=== PATIENT | female | born 1945 | race Caucasian/White ===

== ENCOUNTER 2018-04-15 08:24 | Inpatient (IN) ==
[2018-04-15 08:30] VITALS: BMI 18.0
[2018-04-15] MEDS ORDERED: DUONEB 0.5 MG/3 MG ONE (08:49)
--- NOTE | 2018-04-15 08:51 | DR.DIZZY ---
HPI Time seen Time Seen by Provider: 04/15/18 08:45 PCP Primary Care Physician: AVILA HPI Comment HPI Comment: [facility]. NOT RECOVERED FROM THAT ILLNESS YET. Complaint Chief Complaint Doctor Comments: INCREASING SOB, COUGH, NAUSEA AND GENERALIZE WEAKNESS TIMES 2 DAYS. GENERALIZE WEAKNESS FOR WEEKS AND GETTING WORSE. FEEL FOOD SIT IN HER STOMACK FOR A LONG TIME AND HAVE ABDOMINAL DISCOMFORT FROM IT. NO FEVER. Chief Complaint:: PT. C/O WEAKNESS, NAUSEA, LOW O2 SAT AND A PRODUCTIVE COUGH X 2 DAYS. PT. STATES SHE WAS ADMITTED TO [facility] ON 04/08/18 FOR RESPIRATORY ISSUES. Nurses Notes Reviewed Nurses Notes Review: Yes Source History Provided: Patient Mode of Arrival Mode of Arrival: Wheelchair Timing Onset of Chief Complaint: 04/13/18 Came on: Suddenly Duration Duration: Constant Location of Weakness Weakness Location: Generalized (WEAKNESS.) Context Onset: At rest and With light exertion Does pt take pot. toxic medication?: No History of: DM Stroke Symptoms: None Severity Severity: Abnormal activity level Modifying factors Worsens: Other (EXERTION) Associated signs and symptoms Associated Signs and Symptoms: Weak, Chest Pain and Nausea Other history Other history: COPD, CHF. PMH PMH Past Medical History: Yes Past Medical History: Anxiety, CHF, COPD, Coronary Artery Disease, Kidney Stones and Renal Disease Past Surgical History: Yes Surgical History: Other Past Surgical History Comment: RIGHT NEPHRECTOMY, LEFT EYE Family History History of Family Medical Conditions: Yes Family Medical History: Cancer Social History Does patient currently use any type of tobacco product: No Have you used tobacco products in the last 12 months: No Type of Tobacco Use: None Does any household member use tobacco: No Alcohol Use: None Do you use any recreational Drugs:: No Lives With: Family Lives Where: Home infectious screening In the last 2 months have you had wt loss of >10#?: NO Have you had fever, night sweats or hemotysis?: No Have you traveled outside the country in the last 6 months?: No Isolation: Standard ROS Review of Systems Constitutional: Fever, Weakness and Fatigue Eyes: No Symptoms Reported ENTM: Nose Congestion Respiratoy: Productive Cough, Short of Breath and Wheezing Cardiovascular: Chest Pain and Edema Gastrointestinal/Abdominal: Abdominal Pain and Nausea Genitourinary: No Symptoms Reported Neurological: Weakness Musculoskeletal: Muscle Pain Integumentary: Change in Color Hematologic/Lymphatic: Easy Bleeding and Easy Bruising Endocrine: No Symptoms Reported Psychiatric: No Symptoms Reported All Other Systems: Reviewed and Negative PE Vital Signs Vitals: Temperature 99.3 F Pulse Rate [Apical] 83 Pulse Rate 98 Respiratory Rate 25 Blood Pressure [Left Arm] 122/47 Blood Pressure [Right Arm] 130/62 Blood Pressure 133/59 O2 Sat by Pulse Oximetry 93 General Limitations: No Limitations General Appearance: Alert and In Distress Head Head Exam: Normal Inspection Eyes Eye exam: Normal Appearance Pupils: Regular, Round: Bilateral and Reactive: Bilateral Sclera/Conjunctival: Normal Inspection: Bilateral ENT ENT Exam: Normal External Ear Exam Neck Neck Exam: Trachea Midline; negative Tenderness, Meningismus and Lymphadenopathy Chest Chest Inspection: Symmetric Chest Wall Rise Respiratory Respiratory Exam: Normal Lung Sounds Bilat Respiratory Exam: Bilateral: Wheezing and Bilateral: Rhonchi, Upper: Wheezing and Upper: Rhonchi and Lower: Wheezing and Lower: Rhonchi Cardiovascular Cardiovascular Exam: Regular Rate and Normal Rhythm Abdominal Exam Abdominal Exam: Normal Bowel Sounds and Soft; negative Tenderness Rectal Rectal Exam: Deferred Extremeties Extremities Exam: Normal Inspection; negative Edema Back Back Exam: Normal Inspection Neurologic Neurological Exam: Alert and Oriented X3; negative Motor Sensory Deficit Patient Oriented To: Person, Place and Time Speech: Fluid Speech Cranial Nerve Exam: EOM Function (II, III, IV, ): Normal, Facial Sensation (V): Normal, Facial Palsy (VII): Normal, Gag reflex (XI): Normal and Tongue Deviation: Normal Motor Strength - LUE: 5/5 Motor Strength - RUE: 5/5 Motor Strength - LLE: 5/5 Motor Strength - RLE: 5/5 Upper Motor Neuron Exam: Babinski Sign: Normal Psychiatric Psychiatric Exam: Normal Affect and Normal Mood Skin Skin Exam: Intact MDM Differential Diagnosis Differential Diagnosis: Anemia, Dehydration, Dysrhythmia, Electrolyte disorder, Hypoglycemia, Myocardial infarction and Other (PNEUMONIA) COURSE Treatment Treatment: SEE ORDERS. Education/Counseling Education/Counseling: Patient Educated On: Diagnosis ROR Labs Reviewed Result Diagrams: 04/15/18 08:55 04/15/18 08:55 Laboratory: WBC 10.9 X10^3/uL (3.6-10.0) H 04/15/18 08:55 RBC 4.23 X10^6/uL (3.5-5.4) 04/15/18 08:55 Hgb 12.8 g/dL (12.0-16.0) 04/15/18 08:55 Hct 38.1 % (36.0-47.0) 04/15/18 08:55 MCV 90.0 fL (80.0-100.0) 04/15/18 08:55 MCH 30.3 pg (27.0-34.0) 04/15/18 08:55 MCHC 33.7 g/dL (33.0-35.0) 04/15/18 08:55 RDW 14.7 % (11.6-16.5) 04/15/18 08:55 Plt Count 233 X10^3/uL (150.0-450.0) 04/15/18 08:55 MPV 7.7 fL (7.4-11.0) 04/15/18 08:55 Neut % (Auto) 78.8 % (42.0-75.0) H 04/15/18 08:55 Lymph % (Auto) 7.3 % (21.0-51.0) L 04/15/18 08:55 [place] % (Auto) 11.0 % (0.0-13.0) 04/15/18 08:55 Eos % (Auto) 2.3 % (0.9-2.9) 04/15/18 08:55 Baso % (Auto) 0.6 % (0.2-1.0) 04/15/18 08:55 Neut # (Auto) 8.6 x10^3/uL (2.2-4.8) H 04/15/18 08:55 Lymph # (Auto) 0.8 X10^3/uL (1.3-2.9) L 04/15/18 08:55 [place] # (Auto) 1.2 x10^3/uL (0.3-0.8) H 04/15/18 08:55 Eos # (Auto) 0.3 x10^3/uL (0.0-0.2) H 04/15/18 08:55 Baso # (Auto) 0.1 X10^3/uL (0.0-0.1) 04/15/18 08:55 Absolute Nucleated RBC 0.1 /100WBC 04/15/18 08:55 Sample Site Left brachial 04/15/18 08:52 ABG pH 7.330 (7.35-7.45) L 04/15/18 08:52 ABG pCO2 83.0 mmHg (35.0-45.0) H* 04/15/18 08:52 ABG pO2 46.0 mmHg (80.0-100.0) L* 04/15/18 08:52 ABG HCO3 43.8 mmol/L (22-26) H* 04/15/18 08:52 ABG O2 Saturation 78.0 % (90-100) L* 04/15/18 08:52 ABG Base Excess 14.2 mmol/L (-2.0-2.0) H 04/15/18 08:52 Ramin Test Na 04/15/18 08:52 A-a Gradient 50.0 mmHg 04/15/18 08:52 FiO2 28.0 04/15/18 08:52 Blood Gas Comments Lizandro well aw 04/15/18 08:52 Sodium 137 mmol/L (136-145) 04/15/18 08:55 Corrected Sodium TNP 04/15/18 08:55 Potassium 4.8 mmol/L (3.5-5.1) 04/15/18 08:55 Chloride 97 mmol/L (98-107) L 04/15/18 08:55 Carbon Dioxide 36.8 mmol/L (21-32) H 04/15/18 08:55 BUN 13 mg/dL (7-18) 04/15/18 08:55 Creatinine 0.55 mg/dL (0.55-1.02) 04/15/18 08:55 Est GFR (MDRD) Af Amer > 60 (>60) 04/15/18 08:55 Est GFR (MDRD) Non-Af > 60 (>60) 04/15/18 08:55 Glucose 101 mg/dL (65-99) H 04/15/18 08:55 Lactic Acid 0.5 mmol/L (0.4-2.0) 04/15/18 08:55 Calcium 8.5 mg/dL (8.5-10.1) 04/15/18 08:55 Corrected Calcium 9.5 mg/dL (8.5-10.1) 04/15/18 08:55 Total Bilirubin 0.70 mg/dL (0.2-1.0) 04/15/18 08:55 AST 25 Units/L (15-37) 04/15/18 08:55 ALT 20 Units/L (12-78) 04/15/18 08:55 Alkaline Phosphatase 69 Units/L (46-116) 04/15/18 08:55 Creatine Kinase 18 Units/L (26-192) L 04/15/18 08:55 CK-MB (CK-2) < 1.0 ng/mL (0-4.0) 04/15/18 08:55 CK/CKMB % Calc 5.6 % (<4) 04/15/18 08:55 Troponin I 0.02 ng/mL (0-1.5) 04/15/18 08:55 C-Reactive Protein 56.40 mg/L (0-3.0) H 04/15/18 08:55 Total Protein 6.7 g/dL (6.4-8.2) 04/15/18 08:55 Albumin 2.8 g/dL (3.4-5.0) L 04/15/18 08:55 Globulin 3.9 g/dL (2.5-4.5) 04/15/18 08:55 Albumin/Globulin Ratio 0.7 Ratio (1.1-2.1) L 04/15/18 08:55 EKG Rate: 95 [place]: Normal Rhythm: NSR Block: LBBB Hypertrophy: None ST: Ant, Lat and Nonsp
[2018-04-15 09:07] LABS: ABG BASE EXCESS 14.2 mmol/L (-2.0-2.0)
[2018-04-15] MEDS ORDERED: DUONEB 0.5 MG/3 MG NEB ONE (09:07)
[2018-04-15 09:09] LABS: ABG HCO3 43.8 mmol/L (22-26)
[2018-04-15 09:19] LABS: BASOPHILS # (AUTO) 0.1 X10^3/uL (0.0-0.1); BASOPHILS % (AUTO) 0.6 % (0.2-1.0); EOSINOPHILS # (AUTO) 0.3 x10^3/uL (0.0-0.2); EOSINOPHILS % (AUTO) 2.3 % (0.9-2.9); HEMATOCRIT 38.1 % (36.0-47.0); HEMOGLOBIN 12.8 g/dL (12.0-16.0); LYMPHOCYTES # (AUTO) 0.8 X10^3/uL (1.3-2.9); LYMPHOCYTES % (AUTO) 7.3 % (21.0-51.0); MEAN CORPUSCULAR HEMOGLOBIN 30.3 pg (27.0-34.0); MEAN CORPUSCULAR HGB CONC 33.7 g/dL (33.0-35.0); MEAN PLATELET VOLUME 7.7 fL (7.4-11.0); MONOCYTES # (AUTO) 1.2 x10^3/uL (0.3-0.8); NEUTROPHILS # (AUTO) 8.6 x10^3/uL (2.2-4.8); NEUTROPHILS % (AUTO) 78.8 % (42.0-75.0); PLATELET COUNT 233 X10^3/uL (150.0-450.0); RED BLOOD COUNT 4.23 X10^6/uL (3.5-5.4); RED CELL DISTRIBUTION WIDTH 14.7 % (11.6-16.5); WHITE BLOOD COUNT 10.9 X10^3/uL (3.6-10.0)
[2018-04-15 09:32] LABS: BLOOD UREA NITROGEN 13 mg/dL (7-18); CALCIUM 8.5 mg/dL (8.5-10.1); CARBON DIOXIDE 36.8 mmol/L (21-32); CHLORIDE 97 mmol/L (98-107); CREATININE 0.55 mg/dL (0.55-1.02); SODIUM 137 mmol/L (136-145); TROPONIN I 0.02 ng/mL (0-1.5); eGFR NON BLACK RACES > 60 (>60)
[2018-04-15 09:34] LABS: LACTIC ACID 0.5 mmol/L (0.4-2.0)
[2018-04-15 09:37] LABS: ALANINE AMINOTRANSFERASE 20 Units/L (12-78); ALBUMIN 2.8 g/dL (3.4-5.0); ALKALINE PHOSPHATASE 69 Units/L (46-116); ASPARTATE AMINO TRANSFERASE 25 Units/L (15-37); CKMB % 5.6 % (<4); COR CA(FOR HYPOALB) 9.5 mg/dL (8.5-10.1); CREATINE KINASE 18 Units/L (26-192); CREATINE KINASE MB < 1.0 ng/mL (0-4.0); TOTAL PROTEIN 6.7 g/dL (6.4-8.2)
--- NOTE | 2018-04-15 09:52 | RAD ---
HISTORY: Shortness of breath, weakness, hypoxia Study: Chest AP portable Comparison: 02/13/2016 Findings: The heart is within normal limits in size. The xavier are normal. The aorta is calcified. The lungs are hyperinflated consistent with COPD. Diffuse interstitial lung changes are present progressive when compared with the prior examination. A superimposed acute pneumonitis could not be excluded. Pleuro parenchymal scarring is present in the right lung apex stable when compared with the prior examination. The bony thorax is unremarkable. IMPRESSION: Hyperinflation consistent with COPD diffuse interstitial lung changes progressive when compared with the prior examination. This could represent progressive fibrotic change or superimposed acute pneumonitis Stable pleuro parenchymal scarring right upper lobe Reported By:
[2018-04-15] MEDS ORDERED: SOLU-Medrol 125 MG VIAL IVP ONE (09:58)
[2018-04-15] MEDS ORDERED: ROCEPHIN VIAL 1 GRAM IVP ONE (09:58)
[2018-04-15] MEDS ORDERED: ROCEPHIN VIAL 1 GRAM ONE (10:10)
[2018-04-15] MEDS ORDERED: SOLU-Medrol 125 MG VIAL ONE (10:10)
[2018-04-15] MEDS: DUONEB 0.5 MG/3 MG NEB SCH ×3 (12:00→20:49)
[2018-04-15] MEDS ORDERED: SOLU-Medrol 125 MG VIAL IVP SCH (14:00)
[2018-04-15] MEDS ORDERED: XANAX PO PRN (14:49)
[2018-04-15] MEDS ORDERED: PREVNAR 13 IM ONE (18:25)
[2018-04-15] MEDS: SOLU-Medrol 40 MG VIAL IVP SCH (20:25)
[2018-04-15] MEDS: PULMICORT NEB TX 0.5 MG NEB SCH (20:49)
[2018-04-15] MEDS ORDERED: PATIENT'S HOME MEDICATION (Fluticasone-Salmeterol 1 PUFF) IN SCH (21:00)
[2018-04-15 23:02] LABS: BILIRUBIN,URINE NEGATIVE (NEGATIVE); BLOOD/HEMOGLOBIN,URINE 5+ (NEGATIVE); GLUCOSE, URINE 2+ (NEGATIVE); KETONES,URINE 1+ (NEGATIVE); LEUKOCYTE ESTERASE ,URINE 1+ (NEGATIVE); NITRITES,URINE NEGATIVE (NEGATIVE); PROTEIN,URINE 4+ (NEGATIVE); UROBILINOGEN,URINE NORMAL (NORMAL)
[2018-04-15 23:48] LABS: AMORPHOUS SEDIMENT,UR TRACE /HPF (NEGATIVE); APPEARANCE,URINE SLIGHTLY HAZY (CLEAR); BACTERIA,URINE TRACE /HPF (NEGATIVE); COLOR,URINE DARK YELLOW (YELLOW); RBC,URINE 30-50 /HPF (NONE SEEN); SQUAMOUS EPITHELIAL CELL,UR FEW /HPF (NEGATIVE)
[2018-04-16] MEDS: DUONEB 0.5 MG/3 MG NEB SCH ×6 (01:01→20:34)
[2018-04-16 06:22] LABS: BASOPHILS % (AUTO) 0.1 % (0.2-1.0); HEMATOCRIT 40.3 % (36.0-47.0); HEMOGLOBIN 13.3 g/dL (12.0-16.0); LYMPHOCYTES # (AUTO) 0.2 X10^3/uL (1.3-2.9); LYMPHOCYTES % (AUTO) 3.1 % (21.0-51.0); MEAN CORPUSCULAR HEMOGLOBIN 30.1 pg (27.0-34.0); MEAN CORPUSCULAR HGB CONC 32.9 g/dL (33.0-35.0); MEAN CORPUSCULAR VOLUME 91.5 fL (80.0-100.0); MEAN PLATELET VOLUME 8.1 fL (7.4-11.0); MONOCYTES # (AUTO) 0.2 x10^3/uL (0.3-0.8); MONOCYTES % (AUTO) 2.2 % (0.0-13.0); NEUTROPHILS # (AUTO) 7.5 x10^3/uL (2.2-4.8); NEUTROPHILS % (AUTO) 94.6 % (42.0-75.0); PLATELET COUNT 203 X10^3/uL (150.0-450.0); RED BLOOD COUNT 4.41 X10^6/uL (3.5-5.4); RED CELL DISTRIBUTION WIDTH 14.9 % (11.6-16.5)
[2018-04-16 06:37] LABS: ALANINE AMINOTRANSFERASE 20 Units/L (12-78); ALBUMIN 2.7 g/dL (3.4-5.0); ALKALINE PHOSPHATASE 66 Units/L (46-116); ASPARTATE AMINO TRANSFERASE 20 Units/L (15-37); BLOOD UREA NITROGEN 25 mg/dL (7-18); CALCIUM 8.9 mg/dL (8.5-10.1); CARBON DIOXIDE 35.3 mmol/L (21-32); CHLORIDE 99 mmol/L (98-107); COR CA(FOR HYPOALB) 9.9 mg/dL (8.5-10.1); COR NA(FOR HYPERGLY) 140 mmol/L (136-145); CREATININE 0.67 mg/dL (0.55-1.02); SODIUM 139 mmol/L (136-145); TOTAL PROTEIN 6.9 g/dL (6.4-8.2); eGFR NON BLACK RACES > 60 (>60)
[2018-04-16 07:03] LABS: BAND NEUTROPHILS % 2 % (0-10); PLATELET MORPHOLOGY COMMENT NORMAL (NORMAL)
[2018-04-16] MEDS ORDERED: NORVASC TAB 2.5 MG ONE (07:58)
[2018-04-16] MEDS: SOLU-Medrol 40 MG VIAL IVP SCH ×3 (08:24→20:59)
[2018-04-16] MEDS: NORVASC TAB 2.5 MG PO SCH (08:24)
[2018-04-16] MEDS: ROCEPHIN VIAL 1 GRAM IVP SCH (08:24)
[2018-04-16] MEDS: PULMICORT NEB TX 0.5 MG NEB SCH ×2 (08:54→20:34)
[2018-04-16] MEDS ORDERED: NS 250 ML IV 250 ML IV ONE (11:03)
[2018-04-16] MEDS: PROTONIX INJ 40 MG VIAL IVP SCH (11:12)
[2018-04-16] MEDS: LEVAQUIN PREMIX IV 500 MG 500 MG/100 ML BAG IV SCH (11:12)
[2018-04-16] MEDS ORDERED: NS 1/2 1000 ML IV 1,000 ML IV ONE (17:36)
[2018-04-16] MEDS: NS 1/2 1000 ML IV 1,000 ML IV SCH (18:01)
--- NOTE | 2018-04-16 19:03 | DR.H&P ---
H&P - History & Physical for Day of: H&P Date: 04/15/18 - Chief Complaint Chief Complaint: SOB, CCC, WHEEZING - History of Present Illness History of Present Illness: 72 WF ER ADMISSION WITH COPD EXACERBATION. PT HAS HX OF COPD WITH RESP FAILURE ON HOME O2. PT STATES SHE WAS SEEN PREVIOUSLY IN [place] ER THEN RELEASED AND HAS BECAME WEAKER. PT WAS HYPOXIC IN ER. ADMITTED FOR TREATMENT OF ACUTE RESP DISTRESS, COPD EXACERBATION. - Past Medical History Past Medical History: Coronary Artery Disease, Renal Disease, Anxiety, COPD, Kidney Stones, CHF Additional Medical History: Blind (L) Eye, Cataracts, Emphysema, Hepatits C, Osteoporosis - Past Surgical History Surgical History: Other Additional Surgical History: Nephrectomy, Eye Surgery - Family History Family Medical History: Diabetes Mellitus - Social History Does patient currently use any type of tobacco product: No Have you used tobacco products in the last 12 months: No Type of Tobacco Use: None Does any household member use tobacco: No Alcohol Use: None Drug Use: None - Medications Home Medications: No Known Drug Allergies Allergy (Verified 04/15/18 08:30) CONTINUE taking the following medications amlodipine 2.5 mg PO DAILY 04/15/18 [History] aspirin [Aspir-81] 81 mg PO DAILY 04/15/18 [History] fluticasone-salmeterol [Advair Diskus] 1 puff INHALATION BID 04/15/18 [History] ipratropium-albuterol 1 ea NEB Q4HR PRN 04/15/18 [History] - Review of Systems Constitutional: Chills, Weakness, Malaise Eyes: No Symptoms Reported ENT: No Symptoms Reported Respiratory: Cough, Shortness of Breath, SOB with Excertion, Sputum, Wheezing Cardiovascular: Palpitations, Light Headedness Gastrointestinal: No Symptoms Reported Genitourinary: No Symptoms Reported Musculoskeletal: No Symptoms Reported Skin: No Symptoms Reported Neurological: Weakness - Physical Exam Vital Signs: Temperature 98.4 F Pulse Rate [Left Brachial] 87 Pulse Rate [Apical] 83 Pulse Rate 86 Respiratory Rate 22 Blood Pressure [Left Arm] 134/60 Blood Pressure [Right Arm] 130/62 Blood Pressure 133/59 O2 Sat by Pulse Oximetry 96 Oriented: Normal Eyes: Normal Ear: Normal Nose: Normal Throat: Normal Respiratory: Diminished Throughout, Wheezes Throughout Cardiovascular: Tachycardia : Normal Auscultation: Bowel Sounds: Normal Palpation: Normal Tenderness: Normal Skin: Decreased [place]urgur Musculoskeletal: Normal Psychiatric: Anxiety Affect: Anxious Speech Pattern: Clear, Appropriate - Assessment/Plan (1) COPD (chronic obstructive pulmonary disease) with acute bronchitis Status: Acute Plan: ADMIT, PNEUMONIA PROTCOL. SPUTUM CULTURE, SUPPLEMENTAL O2, PRN BIPAP. IV SOLU MEDROL, ADMISSION LABS. GENTLE HYDRATION WITH I & OS. EKG ON ADMISSION AND CXR IN ER ON ADMISSION (2) Acute respiratory distress Status: Acute (3) CHF (congestive heart failure) Status: Chronic (4) Hepatitis C Status: Chronic (5) Anxiety Status: Chronic (6) Hypoxia Status: Acute - Allergies Allergies/Adverse Reactions: Allergies Allergy/AdvReac Type Severity Reaction Status Date / Time No Known Drug Allergies Allergy Verified 04/15/18 08:30
[2018-04-17] MEDS: DUONEB 0.5 MG/3 MG NEB SCH ×6 (01:06→20:11)
[2018-04-17 05:16] LABS: BASOPHILS % (AUTO) 0.3 % (0.2-1.0); HEMATOCRIT 37.9 % (36.0-47.0); HEMOGLOBIN 12.2 g/dL (12.0-16.0); LYMPHOCYTES # (AUTO) 0.2 X10^3/uL (1.3-2.9); LYMPHOCYTES % (AUTO) 1.2 % (21.0-51.0); MEAN CORPUSCULAR HEMOGLOBIN 29.5 pg (27.0-34.0); MEAN CORPUSCULAR HGB CONC 32.2 g/dL (33.0-35.0); MEAN CORPUSCULAR VOLUME 91.5 fL (80.0-100.0); MEAN PLATELET VOLUME 7.9 fL (7.4-11.0); MONOCYTES # (AUTO) 0.4 x10^3/uL (0.3-0.8); MONOCYTES % (AUTO) 2.3 % (0.0-13.0); NEUTROPHILS # (AUTO) 15.8 x10^3/uL (2.2-4.8); NEUTROPHILS % (AUTO) 96.2 % (42.0-75.0); PLATELET COUNT 251 X10^3/uL (150.0-450.0); RED BLOOD COUNT 4.14 X10^6/uL (3.5-5.4); RED CELL DISTRIBUTION WIDTH 14.5 % (11.6-16.5)
[2018-04-17 05:17] LABS: ALANINE AMINOTRANSFERASE 18 Units/L (12-78); ALBUMIN 2.6 g/dL (3.4-5.0); ALKALINE PHOSPHATASE 64 Units/L (46-116); ASPARTATE AMINO TRANSFERASE 16 Units/L (15-37); BLOOD UREA NITROGEN 22 mg/dL (7-18); CALCIUM 8.7 mg/dL (8.5-10.1); CARBON DIOXIDE 35.1 mmol/L (21-32); CHLORIDE 101 mmol/L (98-107); COR CA(FOR HYPOALB) 9.8 mg/dL (8.5-10.1); COR NA(FOR HYPERGLY) 139 mmol/L (136-145); SODIUM 138 mmol/L (136-145); TOTAL PROTEIN 6.3 g/dL (6.4-8.2); eGFR NON BLACK RACES > 60 (>60)
[2018-04-17] MEDS: SOLU-Medrol 40 MG VIAL IVP SCH ×3 (05:19→21:01)
[2018-04-17 05:57] LABS: WHITE BLOOD COUNT 16.4 X10^3/uL (3.6-10.0)
[2018-04-17 05:58] LABS: PLATELET MORPHOLOGY COMMENT NORMAL (NORMAL)
--- NOTE | 2018-04-17 07:43 | RAD ---
HISTORY: Shortness of breath Study: Chest AP portable Comparison: 04/15/2018 Findings: The heart is within normal limits in size. The xavier are normal. The aorta is calcified. The lungs remain hyperinflated consistent with COPD. Diffuse mild interstitial lung changes are again identified, stable. Pleuro parenchymal scarring is present in the right lung apex, stable. No pleural effusions are identified. The bony thorax is unremarkable. IMPRESSION: No significant change from the prior examination Reported By:
[2018-04-17] MEDS ORDERED: NORVASC TAB 2.5 MG ONE (09:27)
[2018-04-17] MEDS: PULMICORT NEB TX 0.5 MG NEB SCH ×2 (09:38→20:11)
[2018-04-17 09:47] LABS: ABG BASE EXCESS 12.8 mmol/L (-2.0-2.0)
[2018-04-17 09:50] LABS: ABG ALLEN TEST POS; ABG HCO3 40.6 mmol/L (22-26)
[2018-04-17] MEDS ORDERED: PREVNAR 13 IM ONE (09:56)
[2018-04-17] MEDS: ROCEPHIN VIAL 1 GRAM IVP SCH (09:58)
[2018-04-17] MEDS: PROTONIX INJ 40 MG VIAL IVP SCH (09:58)
[2018-04-17] MEDS: NS 1/2 1000 ML IV 1,000 ML IV SCH (09:59)
[2018-04-17] MEDS: NORVASC TAB 2.5 MG PO SCH (09:59)
[2018-04-17] MEDS: LEVAQUIN PREMIX IV 500 MG 500 MG/100 ML BAG IV SCH (10:01)
[2018-04-17 10:10] LABS: CHOL/HDL RATIO 1.6 (0.0-5.0)
--- NOTE | 2018-04-17 16:28 | VAS ---
HISTORY: Weakness CHF COPD coronary artery disease Study: Carotid Doppler ultrasound Comparison: None Technique: Multiple grayscale and color flow Doppler images of the carotid and vertebral arteries are performed with peak systolic velocity measurements and waveform analysis. Findings: On real-time scanning plaquing is seen in the right common carotid artery moderate calcific plaquing is seen in the carotid bulb. Waveforms are normal peak systolic velocities are in the normal range maximal 93 centimeters/second in the distal right ICA. On the left plaquing is seen in the distal left common carotid artery and carotid bulb. Waveforms are normal peak systolic velocities are in the normal range maximal 103 centimeters/second in the mid left ICA. No flow is seen in the left vertebral artery i.e. the left vertebral is not visualized. Antegrade flow is seen in the right vertebral artery. Turbulent flow is seen in the distal left CCA ICA and ECA but no high-grade stenoses are seen at real-time scanning or suggested by elevated velocities or systolic velocity ratios. IMPRESSION: 1. No hemodynamically significant stenoses at real-time scanning or by peak systolic velocities or systolic velocity ratios. Moderate plaquing is seen in both carotid bulbs and distal CCA ease. 2. Normal antegrade flow seen in the right vertebral arteries but the left vertebral artery is not identified. Reported By:
[2018-04-17] MEDS: COLACE CAP 100 MG PO PRN (16:31)
[2018-04-17] MEDS: MILK OF MAGNESIA PO PRN (16:31)
--- NOTE | 2018-04-17 17:27 | PCM.PROG ---
Progress Note - Progress Note for Day of Date of Exam: 04/16/18 - Subjective Subjective: 72 WF ER ADMISSION ON 04/16 WITH COPD EXACERBATION. PT IS CURRENTLY ON CONTINUOUS O2 AND IV ATBX. 1/2 NS AT KVO. PT STATES SHE FEEL MUCH BETTER THIS AM, CONTINUES WITH MILD WEAKNESS. PT DENIES NEEDING BIPAP AT THIS TIME, SHE HAS LONG HX OF CO2 RETENTION AND USES TRILOGY PRN AT HOME - Past Medical Family Social History Past Med/Fam/Surg Hx: No changes since H&P Allergies: Allergies No Known Drug Allergies Allergy (Verified 04/15/18 08:30) - Review of Systems ROS: No change since H&P - Vital Signs and I&O's Vital Signs: Temperature 98.0 F Pulse Rate [Right Brachial] 90 Pulse Rate [Left Brachial] 88 Pulse Rate [Apical] 83 Pulse Rate 88 Respiratory Rate 20 Blood Pressure [Left Arm] 118/62 Blood Pressure [Right Arm] 124/59 Blood Pressure 133/59 O2 Sat by Pulse Oximetry 96 Intake and Output: Intake & Output 04/15/18 04/16/18 04/17/18 04/18/18 11:59 11:59 11:59 11:59 Intake Total 710 / 710 750 / 750 1009 / 1009 Output Total 400 / 400 420 / 420 400 / 400 Balance 310 / 310 330 / 330 609 / 609 - Physical Exam Oriented: Normal Eyes: Normal Ear: Normal Nose: Normal Throat: Normal Cardiovascular: Tachycardia : Normal Auscultation: Bowel Sounds: Normal Tenderness: Normal Skin: Decreased [place]urgur Musculoskeletal: Normal Psychiatric: Anxiety Affect: Anxious Speech Pattern: Clear, Appropriate - Laboratory and Diagnostics Result Diagrams: 04/17/18 04:37 04/17/18 04:37 Labs: 04/15/18 08:50 Blood Blood Culture - Preliminary 04/15/18 08:55 Blood Blood Culture - Preliminary 04/15/18 12:50 Sputum - Expectorated Sputum Sputum Culture - Preliminary Enterobacter Cloacae 04/15/18 12:50 Sputum - Expectorated Sputum - Final Laboratory WBC 16.4 X10^3/uL (3.6-10.0) H D 04/17/18 04:37 RBC 4.14 X10^6/uL (3.5-5.4) 04/17/18 04:37 Hgb 12.2 g/dL (12.0-16.0) 04/17/18 04:37 Hct 37.9 % (36.0-47.0) 04/17/18 04:37 MCV 91.5 fL (80.0-100.0) 04/17/18 04:37 MCH 29.5 pg (27.0-34.0) 04/17/18 04:37 MCHC 32.2 g/dL (33.0-35.0) L 04/17/18 04:37 RDW 14.5 % (11.6-16.5) 04/17/18 04:37 Plt Count 251 X10^3/uL (150.0-450.0) 04/17/18 04:37 Plt Count Comment Adequate (ADEQUATE) 04/17/18 04:37 MPV 7.9 fL (7.4-11.0) 04/17/18 04:37 Neut % (Auto) 96.2 % (42.0-75.0) H 04/17/18 04:37 Lymph % (Auto) 1.2 % (21.0-51.0) L 04/17/18 04:37 [place] % (Auto) 2.3 % (0.0-13.0) 04/17/18 04:37 Eos % (Auto) 0.0 % (0.9-2.9) L 04/17/18 04:37 Baso % (Auto) 0.3 % (0.2-1.0) 04/17/18 04:37 Neut # (Auto) 15.8 x10^3/uL (2.2-4.8) H 04/17/18 04:37 Lymph # (Auto) 0.2 X10^3/uL (1.3-2.9) L 04/17/18 04:37 [place] # (Auto) 0.4 x10^3/uL (0.3-0.8) 04/17/18 04:37 Eos # (Auto) 0.0 x10^3/uL (0.0-0.2) 04/17/18 04:37 Baso # (Auto) 0.0 X10^3/uL (0.0-0.1) 04/17/18 04:37 Absolute Nucleated RBC 0.1 /100WBC 04/17/18 04:37 Total Counted 100 04/17/18 04:37 Neutrophils % (Manual) 97 % (39-76) H 04/17/18 04:37 Band Neutrophils % 2 % (0-10) 04/16/18 04:30 Lymphocytes % (Manual) 1 % (13-43) L 04/17/18 04:37 Monocytes % (Manual) 2 % (4-9) L 04/17/18 04:37 Plt Morphology Comment Normal (NORMAL) 04/17/18 04:37 RBC Morphology Normal (NORMAL) 04/17/18 04:37 Sample Site Rr 04/17/18 09:40 ABG pH 7.390 (7.35-7.45) 04/17/18 09:40 ABG pCO2 67.0 mmHg (35.0-45.0) H* 04/17/18 09:40 ABG pO2 71.0 mmHg (80.0-100.0) L 04/17/18 09:40 ABG HCO3 40.6 mmol/L (22-26) H* 04/17/18 09:40 ABG O2 Saturation 94.0 % (90-100) 04/17/18 09:40 ABG Base Excess 12.8 mmol/L (-2.0-2.0) H 04/17/18 09:40 Ramin Test Pos 04/17/18 09:40 A-a Gradient 73.0 mmHg 04/17/18 09:40 FiO2 32.0 04/17/18 09:40 Blood Gas Comments Pt kika rx well llj 04/17/18 09:40 Sodium 138 mmol/L (136-145) 04/17/18 04:37 Corrected Sodium 139 mmol/L (136-145) 04/17/18 04:37 Potassium 5.0 mmol/L (3.5-5.1) 04/17/18 04:37 Chloride 101 mmol/L (98-107) 04/17/18 04:37 Carbon Dioxide 35.1 mmol/L (21-32) H 04/17/18 04:37 BUN 22 mg/dL (7-18) H 04/17/18 04:37 Creatinine 0.70 mg/dL (0.55-1.02) 04/17/18 04:37 Est GFR (MDRD) Af Amer > 60 (>60) 04/17/18 04:37 Est GFR (MDRD) Non-Af > 60 (>60) 04/17/18 04:37 Glucose 141 mg/dL (65-99) H 04/17/18 04:37 POC Glucose (mg/dL) 126 mg/dL (65-99) H 04/17/18 05:18 Lactic Acid 0.5 mmol/L (0.4-2.0) 04/15/18 08:55 Calcium 8.7 mg/dL (8.5-10.1) 04/17/18 04:37 Corrected Calcium 9.8 mg/dL (8.5-10.1) 04/17/18 04:37 Magnesium 2.0 mg/dL (1.7-2.9) 04/16/18 04:30 Total Bilirubin 0.20 mg/dL (0.2-1.0) 04/17/18 04:37 AST 16 Units/L (15-37) 04/17/18 04:37 ALT 18 Units/L (12-78) 04/17/18 04:37 Alkaline Phosphatase 64 Units/L (46-116) 04/17/18 04:37 Creatine Kinase 18 Units/L (26-192) L 04/15/18 08:55 CK-MB (CK-2) < 1.0 ng/mL (0-4.0) 04/15/18 08:55 CK/CKMB % Calc 5.6 % (<4) 04/15/18 08:55 Troponin I 0.02 ng/mL (0-1.5) 04/15/18 08:55 C-Reactive Protein 56.40 mg/L (0-3.0) H 04/15/18 08:55 Total Protein 6.3 g/dL (6.4-8.2) L 04/17/18 04:37 Albumin 2.6 g/dL (3.4-5.0) L 04/17/18 04:37 Globulin 3.7 g/dL (2.5-4.5) 04/17/18 04:37 Albumin/Globulin Ratio 0.7 Ratio (1.1-2.1) L 04/17/18 04:37 Triglycerides 35 mg/dL (0-150) 04/17/18 04:37 Cholesterol 146 mg/dL (0-200) 04/17/18 04:37 LDL Cholesterol, Calc 46 mg/dL (0-100) 04/17/18 04:37 HDL Cholesterol 93 mg/dL (40-60) H 04/17/18 04:37 Cholesterol/HDL Ratio 1.6 (0.0-5.0) 04/17/18 04:37 Amylase 60 Units/L (25-115) 04/17/18 04:37 Lipase 83 Units/L (73-393) 04/17/18 04:37 Specimen Type Clean catch urine 04/15/18 22:51 Urine Color Dark yellow (YELLOW) 04/15/18 22:51 Urine Appearance Slightly hazy (CLEAR) 04/15/18 22:51 Urine pH 5.0 (5.0 - 8.0) 04/15/18 22:51 Ur Specific [place] 1.025 (1.000-1.030) 04/15/18 22:51 Urine Protein 4+ (NEGATIVE) 04/15/18 22:51 Urine Glucose (UA) 2+ (NEGATIVE) 04/15/18 22:51 Urine Ketones 1+ (NEGATIVE) 04/15/18 22:51 Urine Occult Blood 5+ (NEGATIVE) 04/15/18 22:51 Urine Nitrite Negative (NEGATIVE) 04/15/18 22:51 Urine Bilirubin Negative (NEGATIVE) 04/15/18 22:51 Urine Urobilinogen Normal (NORMAL) 04/15/18 22:51 Ur Leukocyte Esterase 1+ (NEGATIVE) 04/15/18 22:51 Urine RBC 30-50 /HPF (NONE SEEN) 04/15/18 22:51 Urine WBC 0-2 /HPF (NONE SEEN) 04/15/18 22:51 Ur Squamous Epith Cells Few /HPF (NEGATIVE) 04/15/18 22:51 Amorphous Sediment Trace /HPF (NEGATIVE) 04/15/18 22:51 Urine Bacteria Trace /HPF (NEGATIVE) 04/15/18 22:51 Ur Culture Indicated? No/not indicated 04/15/18 22:51 - Plan (1) COPD (chronic obstructive pulmonary disease) with acute bronchitis Status: Acute Plan: CONTINUE PNEUMONIA PROTCOL. SPUTUM CULTURE, SUPPLEMENTAL O2, PRN BIPAP. IV SOLU MEDROL, ADMISSION LABS. GENTLE HYDRATION WITH I & OS. EKG ON ADMISSION AND CXR IN ER ON ADMISSION (2) Acute respiratory distress Status: Acute (3) CHF (congestive heart failure) Status: Chronic (4) Hepatitis C Status: Chronic (5) Anxiety Status: Chronic (6) Hypoxia Status: Acute
[2018-04-18] MEDS: DUONEB 0.5 MG/3 MG NEB SCH ×3 (01:09→08:04)
[2018-04-18 05:20] LABS: BASOPHILS # (AUTO) 0.1 X10^3/uL (0.0-0.1); BASOPHILS % (AUTO) 0.4 % (0.2-1.0); HEMATOCRIT 36.2 % (36.0-47.0); HEMOGLOBIN 11.7 g/dL (12.0-16.0); LYMPHOCYTES # (AUTO) 0.2 X10^3/uL (1.3-2.9); LYMPHOCYTES % (AUTO) 1.3 % (21.0-51.0); MEAN CORPUSCULAR HEMOGLOBIN 29.5 pg (27.0-34.0); MEAN CORPUSCULAR HGB CONC 32.3 g/dL (33.0-35.0); MEAN CORPUSCULAR VOLUME 91.3 fL (80.0-100.0); MEAN PLATELET VOLUME 7.9 fL (7.4-11.0); MONOCYTES # (AUTO) 0.3 x10^3/uL (0.3-0.8); MONOCYTES % (AUTO) 2.3 % (0.0-13.0); NEUTROPHILS # (AUTO) 14.5 x10^3/uL (2.2-4.8); PLATELET COUNT 269 X10^3/uL (150.0-450.0); RED BLOOD COUNT 3.97 X10^6/uL (3.5-5.4); RED CELL DISTRIBUTION WIDTH 14.6 % (11.6-16.5); WHITE BLOOD COUNT 15.1 X10^3/uL (3.6-10.0)
[2018-04-18] MEDS: COLACE CAP 100 MG PO PRN (05:24)
[2018-04-18] MEDS: SOLU-Medrol 40 MG VIAL IVP SCH (05:24)
[2018-04-18] MEDS: MILK OF MAGNESIA PO PRN (05:25)
[2018-04-18 05:47] LABS: ALANINE AMINOTRANSFERASE 19 Units/L (12-78); ALBUMIN 2.4 g/dL (3.4-5.0); ALKALINE PHOSPHATASE 58 Units/L (46-116); ASPARTATE AMINO TRANSFERASE 17 Units/L (15-37); BLOOD UREA NITROGEN 21 mg/dL (7-18); CALCIUM 8.6 mg/dL (8.5-10.1); CARBON DIOXIDE 37.3 mmol/L (21-32); CHLORIDE 101 mmol/L (98-107); COR CA(FOR HYPOALB) 9.9 mg/dL (8.5-10.1); COR NA(FOR HYPERGLY) 140 mmol/L (136-145); CREATININE 0.62 mg/dL (0.55-1.02); SODIUM 139 mmol/L (136-145); TOTAL PROTEIN 5.8 g/dL (6.4-8.2); eGFR NON BLACK RACES > 60 (>60)
[2018-04-18 06:35] LABS: PLATELET MORPHOLOGY COMMENT NORMAL (NORMAL)
[2018-04-18] MEDS: PULMICORT NEB TX 0.5 MG NEB SCH (08:04)
[2018-04-18] MEDS ORDERED: NORVASC TAB 2.5 MG ONE (08:08)
[2018-04-18] MEDS: PROTONIX INJ 40 MG VIAL IVP SCH (08:38)
[2018-04-18] MEDS: NORVASC TAB 2.5 MG PO SCH (08:38)
[2018-04-18] MEDS: ROCEPHIN VIAL 1 GRAM IVP SCH (08:39)
[2018-04-18] MEDS: LEVAQUIN PREMIX IV 500 MG 500 MG/100 ML BAG IV SCH (08:39)
[2018-04-18 09:06] VITALS: BP 169/74
== END 2018-04-18 11:30 | disposition home or self-care (01) | DRG 192 ==
LOC: ER 08:24 → MED/SURG 11:02
PROVIDERS: ADMIT Internal Medicine; ATTEND Internal Medicine
DX: R94.31 Abnormal electrocardiogram [ECG] [EKG]; R53.1 Weakness; B96.89 Other specified bacterial agents as the cause of diseases classified elsewhere; I25.10 Atherosclerotic heart disease of native coronary artery without angina pectoris; R06.02 Shortness of breath; F41.8 Other specified anxiety disorders; J20.8 Acute bronchitis due to other specified organisms; R09.02 Hypoxemia; Z99.81 Dependence on supplemental oxygen; E11.65 Type 2 diabetes mellitus with hyperglycemia; R26.89 Other abnormalities of gait and mobility; R79.82 Elevated C-reactive protein (CRP); K73.9 Chronic hepatitis, unspecified; I50.9 Heart failure, unspecified; R06.03 Acute respiratory distress; J44.1 Chronic obstructive pulmonary disease with (acute) exacerbation
CPT/HCPCS: 36415; 36600; 71010; 71045; 80053; 80061; 81001; 82150; 82533; 82550; 82553; 82803; 83605; 83690; 83735; 84484; 85025; 86140; 87040; 87070; 87077; 87186; 87205; 93005; 93880; 94640; 94760; 96365; 96374; 96375; 97161; 99282; 99284; A4222; C9113; J0696; J1956; J2920; J2930; J7050; J7620; J7626

== ENCOUNTER 2018-05-17 12:30 | Inpatient (IN) ==
--- NOTE | 2018-05-17 14:08 | DR.GENAD ---
HPI - PCP Primary Care Physician: AVILA - Complaint/Symptoms Chief Complaint Doctors Comments: Patient is complaining of hurting all over with problems breating with cold, cough with white sputum production for the past 3-4 days getting progressively worst. She is having SOB and chest pain with leg and "kidney pain. States she has been having constipation and has to take something for her bowels to move. She took a breathing treatment last night but none today. She smokes but denies alcohol usage. states she is a patient of Dr. Romero. She is complaining of chest pain and problems digesting her food. Chief Complaint:: HURTING ALL OVER, MAINLY IN BACK WHERE KIDNEY. CAN'T BREATHE. HOME OXYGEN 2 LPM. - Nurses notes reviewed Nurses Notes Review: Yes - Source History Provided: Patient - Mode of Arrival Mode of Arrival: Wheelchair - Timing Onset of Chief Complaint: 05/16/18 Came on: Gradually - Duration Duration: Constant How lon Duration: Days - Location Location: xiphoid and epigastric pain - Severity Severity: Moderate - Modifying Factors Worsens:: nothing Improves:: nothing PMH - PMH Past Medical History: Yes Past Medical History: Coronary Artery Disease, Renal Disease, Anxiety, COPD, Kidney Stones, CHF Past Surgical History: Yes Surgical History: Other - Family History History of Family Medical Conditions: Yes Family Medical History: Cancer - Social History Does any household member use tobacco: No Alcohol Use: None Do you use any recreational Drugs:: No Lives With: Family Lives Where: Home - infectious screening In the last 2 months have you had wt loss of >10#?: NO Have you had fever, night sweats or hemotysis?: No Have you traveled outside the country in the last 6 months?: No Isolation: Standard ROS - Review of Systems Constitutional: No Symptoms Reported, Weakness, Loss of Appetite Eyes: No Symptoms Reported ENTM: No Symptoms Reported Respiratoy: No Symptoms Reported, Productive Cough, Short of Breath, Wheezing Cardiovascular: Chest Pain. negative: No Symptoms Reported, See HPI, Edema, Palpitations, Syncope, Cyanosis, Skin Mottling, Other Gastrointestinal/Abdominal: No Symptoms Reported, Abdominal Pain, Constipation. negative: See HPI, Diarrhea, Nausea, Vomiting, Food Intolerance, Other Genitourinary: No Symptoms Reported Neurological: No Symptoms Reported. negative: See HPI, Anxiety, Depressed, Emotional Problems, Headache, Numbness, Paresthesia, Pre-existing Deficit, Seizure, Tingling, Tremors, Weakness, Dizziness, Problems Walking, Speech Problem, Other Musculoskeletal: No Symptoms Reported, Back Pain Integumentary: No Symptoms Reported. negative: See HPI, Change in Color, Change in Hair/Nails, Dryness, Lesions, Lumps, Rash, Itching, Wound, Bruises, Juandice, Other Hematologic/Lymphatic: No Symptoms Reported. negative: See HPI, Anemia, Blood Clots, Easy Bleeding, Easy Bruising, Swollen Glands, Lymphadenopathy, Other Endocrine: No Symptoms Reported Psychiatric: No Symptoms Reported PE - General Limitations: No Limitations General Appearance: Alert, In Distress (mild) - Head Head Exam: Normal Inspection, Atraumatic, Normocephalic - Eyes Eye exam: Normal Appearance, PERRL, EOMI. negative: Scleral Icterus, Conjunctival Injection, Nystagmus, Miosis, Mydrasis, Periorbital Swelling, Periorbital Tenderness, Other - ENT ENT Exam: Normal Exam, Normal Oropharynx, Normal External Ear Exam, Mucous Membranes Moist, TM's Normal Bilaterally External Ear Exam: Normal External Inspection TM/Canal Exam: Bilateral Normal Nose Exam: Normal Nose Exam Mouth Exam: Normal Inspection Throat Exam: Normal Inspection. negative: Tonsillar Erythema, Tonsillomegaly, Tonsillar Exudate, R Peritonsillar Mass, L Peritonsillar Mass, Muffled Voice, Other - Neck Neck Exam: Normal Inspection, Full ROM, Trachea Midline - Chest Chest Inspection: Normal Inspection, Symmetric Chest Wall Rise - Respiratory Respiratory Exam: Prolonged Expiratory Phase Respiratory Exam: Bilateral Wheezing, Bilateral Decreased Breath Sounds - Cardiovascular Cardiovascular Exam: Regular Rate, Normal Rhythm, Normal Heart Sounds - Abdominal Exam Abdominal Exam: Normal Inspection, Normal Bowel Sounds, Soft, Tenderness (slight epigastric tenderness) Abdominal Tenderness: Epigastrium, Mild - Extremities Extremities Exam: Normal Inspection, Full ROM, Normal Capillary Refill. negative: Tenderness, Edema, Joint Swelling, Calf Tenderness, Other - Back Back Exam: Normal Inspection, Full ROM. negative: Tenderness, (R) CVA [place]ness, (L) CVA Tenderness, Muscle Spasm, Paraspinal Tenderness, Vertebral Tenderness, Rashes, (R) Sciatic Notch Tenderness, (L) Sciatic Notch Tendern, (R) Straight Leg Raise, (L) Straight Leg Raise, Other - Neurologic Neurological Exam: Alert, Oriented X3, CN II-XII Intact, Reflexes Normal. negative: Normal Gait (gait not tested) - Psychiatric Psychiatric Exam: Normal Affect, Normal Mood - Skin Skin Exam: Warm, Dry, Intact, Normal Color. negative: Rash, Cyanosis, Diaphoresis, Erythema, Pallor, Mottled, Other - Vital Signs Vitals: Temperature 98.4 F Pulse Rate [Apical] 81 Pulse Rate 95 Respiratory Rate 24 Blood Pressure [Left Arm] 118/58 Blood Pressure [Right Arm] 169/74 Blood Pressure 121/94 O2 Sat by Pulse Oximetry 90 Course - Reevaluation 1st: Improved - Consultation Called: 18:14 Call Returned: 18:14 (Dr. Casanova to admit) - Education/Counseling Education/Counseling: Patient, Family Educated On: Treatment, Diagnosis, Prognosis, Needs for Follow Up ROR - Labs Reviewed Laboratory Results Reviewed?: Yes (All labs and x-ray results reviewed and discussed with patient) Result Diagrams: 05/17/18 14:35 05/17/18 14:35 - XRAY XRAY Interpreted by: Radiologist (CXR:COPD, interstitial fibrosis, fibrotic scarring at the right apex more extensive.) - EKG Rate: 77 Bode: Normal Rhythm: NSR, ST Block: None Hypertrophy: None ST: Normal, Nonsp - Labs Reviewed Laboratory: WBC 7.1 X10^3/uL (3.6-10.0) 05/17/18 14:35 RBC 4.83 X10^6/uL (3.5-5.4) 05/17/18 14:35 Hgb 14.2 g/dL (12.0-16.0) 05/17/18 14:35 Hct 43.0 % (36.0-47.0) 05/17/18 14:35 MCV 89.0 fL (80.0-100.0) 05/17/18 14:35 MCH 29.4 pg (27.0-34.0) 05/17/18 14:35 MCHC 33.0 g/dL (33.0-35.0) 05/17/18 14:35 RDW 15.1 % (11.6-16.5) 05/17/18 14:35 Plt Count 172 X10^3/uL (150.0-450.0) 05/17/18 14:35 MPV 7.8 fL (7.4-11.0) 05/17/18 14:35 Neut % (Auto) 82.7 % (42.0-75.0) H 05/17/18 14:35 Lymph % (Auto) 3.6 % (21.0-51.0) L 05/17/18 14:35 [place] % (Auto) 12.7 % (0.0-13.0) 05/17/18 14:35 Eos % (Auto) 0.8 % (0.9-2.9) L 05/17/18 14:35 Baso % (Auto) 0.2 % (0.2-1.0) 05/17/18 14:35 Neut # (Auto) 5.9 x10^3/uL (2.2-4.8) H 05/17/18 14:35 Lymph # (Auto) 0.3 X10^3/uL (1.3-2.9) L 05/17/18 14:35 [place] # (Auto) 0.9 x10^3/uL (0.3-0.8) H 05/17/18 14:35 Eos # (Auto) 0.1 x10^3/uL (0.0-0.2) 05/17/18 14:35 Baso # (Auto) 0.0 X10^3/uL (0.0-0.1) 05/17/18 14:35 Absolute Nucleated RBC 0.0 /100WBC 05/17/18 14:35 INR Target Range - 05/17/18 14:35 INR 0.91 (0.8-1.3) 05/17/18 14:35 APTT 31.6 SECONDS (22.9-36.5) 05/17/18 14:35 PTT Comment - 05/17/18 14:35 D-Dimer < 100 ng/mL (0-400) 05/17/18 14:35 Sodium 137 mmol/L (136-145) 05/17/18 14:35 Corrected Sodium TNP 05/17/18 14:35 Potassium 4.6 mmol/L (3.5-5.1) 05/17/18 14:35 Chloride 94 mmol/L (98-107) L 05/17/18 14:35 Carbon Dioxide 36.9 mmol/L (21-32) H 05/17/18 14:35 BUN 13 mg/dL (7-18) 05/17/18 14:35 Creatinine 0.81 mg/dL (0.55-1.02) 05/17/18 14:35 Est GFR (MDRD) Af Amer > 60 (>60) 05/17/18 14:35 Est GFR (MDRD) Non-Af > 60 (>60) 05/17/18 14:35 Glucose 92 mg/dL (65-99) 05/17/18 14:35 Calcium 8.5 mg/dL (8.5-10.1) 05/17/18 14:35 Corrected Calcium TNP 05/17/18 14:35 Magnesium 1.7 mg/dL (1.7-2.9) 05/17/18 14:35 Total Bilirubin 0.60 mg/dL (0.2-1.0) 05/17/18 14:35 AST 44 Units/L (15-37) H 05/17/18 14:35 ALT 34 Units/L (12-78) 05/17/18 14:35 Alkaline Phosphatase 86 Units/L (46-116) 05/17/18 14:35 Creatine Kinase 40 Units/L (26-192) 05/17/18 14:35 CK-MB (CK-2) < 1.0 ng/mL (0-4.0) 05/17/18 14:35 CK/CKMB % Calc 2.5 % (<4) 05/17/18 14:35 Troponin I < 0.02 ng/mL (0-1.5) 05/17/18 14:35 Total Protein 7.1 g/dL (6.4-8.2) 05/17/18 14:35 Albumin 3.7 g/dL (3.4-5.0) 05/17/18 14:35 Globulin 3.4 g/dL (2.5-4.5) 05/17/18 14:35 Albumin/Globulin Ratio 1.1 Ratio (1.1-2.1) 05/17/18 14:35 Influenza Type A (PCR) Positive (NEGATIVE) A 05/17/18 14:20 Influenza Type B (PCR) Negative (NEGATIVE) 05/17/18 14:20 - Diagnosis Discharge Problem: COPD exacerbation, Idiopathic interstitial fibrosis, Influenza A, COPD (chronic obstructive pulmonary disease) with acute bronchitis - Discharge Plan Disposition: ADMITTED INPATIENT Condition: Stable - Follow ups/Referrals Follow ups/Referrals: ERICK ROMERO [Primary Care Provider] - 3 days - Instructions
[2018-05-17] MEDS ORDERED: ASPIRIN PO ONE (14:15)
[2018-05-17] MEDS ORDERED: SOLU-Medrol 125 MG VIAL IVP ONE (14:15)
[2018-05-17] MEDS ORDERED: DUONEB 0.5 MG/3 MG NEB ONE (14:15)
[2018-05-17] MEDS ORDERED: SOLU-Medrol 125 MG VIAL ONE (14:21)
[2018-05-17] MEDS ORDERED: ASPIRIN ONE (14:21)
[2018-05-17] MEDS ORDERED: DUONEB 0.5 MG/3 MG ONE (14:22)
[2018-05-17] MEDS: NS 1000 ML 1,000 ML IV SCH (14:38)
[2018-05-17 14:46] LABS: BASOPHILS % (AUTO) 0.2 % (0.2-1.0); EOSINOPHILS # (AUTO) 0.1 x10^3/uL (0.0-0.2); EOSINOPHILS % (AUTO) 0.8 % (0.9-2.9); HEMOGLOBIN 14.2 g/dL (12.0-16.0); LYMPHOCYTES # (AUTO) 0.3 X10^3/uL (1.3-2.9); LYMPHOCYTES % (AUTO) 3.6 % (21.0-51.0); MEAN CORPUSCULAR HEMOGLOBIN 29.4 pg (27.0-34.0); MEAN PLATELET VOLUME 7.8 fL (7.4-11.0); MONOCYTES # (AUTO) 0.9 x10^3/uL (0.3-0.8); MONOCYTES % (AUTO) 12.7 % (0.0-13.0); NEUTROPHILS # (AUTO) 5.9 x10^3/uL (2.2-4.8); NEUTROPHILS % (AUTO) 82.7 % (42.0-75.0); PLATELET COUNT 172 X10^3/uL (150.0-450.0); RED BLOOD COUNT 4.83 X10^6/uL (3.5-5.4); RED CELL DISTRIBUTION WIDTH 15.1 % (11.6-16.5); WHITE BLOOD COUNT 7.1 X10^3/uL (3.6-10.0)
[2018-05-17 14:59] LABS: BLOOD UREA NITROGEN 13 mg/dL (7-18); CALCIUM 8.5 mg/dL (8.5-10.1); CARBON DIOXIDE 36.9 mmol/L (21-32); CHLORIDE 94 mmol/L (98-107); CREATININE 0.81 mg/dL (0.55-1.02); SODIUM 137 mmol/L (136-145); eGFR NON BLACK RACES > 60 (>60)
[2018-05-17 15:32] LABS: ALANINE AMINOTRANSFERASE 34 Units/L (12-78); ALBUMIN 3.7 g/dL (3.4-5.0); ALKALINE PHOSPHATASE 86 Units/L (46-116); ASPARTATE AMINO TRANSFERASE 44 Units/L (15-37); CREATINE KINASE 40 Units/L (26-192); CREATINE KINASE MB < 1.0 ng/mL (0-4.0); MAGNESIUM 1.7 mg/dL (1.7-2.9); TOTAL PROTEIN 7.1 g/dL (6.4-8.2); TROPONIN I < 0.02 ng/mL (0-1.5)
--- NOTE | 2018-05-17 15:32 | RAD ---
Examination: Chest, two views History: Chest pain Comparison 04/17/2018 Findings: Continued normal heart size, pulmonary hyper expansion, chronic interstitial disease. Heart size normal. No pneumothorax or pleural fluid. Impression: Continued findings of COPD, interstitial fibrosis. Apparent fibrotic scarring at the right apex is somewhat more extensive than on previous examination of February,. Because of this, the possibility of an active process in the right apex should be considered. Follow-up imaging recommended. Reported By:
[2018-05-17 15:36] LABS: CKMB % 2.5 % (<4)
[2018-05-17] MEDS: TAMIFLU PO SCH ×2 (18:24→23:18)
[2018-05-17] MEDS: LEVAQUIN PREMIX IV 500 MG 500 MG/100 ML BAG IV SCH (18:27)
[2018-05-17 19:49] VITALS: BMI 17.6
[2018-05-17] MEDS: BROVANA IN SCH (21:43)
[2018-05-17] MEDS: PULMICORT NEB TX 0.5 MG NEB SCH (21:43)
[2018-05-17] MEDS: DUONEB 0.5 MG/3 MG NEB SCH (21:43)
[2018-05-17] MEDS ORDERED: ZOFRAN INJ 4 MG VIAL IVP PRN (22:25)
[2018-05-17] MEDS ORDERED: ZOFRAN INJ 4 MG VIAL ONE (22:39)
[2018-05-17 22:43] LABS: BILIRUBIN,URINE NEGATIVE (NEGATIVE); BLOOD/HEMOGLOBIN,URINE NEGATIVE (NEGATIVE); GLUCOSE, URINE NEGATIVE (NEGATIVE); KETONES,URINE 2+ (NEGATIVE); LEUKOCYTE ESTERASE ,URINE NEGATIVE (NEGATIVE); NITRITES,URINE NEGATIVE (NEGATIVE); PROTEIN,URINE 3+ (NEGATIVE); UROBILINOGEN,URINE NORMAL (NORMAL)
[2018-05-17 22:56] LABS: APPEARANCE,URINE CLEAR (CLEAR); COLOR,URINE DARK YELLOW (YELLOW); RBC,URINE 0-2 /HPF (NONE SEEN)
[2018-05-17 22:57] LABS: BACTERIA,URINE NEGATIVE /HPF (NEGATIVE); HYALINE CASTS, URINE RARE /LPF (NEGATIVE); SQUAMOUS EPITHELIAL CELL,UR RARE /HPF (NEGATIVE)
[2018-05-18] MEDS: DUONEB 0.5 MG/3 MG NEB SCH ×6 (01:35→21:07)
[2018-05-18] MEDS ORDERED: PHENERGAN INJ 25 MG ONE (02:19)
[2018-05-18] MEDS: PHENERGAN INJ 25 MG IV PRN ×2 (02:20→10:00)
[2018-05-18 06:38] LABS: CHLORIDE 98 mmol/L (98-107); SODIUM 137 mmol/L (136-145)
[2018-05-18 06:46] LABS: BASOPHILS % (AUTO) 0.1 % (0.2-1.0); HEMATOCRIT 41.1 % (36.0-47.0); HEMOGLOBIN 13.2 g/dL (12.0-16.0); LYMPHOCYTES # (AUTO) 0.1 X10^3/uL (1.3-2.9); LYMPHOCYTES % (AUTO) 2.5 % (21.0-51.0); MEAN CORPUSCULAR HEMOGLOBIN 29.3 pg (27.0-34.0); MEAN CORPUSCULAR HGB CONC 32.2 g/dL (33.0-35.0); MEAN CORPUSCULAR VOLUME 90.9 fL (80.0-100.0); MEAN PLATELET VOLUME 8.1 fL (7.4-11.0); MONOCYTES # (AUTO) 0.3 x10^3/uL (0.3-0.8); NEUTROPHILS # (AUTO) 4.8 x10^3/uL (2.2-4.8); NEUTROPHILS % (AUTO) 92.4 % (42.0-75.0); PLATELET COUNT 130 X10^3/uL (150.0-450.0); RED BLOOD COUNT 4.52 X10^6/uL (3.5-5.4); RED CELL DISTRIBUTION WIDTH 15.2 % (11.6-16.5); WHITE BLOOD COUNT 5.2 X10^3/uL (3.6-10.0)
[2018-05-18 06:47] LABS: BLOOD UREA NITROGEN 20 mg/dL (7-18); CALCIUM 8.3 mg/dL (8.5-10.1); CARBON DIOXIDE 37.9 mmol/L (21-32); COR NA(FOR HYPERGLY) 138 mmol/L (136-145); CREATININE 1.04 mg/dL (0.55-1.02); eGFR NON BLACK RACES 55 (>60)
[2018-05-18] MEDS: NS 1000 ML 1,000 ML IV SCH ×2 (06:51→21:44)
[2018-05-18 07:11] LABS: BAND NEUTROPHILS % 26 % (0-10); PLATELET MORPHOLOGY COMMENT NORMAL (NORMAL)
[2018-05-18] MEDS: PULMICORT NEB TX 0.5 MG NEB SCH ×2 (09:16→21:07)
[2018-05-18] MEDS: BROVANA IN SCH ×2 (09:16→21:07)
[2018-05-18] MEDS ORDERED: NS 1000 ML 1,000 ML IV ONE (09:47)
[2018-05-18] MEDS: LEVAQUIN PREMIX IV 500 MG 500 MG/100 ML BAG IV SCH (10:08)
[2018-05-18] MEDS: SOLU-Medrol 40 MG VIAL IVP SCH ×2 (10:09→16:35)
[2018-05-18] MEDS: TAMIFLU PO SCH ×2 (10:09→21:44)
[2018-05-18] MEDS: ZITHROMAX INJ 500 MG VIAL 250 MG in NS 250 ML IV 250 ML IV SCH (10:09)
[2018-05-18] MEDS: XANAX PO PRN (11:35)
[2018-05-18 11:42] LABS: AMORPHOUS SEDIMENT,UR 2+ /HPF (NEGATIVE); APPEARANCE,URINE HAZY (CLEAR); BACTERIA,URINE NEGATIVE /HPF (NEGATIVE); BILIRUBIN,URINE NEGATIVE (NEGATIVE); BLOOD/HEMOGLOBIN,URINE NEGATIVE (NEGATIVE); COLOR,URINE YELLOW (YELLOW); GLUCOSE, URINE NEGATIVE (NEGATIVE); KETONES,URINE NEGATIVE (NEGATIVE); LEUKOCYTE ESTERASE ,URINE NEGATIVE (NEGATIVE); NITRITES,URINE NEGATIVE (NEGATIVE); PROTEIN,URINE 3+ (NEGATIVE); RBC,URINE 0-2 /HPF (NONE SEEN); SQUAMOUS EPITHELIAL CELL,UR FEW /HPF (NEGATIVE); UROBILINOGEN,URINE NORMAL (NORMAL)
--- NOTE | 2018-05-18 20:54 | DR.H&P ---
H&P - History & Physical for Day of: H&P Date: 05/17/18 - Chief Complaint Chief Complaint: COUGH, SOB, GENERALIZED ACHING - History of Present Illness History of Present Illness: IS A 72 YEAR OLD PATIENT OF WHO PRESENTED TO THE EMERGENCY ROOM WITH COMPLAINTS OF ACHING ALL OVER, A PRODUCTI E COUGH, AND SHORTNESS OF BREATH. SYMPTOMS REPORTEDLY STARTED THREE DAYS AGO AND HAS PROGRESSIVELY GOTTEN WORSE. SHE ALSO REPORTS CONSTIPATION. SHE REPORTS TAKING SEVERAL BREATHING TREATMENTS WITHOUT IMPROVEMENT WELL UTILIZING HER HOME 02 AT 2L/MIN. ON ARRIVAL TO THE ER, VITALS WERE 98.4-101-20-80%NC-121/94. LABS WERE OBTAINED. ABNORMAL LAB VALUES INCLUDE THE FOLLOWING: CHLORIDE 94, CARBON DIOXIDE 36.9, AST 44. URINALYSIS UNREMARKABLE. INFLUENZA A POSITIVE. BLOOD CULTURES OBTAINED AND ARE PENDING. A CHEST XRAY WAS OBTAINED AND REVEALED: Continued findings of COPD, interstitial fibrosis. Apparent fibrotic scarring at the right apex is somewhat more extensive than on previous examination of February,. Because of this, the possibility of an active process in the right apex should be considered. Follow-up imaging recommended. EKG REVEALED SINUS RHYTHM WITH HR 95. SHE WAS GIVEN SOLU-MEDROL 125MG IV X 1, DUONEB X 1, AND ASPIRIN 325MG PO X 1. SHE WAS ADMITTED TO THE HOSPTIAL FOR FURTHER EVALUATION AND TREATMENT OF INFLUENZA A, COPD, HYPOXEMIA, AND ACUTE BRONCHITIS. SHE WAS STARTED ON LEVAQUIN AND AZITHROMYCIN IV WELL RESPIRATORY TREATMENTS AND SUPPLEMENTAL OXYGEN. NORMAL SALINE AT 125ML/HR STARTED. WE PLAN TO FOLLOW UP WITH AM LABS AND CHEST XRAY AND CONTINUE TO MONITOR. - Past Medical History Past Medical History: Coronary Artery Disease, Renal Disease, Anxiety, COPD, Kidney Stones, CHF Additional Medical History: Blind (L) Eye, Cataracts, Emphysema, Hepatits C, Osteoporosis - Past Surgical History Surgical History: Other Additional Surgical History: Nephrectomy, Eye Surgery - Family History Family Medical History: Diabetes Mellitus - Social History Does patient currently use any type of tobacco product: No Have you used tobacco products in the last 12 months: No Type of Tobacco Use: None Does any household member use tobacco: No Alcohol Use: None Drug Use: None - Medications Home Medications: No Known Drug Allergies Allergy (Verified 04/15/18 08:30) - Review of Systems Constitutional: See HPI, Chills, Weakness, Malaise Eyes: No Symptoms Reported ENT: No Symptoms Reported Respiratory: See HPI, Cough, Shortness of Breath, Sputum Cardiovascular: No Symptoms Reported Gastrointestinal: No Symptoms Reported Genitourinary: No Symptoms Reported Musculoskeletal: See HPI (GENERALIZED ACHING ) Skin: No Symptoms Reported Neurological: Weakness - Physical Exam Vital Signs: Temperature 98.1 F Pulse Rate [Apical] 89 Pulse Rate 83 Respiratory Rate 20 Blood Pressure [Left Arm] 107/53 Blood Pressure [Right Arm] 169/74 Blood Pressure 121/94 O2 Sat by Pulse Oximetry 100 Oriented: Normal Eyes: Normal Ear: Normal Nose: Normal Throat: Normal Respiratory: Diminished Throughout Cardiovascular: Tachycardia : Normal Auscultation: Bowel Sounds: Normal Palpation: Normal Tenderness: Normal Skin: Normal Musculoskeletal: Back:Lumbar, Tender Psychiatric: Normal Mood Description: Calm Affect: Normal Speech Pattern: Clear - Assessment/Plan (1) COPD exacerbation Status: Acute Plan: ADMIT, SUPPLEMENTAL OXYGEN, IV ANTIBIOTICS, RESPIRATORY TREATMENTS, CONTINUE TO MONITOR (2) Influenza A Status: Acute Plan: TAMIFLU 75MG PO BID (3) Acute bronchitis Qualifiers: Bronchitis organism: unspecified organism Qualified Code(s): J20.9 - Acute bronchitis, unspecified Status: Acute Plan: IV ANTIBIOTICS, RESPIRATORY TREATMENTS, SUPPLEMENTAL OXYGEN, CONTINUE TO MONITOR (4) Hypoxia Status: Acute Plan: RESPIRATORY TREATMENTS, SUPPLEMENTAL OXYGEN, CONTINUE TO MONITOR - Allergies Allergies/Adverse Reactions: Allergies Allergy/AdvReac Type Severity Reaction Status Date / Time No Known Drug Allergies Allergy Verified 04/15/18 08:30
[2018-05-18 22:00] LABS: ABG PCO2 > 115.0 mmHg (35.0-45.0)
[2018-05-18 22:01] LABS: ABG ALLEN TEST POS
[2018-05-19 00:39] LABS: ABG BASE EXCESS 8.2 mmol/L (-2.0-2.0)
[2018-05-19 00:41] LABS: ABG HCO3 40.1 mmol/L (22-26)
[2018-05-19] MEDS: SOLU-Medrol 40 MG VIAL IVP SCH ×3 (01:00→16:23)
[2018-05-19] MEDS: DUONEB 0.5 MG/3 MG NEB SCH ×6 (01:09→21:17)
[2018-05-19 03:08] LABS: ABG BASE EXCESS 6.9 mmol/L (-2.0-2.0)
[2018-05-19 05:56] LABS: ABG BASE EXCESS 7.9 mmol/L (-2.0-2.0)
[2018-05-19 05:57] LABS: ABG HCO3 38.9 mmol/L (22-26)
[2018-05-19 06:45] LABS: ALANINE AMINOTRANSFERASE 29 Units/L (12-78); ALBUMIN 2.7 g/dL (3.4-5.0); ALKALINE PHOSPHATASE 62 Units/L (46-116); ASPARTATE AMINO TRANSFERASE 54 Units/L (15-37); BLOOD UREA NITROGEN 29 mg/dL (7-18); CALCIUM 8.1 mg/dL (8.5-10.1); CARBON DIOXIDE 33.6 mmol/L (21-32); CHLORIDE 102 mmol/L (98-107); COR CA(FOR HYPOALB) 9.1 mg/dL (8.5-10.1); SODIUM 137 mmol/L (136-145); TOTAL PROTEIN 6.1 g/dL (6.4-8.2); eGFR NON BLACK RACES > 60 (>60)
[2018-05-19 06:49] LABS: BASOPHILS % (AUTO) 0.4 % (0.2-1.0); EOSINOPHILS % (AUTO) 0.3 % (0.9-2.9); HEMATOCRIT 39.4 % (36.0-47.0); HEMOGLOBIN 12.7 g/dL (12.0-16.0); LYMPHOCYTES # (AUTO) 0.2 X10^3/uL (1.3-2.9); LYMPHOCYTES % (AUTO) 2.5 % (21.0-51.0); MEAN CORPUSCULAR HEMOGLOBIN 29.2 pg (27.0-34.0); MEAN CORPUSCULAR HGB CONC 32.2 g/dL (33.0-35.0); MEAN CORPUSCULAR VOLUME 90.6 fL (80.0-100.0); MEAN PLATELET VOLUME 9.1 fL (7.4-11.0); MONOCYTES # (AUTO) 0.4 x10^3/uL (0.3-0.8); MONOCYTES % (AUTO) 4.9 % (0.0-13.0); NEUTROPHILS # (AUTO) 7.1 x10^3/uL (2.2-4.8); NEUTROPHILS % (AUTO) 91.9 % (42.0-75.0); PLATELET COUNT 152 X10^3/uL (150.0-450.0); RED BLOOD COUNT 4.35 X10^6/uL (3.5-5.4); RED CELL DISTRIBUTION WIDTH 15.1 % (11.6-16.5); WHITE BLOOD COUNT 7.7 X10^3/uL (3.6-10.0)
[2018-05-19 07:24] LABS: BAND NEUTROPHILS % 2 % (0-10); PLATELET MORPHOLOGY COMMENT NORMAL (NORMAL)
[2018-05-19] MEDS: NS 1000 ML 1,000 ML IV SCH (08:50)
[2018-05-19] MEDS: LEVAQUIN PREMIX IV 500 MG 500 MG/100 ML BAG IV SCH (08:51)
[2018-05-19] MEDS: TAMIFLU PO SCH ×2 (08:51→20:15)
[2018-05-19] MEDS: BROVANA IN SCH ×2 (09:36→21:17)
[2018-05-19] MEDS: PULMICORT NEB TX 0.5 MG NEB SCH ×2 (09:36→21:18)
[2018-05-19] MEDS: ZITHROMAX INJ 500 MG VIAL 250 MG in NS 250 ML IV 250 ML IV SCH (10:03)
[2018-05-19 11:23] LABS: BLOOD UREA NITROGEN 29 mg/dL (7-18); CALCIUM 8.2 mg/dL (8.5-10.1); CARBON DIOXIDE 33.1 mmol/L (21-32); CHLORIDE 101 mmol/L (98-107); SODIUM 136 mmol/L (136-145); eGFR NON BLACK RACES > 60 (>60)
[2018-05-19] MEDS ORDERED: KAYEXALATE SUSP PO ONE (11:27)
[2018-05-19] MEDS ORDERED: COLACE CAP 100 MG PO ONE (15:35)
[2018-05-19] MEDS: COLACE CAP 100 MG PO PRN (15:37)
--- NOTE | 2018-05-19 18:31 | PCM.PROG ---
Progress Note - Progress Note for Day of Date of Exam: 05/19/18 - Subjective Subjective: 72 WF ER ADMISSION WITH RESPIRATORY DISTRESS, PT HAS CO2 92 THIS AM. PT ASKED TO BE OFF BIPAP FOR A WHILE TO REST. PT HAS PMH OF CHRONIC RESP FAILURE. PT IS CURRENTLY ON IV ATBX, RESP THERAPY, IV SOLU MEDROL. PT K 5.8 THIS AM, ENCOURAGED ORAL HYDRATION AND KAYEXALATE PO X 1 DOSE WITH REPEAT AM K AND CONTINUOUS CARIDAC MONITORING - Past Medical Family Social History Past Med/Fam/Surg Hx: No changes since H&P Allergies: Allergies No Known Drug Allergies Allergy (Verified 04/15/18 08:30) - Review of Systems ROS: No change since H&P - Vital Signs and I&O's Vital Signs: Temperature 98.2 F Pulse Rate [Apical] 99 Pulse Rate 74 Respiratory Rate 20 Blood Pressure [Left Arm] 128/60 Blood Pressure [Right Arm] 169/74 Blood Pressure 102/51 O2 Sat by Pulse Oximetry 94 Intake and Output: Intake & Output 05/17/18 05/18/18 05/19/18 05/20/18 11:59 11:59 11:59 11:59 Intake Total 869 / 869 2875 / 2875 1100 / 1100 Output Total 400 / 400 900 / 900 275 / 275 Balance 469 / 469 1974 825 / 825 - Physical Exam Oriented: Normal Eyes: Normal Ear: Normal Nose: Normal Throat: Normal Respiratory: Diminished, Wheezes Cardiovascular: Tachycardia : Normal Auscultation: Bowel Sounds: Normal Tenderness: Normal Skin: Normal Musculoskeletal: Back:Lumbar, Tender Psychiatric: Normal Mood Description: Calm Affect: Normal Speech Pattern: Clear, Appropriate - Laboratory and Diagnostics Result Diagrams: 05/19/18 06:09 05/19/18 10:55 Labs: 05/17/18 17:37 Blood Blood Culture - Preliminary 05/17/18 17:32 Blood Blood Culture - Preliminary Laboratory WBC 7.7 X10^3/uL (3.6-10.0) 05/19/18 06:09 RBC 4.35 X10^6/uL (3.5-5.4) 05/19/18 06:09 Hgb 12.7 g/dL (12.0-16.0) 05/19/18 06:09 Hct 39.4 % (36.0-47.0) 05/19/18 06:09 MCV 90.6 fL (80.0-100.0) 05/19/18 06:09 MCH 29.2 pg (27.0-34.0) 05/19/18 06:09 MCHC 32.2 g/dL (33.0-35.0) L 05/19/18 06:09 RDW 15.1 % (11.6-16.5) 05/19/18 06:09 Plt Count 152 X10^3/uL (150.0-450.0) 05/19/18 06:09 Plt Count Comment Adequate (ADEQUATE) 05/19/18 06:09 MPV 9.1 fL (7.4-11.0) 05/19/18 06:09 Neut % (Auto) 91.9 % (42.0-75.0) H 05/19/18 06:09 Lymph % (Auto) 2.5 % (21.0-51.0) L 05/19/18 06:09 [place] % (Auto) 4.9 % (0.0-13.0) 05/19/18 06:09 Eos % (Auto) 0.3 % (0.9-2.9) L 05/19/18 06:09 Baso % (Auto) 0.4 % (0.2-1.0) 05/19/18 06:09 Neut # (Auto) 7.1 x10^3/uL (2.2-4.8) H 05/19/18 06:09 Lymph # (Auto) 0.2 X10^3/uL (1.3-2.9) L 05/19/18 06:09 [place] # (Auto) 0.4 x10^3/uL (0.3-0.8) 05/19/18 06:09 Eos # (Auto) 0.0 x10^3/uL (0.0-0.2) 05/19/18 06:09 Baso # (Auto) 0.0 X10^3/uL (0.0-0.1) 05/19/18 06:09 Absolute Nucleated RBC 0.1 /100WBC 05/19/18 06:09 Total Counted 100 05/19/18 06:09 Neutrophils % (Manual) 82 % (39-76) H 05/19/18 06:09 Band Neutrophils % 2 % (0-10) 05/19/18 06:09 Lymphocytes % (Manual) 8 % (13-43) L 05/19/18 06:09 Monocytes % (Manual) 8 % (4-9) 05/19/18 06:09 Plt Morphology Comment Normal (NORMAL) 05/19/18 06:09 RBC Morphology Normal (NORMAL) 05/19/18 06:09 INR Target Range - 05/17/18 14:35 INR 0.91 (0.8-1.3) 05/17/18 14:35 APTT 31.6 SECONDS (22.9-36.5) 05/17/18 14:35 PTT Comment - 05/17/18 14:35 D-Dimer < 100 ng/mL (0-400) 05/17/18 14:35 Sample Site Lbra 05/19/18 05:52 ABG pH 7.220 (7.35-7.45) L 05/19/18 05:52 ABG pCO2 95.0 mmHg (35.0-45.0) H* 05/19/18 05:52 ABG pO2 74.0 mmHg (80.0-100.0) L 05/19/18 05:52 ABG HCO3 38.9 mmol/L (22-26) H* 05/19/18 05:52 ABG O2 Saturation 91.0 % (90-100) 05/19/18 05:52 ABG Base Excess 7.9 mmol/L (-2.0-2.0) H 05/19/18 05:52 Ramin Test Na 05/19/18 05:52 A-a Gradient 92.0 mmHg 05/19/18 05:52 FiO2 40.0 05/19/18 05:52 Blood Gas Comments Lizandro abg well-mtf 05/19/18 05:52 Sodium 136 mmol/L (136-145) 05/19/18 10:55 Corrected Sodium TNP 05/19/18 10:55 Potassium 5.4 mmol/L (3.5-5.1) H 05/19/18 10:55 Chloride 101 mmol/L (98-107) 05/19/18 10:55 Carbon Dioxide 33.1 mmol/L (21-32) H 05/19/18 10:55 BUN 29 mg/dL (7-18) H 05/19/18 10:55 Creatinine 0.80 mg/dL (0.55-1.02) 05/19/18 10:55 Est GFR (MDRD) Af Amer > 60 (>60) 05/19/18 10:55 Est GFR (MDRD) Non-Af > 60 (>60) 05/19/18 10:55 Glucose 106 mg/dL (65-99) H 05/19/18 10:55 Lactic Acid 0.9 mmol/L (0.4-2.0) 05/17/18 17:32 Calcium 8.2 mg/dL (8.5-10.1) L 05/19/18 10:55 Corrected Calcium 9.1 mg/dL (8.5-10.1) 05/19/18 06:09 Magnesium 1.7 mg/dL (1.7-2.9) 05/17/18 14:35 Total Bilirubin 0.30 mg/dL (0.2-1.0) 05/19/18 06:09 AST 54 Units/L (15-37) H 05/19/18 06:09 ALT 29 Units/L (12-78) 05/19/18 06:09 Alkaline Phosphatase 62 Units/L (46-116) 05/19/18 06:09 Creatine Kinase 40 Units/L (26-192) 05/17/18 14:35 CK-MB (CK-2) < 1.0 ng/mL (0-4.0) 05/17/18 14:35 CK/CKMB % Calc 2.5 % (<4) 05/17/18 14:35 Troponin I < 0.02 ng/mL (0-1.5) 05/17/18 14:35 Total Protein 6.1 g/dL (6.4-8.2) L 05/19/18 06:09 Albumin 2.7 g/dL (3.4-5.0) L 05/19/18 06:09 Globulin 3.4 g/dL (2.5-4.5) 05/19/18 06:09 Albumin/Globulin Ratio 0.8 Ratio (1.1-2.1) L 05/19/18 06:09 Specimen Type Catherized urine 05/18/18 11:02 Urine Color Yellow (YELLOW) 05/18/18 11:02 Urine Appearance Hazy (CLEAR) 05/18/18 11:02 Urine pH 5.0 (5.0 - 8.0) 05/18/18 11:02 Ur Specific [place] 1.025 (1.000-1.030) 05/18/18 11:02 Urine Protein 3+ (NEGATIVE) 05/18/18 11:02 Urine Glucose (UA) Negative (NEGATIVE) 05/18/18 11:02 Urine Ketones Negative (NEGATIVE) 05/18/18 11:02 Urine Occult Blood Negative (NEGATIVE) 05/18/18 11:02 Urine Nitrite Negative (NEGATIVE) 05/18/18 11:02 Urine Bilirubin Negative (NEGATIVE) 05/18/18 11:02 Urine Urobilinogen Normal (NORMAL) 05/18/18 11:02 Ur Leukocyte Esterase Negative (NEGATIVE) 05/18/18 11:02 Urine RBC 0-2 /HPF (NONE SEEN) 05/18/18 11:02 Urine WBC 0-2 /HPF (NONE SEEN) 05/18/18 11:02 Ur Squamous Epith Cells Few /HPF (NEGATIVE) 05/18/18 11:02 Amorphous Sediment 2+ /HPF (NEGATIVE) 05/18/18 11:02 Urine Bacteria Negative /HPF (NEGATIVE) 05/18/18 11:02 Hyaline Casts Rare /LPF (NEGATIVE) 05/17/18 22:30 Ur Culture Indicated? No/not indicated 05/18/18 11:02 Influenza Type A (PCR) Positive (NEGATIVE) A 05/17/18 14:20 Influenza Type B (PCR) Negative (NEGATIVE) 05/17/18 14:20 - Plan (1) Acute respiratory distress Status: Acute Plan: CONTINUE RESP THERAPY, IV ATBX. AM ABG, AM CXR, SUPPLEMENTAL O2. STRICT I & OS. BP CONTROL, BIPAP PRN (2) Hyperkalemia Status: Acute (3) CAD (coronary artery disease) Status: Chronic (4) CHF (congestive heart failure) Status: Chronic (5) Anxiety Status: Chronic (6) COPD (chronic obstructive pulmonary disease) with acute bronchitis Status: Acute (7) Hypoxia Status: Acute Plan: RESPIRATORY TREATMENTS, SUPPLEMENTAL OXYGEN, CONTINUE TO MONITOR
[2018-05-19] MEDS ORDERED: SALINE 3% 15 ML NEB TX NEB ONE (19:31)
[2018-05-19] MEDS: XANAX PO PRN (20:15)
[2018-05-20] MEDS: DUONEB 0.5 MG/3 MG NEB SCH ×6 (01:01→21:07)
[2018-05-20] MEDS: SOLU-Medrol 40 MG VIAL IVP SCH ×3 (02:00→16:13)
[2018-05-20] MEDS: NS 1000 ML 1,000 ML IV SCH ×3 (02:42→16:26)
[2018-05-20 06:19] LABS: BASOPHILS % (AUTO) 0.1 % (0.2-1.0); HEMATOCRIT 39.1 % (36.0-47.0); HEMOGLOBIN 12.8 g/dL (12.0-16.0); LYMPHOCYTES # (AUTO) 0.2 X10^3/uL (1.3-2.9); LYMPHOCYTES % (AUTO) 3.3 % (21.0-51.0); MEAN CORPUSCULAR HEMOGLOBIN 29.3 pg (27.0-34.0); MEAN CORPUSCULAR HGB CONC 32.6 g/dL (33.0-35.0); MEAN CORPUSCULAR VOLUME 89.8 fL (80.0-100.0); MEAN PLATELET VOLUME 8.3 fL (7.4-11.0); MONOCYTES # (AUTO) 0.2 x10^3/uL (0.3-0.8); MONOCYTES % (AUTO) 3.9 % (0.0-13.0); NEUTROPHILS # (AUTO) 5.8 x10^3/uL (2.2-4.8); NEUTROPHILS % (AUTO) 92.7 % (42.0-75.0); PLATELET COUNT 128 X10^3/uL (150.0-450.0); RED BLOOD COUNT 4.35 X10^6/uL (3.5-5.4); RED CELL DISTRIBUTION WIDTH 15.5 % (11.6-16.5); WHITE BLOOD COUNT 6.3 X10^3/uL (3.6-10.0)
[2018-05-20 06:44] LABS: ALBUMIN 2.7 g/dL (3.4-5.0); BLOOD UREA NITROGEN 29 mg/dL (7-18); CALCIUM 8.2 mg/dL (8.5-10.1); COR CA(FOR HYPOALB) 9.2 mg/dL (8.5-10.1); COR NA(FOR HYPERGLY) 141 mmol/L (136-145); CREATININE 0.66 mg/dL (0.55-1.02); SODIUM 140 mmol/L (136-145); eGFR NON BLACK RACES > 60 (>60)
[2018-05-20 06:51] LABS: PLATELET MORPHOLOGY COMMENT NORMAL (NORMAL)
[2018-05-20 07:13] LABS: ALANINE AMINOTRANSFERASE 26 Units/L (12-78); ALKALINE PHOSPHATASE 54 Units/L (46-116); ASPARTATE AMINO TRANSFERASE 37 Units/L (15-37); CARBON DIOXIDE 30.6 mmol/L (21-32); CHLORIDE 102 mmol/L (98-107); TOTAL PROTEIN 5.8 g/dL (6.4-8.2)
[2018-05-20] MEDS: BROVANA IN SCH ×2 (08:12→21:07)
[2018-05-20] MEDS: PULMICORT NEB TX 0.5 MG NEB SCH ×2 (08:13→21:07)
[2018-05-20 08:30] LABS: ABG BASE EXCESS 8.1 mmol/L (-2.0-2.0)
[2018-05-20 08:32] LABS: ABG ALLEN TEST POS; ABG HCO3 37.6 mmol/L (22-26)
[2018-05-20] MEDS: TAMIFLU PO SCH ×2 (08:33→20:07)
[2018-05-20] MEDS: COLACE CAP 100 MG PO PRN ×2 (08:33→19:45)
[2018-05-20] MEDS: LEVAQUIN PREMIX IV 500 MG 500 MG/100 ML BAG IV SCH (08:33)
[2018-05-20] MEDS: MILK OF MAGNESIA PO SCH ×2 (08:33→19:45)
[2018-05-20] MEDS: ZITHROMAX INJ 500 MG VIAL 250 MG in NS 250 ML IV 250 ML IV SCH (09:39)
[2018-05-20] MEDS: XANAX PO PRN ×2 (10:41→19:45)
[2018-05-21] MEDS: SOLU-Medrol 40 MG VIAL IVP SCH ×4 (00:17→22:48)
[2018-05-21] MEDS: DUONEB 0.5 MG/3 MG NEB SCH ×6 (01:29→20:20)
[2018-05-21] MEDS ORDERED: ROBITUSSIN DM ONE (02:56)
[2018-05-21] MEDS ORDERED: TUSSIONEX PENNKINETIC SUSP ONE (02:57)
[2018-05-21] MEDS: TUSSIONEX PENNKINETIC SUSP PO PRN ×2 (03:05→08:15)
[2018-05-21] MEDS: ROBITUSSIN DM PO PRN ×3 (03:05→19:57)
[2018-05-21] MEDS: NS 1000 ML 1,000 ML IV SCH ×3 (05:01→20:06)
[2018-05-21 06:15] LABS: BASOPHILS % (AUTO) 0.3 % (0.2-1.0); HEMATOCRIT 36.8 % (36.0-47.0); HEMOGLOBIN 11.9 g/dL (12.0-16.0); LYMPHOCYTES # (AUTO) 0.2 X10^3/uL (1.3-2.9); LYMPHOCYTES % (AUTO) 2.8 % (21.0-51.0); MEAN CORPUSCULAR HEMOGLOBIN 29.2 pg (27.0-34.0); MEAN CORPUSCULAR HGB CONC 32.4 g/dL (33.0-35.0); MEAN CORPUSCULAR VOLUME 90.1 fL (80.0-100.0); MEAN PLATELET VOLUME 8.2 fL (7.4-11.0); MONOCYTES # (AUTO) 0.4 x10^3/uL (0.3-0.8); MONOCYTES % (AUTO) 5.3 % (0.0-13.0); NEUTROPHILS # (AUTO) 6.4 x10^3/uL (2.2-4.8); NEUTROPHILS % (AUTO) 91.6 % (42.0-75.0); PLATELET COUNT 141 X10^3/uL (150.0-450.0); RED BLOOD COUNT 4.08 X10^6/uL (3.5-5.4); RED CELL DISTRIBUTION WIDTH 15.1 % (11.6-16.5)
[2018-05-21 06:26] LABS: ABG BASE EXCESS 11.5 mmol/L (-2.0-2.0)
[2018-05-21 06:30] LABS: ABG HCO3 41.3 mmol/L (22-26)
[2018-05-21 06:37] LABS: ALANINE AMINOTRANSFERASE 23 Units/L (12-78); ALBUMIN 2.5 g/dL (3.4-5.0); ALKALINE PHOSPHATASE 50 Units/L (46-116); ASPARTATE AMINO TRANSFERASE 25 Units/L (15-37); BLOOD UREA NITROGEN 26 mg/dL (7-18); CALCIUM 7.9 mg/dL (8.5-10.1); CARBON DIOXIDE 37.2 mmol/L (21-32); CHLORIDE 106 mmol/L (98-107); COR CA(FOR HYPOALB) 9.1 mg/dL (8.5-10.1); COR NA(FOR HYPERGLY) 144 mmol/L (136-145); CREATININE 0.63 mg/dL (0.55-1.02); SODIUM 143 mmol/L (136-145); TOTAL PROTEIN 5.3 g/dL (6.4-8.2); eGFR NON BLACK RACES > 60 (>60)
[2018-05-21 06:49] LABS: PLATELET MORPHOLOGY COMMENT NORMAL (NORMAL)
--- NOTE | 2018-05-21 06:58 | RAD ---
HISTORY: Shortness of breath, flu Study: Chest AP portable Comparison: May 18, 2018 Findings: The heart is within normal limits in size. The xavier are normal. The aorta is calcified. The lungs are markedly hyperinflated and demonstrate diffuse interstitial lung changes bilaterally. There is some pleuro parenchymal scarring in the right lung apex unchanged from the prior examination. No acute alveolar infiltrates or pleural effusions are identified. The bony thorax is unremarkable. IMPRESSION: COPD with chronic interstitial lung disease, radiographically stable Reported By:
[2018-05-21] MEDS: ZITHROMAX INJ 500 MG VIAL 250 MG in NS 250 ML IV 250 ML IV SCH (08:13)
[2018-05-21] MEDS: TAMIFLU PO SCH ×2 (08:14→20:00)
[2018-05-21] MEDS: MILK OF MAGNESIA PO SCH (08:14)
[2018-05-21] MEDS: XANAX PO PRN ×2 (08:14→19:56)
[2018-05-21] MEDS: LEVAQUIN PREMIX IV 500 MG 500 MG/100 ML BAG IV SCH (08:14)
[2018-05-21] MEDS: COLACE CAP 100 MG PO PRN ×2 (08:14→19:56)
[2018-05-21] MEDS: PULMICORT NEB TX 0.5 MG NEB SCH ×2 (09:09→20:20)
[2018-05-21] MEDS: BROVANA IN SCH ×2 (09:09→20:20)
[2018-05-21] MEDS ORDERED: LASIX IVP ONE (10:39)
[2018-05-21 10:53] LABS: ABG BASE EXCESS 12.6 mmol/L (-2.0-2.0)
[2018-05-21 10:54] LABS: ABG HCO3 42.3 mmol/L (22-26)
[2018-05-21] MEDS ORDERED: SOLU-Medrol 40 MG VIAL IVP SCH (11:00)
[2018-05-22] MEDS: DUONEB 0.5 MG/3 MG NEB SCH ×6 (01:58→20:27)
[2018-05-22] MEDS: XANAX PO PRN ×2 (02:37→16:30)
[2018-05-22] MEDS: NS 1000 ML 1,000 ML IV SCH ×2 (03:15→15:30)
[2018-05-22 05:32] LABS: ABG BASE EXCESS 17.4 mmol/L (-2.0-2.0)
[2018-05-22 05:33] LABS: ABG HCO3 45.6 mmol/L (22-26)
[2018-05-22] MEDS: SOLU-Medrol 40 MG VIAL IVP SCH ×2 (05:43→15:29)
[2018-05-22 06:38] LABS: BASOPHILS % (AUTO) 0.4 % (0.2-1.0); HEMATOCRIT 36.9 % (36.0-47.0); HEMOGLOBIN 12.1 g/dL (12.0-16.0); LYMPHOCYTES # (AUTO) 0.6 X10^3/uL (1.3-2.9); LYMPHOCYTES % (AUTO) 6.1 % (21.0-51.0); MEAN CORPUSCULAR HEMOGLOBIN 29.1 pg (27.0-34.0); MEAN CORPUSCULAR HGB CONC 32.7 g/dL (33.0-35.0); MEAN CORPUSCULAR VOLUME 88.9 fL (80.0-100.0); MEAN PLATELET VOLUME 8.2 fL (7.4-11.0); MONOCYTES # (AUTO) 0.9 x10^3/uL (0.3-0.8); MONOCYTES % (AUTO) 9.5 % (0.0-13.0); PLATELET COUNT 152 X10^3/uL (150.0-450.0); RED BLOOD COUNT 4.15 X10^6/uL (3.5-5.4); RED CELL DISTRIBUTION WIDTH 14.9 % (11.6-16.5); WHITE BLOOD COUNT 9.6 X10^3/uL (3.6-10.0)
[2018-05-22 06:48] LABS: ALBUMIN 2.5 g/dL (3.4-5.0); BLOOD UREA NITROGEN 23 mg/dL (7-18); CALCIUM 7.9 mg/dL (8.5-10.1); CARBON DIOXIDE 38.6 mmol/L (21-32); CHLORIDE 102 mmol/L (98-107); COR CA(FOR HYPOALB) 9.1 mg/dL (8.5-10.1); SODIUM 139 mmol/L (136-145); eGFR NON BLACK RACES > 60 (>60)
[2018-05-22 07:32] LABS: ALANINE AMINOTRANSFERASE 23 Units/L (12-78); ALKALINE PHOSPHATASE 51 Units/L (46-116); ASPARTATE AMINO TRANSFERASE 27 Units/L (15-37); TOTAL PROTEIN 5.2 g/dL (6.4-8.2)
[2018-05-22] MEDS: LEVAQUIN PREMIX IV 500 MG 500 MG/100 ML BAG IV SCH (09:14)
[2018-05-22] MEDS: ZITHROMAX INJ 500 MG VIAL 250 MG in NS 250 ML IV 250 ML IV SCH (09:14)
[2018-05-22] MEDS: TAMIFLU PO SCH ×2 (09:14→20:20)
[2018-05-22] MEDS: TUSSIONEX PENNKINETIC SUSP PO PRN (09:15)
[2018-05-22] MEDS: COLACE CAP 100 MG PO PRN (09:15)
[2018-05-22] MEDS: MILK OF MAGNESIA PO SCH (09:15)
[2018-05-22] MEDS: ROBITUSSIN DM PO PRN (09:20)
[2018-05-22] MEDS: PULMICORT NEB TX 0.5 MG NEB SCH ×2 (09:30→20:27)
[2018-05-22] MEDS: BROVANA IN SCH ×2 (09:30→20:26)
--- NOTE | 2018-05-22 18:28 | PCM.PROG ---
Progress Note - Progress Note for Day of Date of Exam: 05/20/18 - Subjective Subjective: 72 WF ER ADMISSION WITH RESPIRATORY DISTRESS, PT HAS CO2 80 THIS AM. PT ON VENTI MASK. PT HAS PMH OF CHRONIC RESP FAILURE. PT IS CURRENTLY ON IV ATBX, RESP THERAPY, IV SOLU MEDROL. PT K 5.4 THIS AM, ENCOURAGED ORAL HYDRATION AND KAYEXALATE PO X 1 DOSE WITH REPEAT AM K AND CONTINUOUS CARIDAC MONITORING. - Past Medical Family Social History Past Med/Fam/Surg Hx: No changes since H&P Allergies: Allergies No Known Drug Allergies Allergy (Verified 04/15/18 08:30) - Review of Systems ROS: No change since H&P - Vital Signs and I&O's Vital Signs: Temperature 97.7 F Pulse Rate [Apical] 99 Pulse Rate 88 Respiratory Rate 19 Blood Pressure [Left Arm] 158/87 Blood Pressure [Right Arm] 161/75 Blood Pressure 133/61 O2 Sat by Pulse Oximetry 92 Intake and Output: Intake & Output 05/20/18 05/21/18 05/22/18 05/23/18 11:59 11:59 11:59 11:59 Intake Total 2462 / 2462 2838 / 2838 3172 / 3172 250 / 250 Output Total 825 / 825 800 / 800 1750 / 1750 1700 / 1700 Balance 1637 / 1637 2038 / 2038 1422 / 1422 -1450 / -1450 - Physical Exam Oriented: Normal Eyes: Normal Ear: Normal Nose: Normal Throat: Normal Respiratory: Diminished, Wheezes Cardiovascular: Tachycardia : Normal Auscultation: Bowel Sounds: Normal Tenderness: Normal Skin: Normal Musculoskeletal: Back:Lumbar, Tender Psychiatric: Normal Mood Description: Calm Affect: Normal Speech Pattern: Clear, Appropriate - Laboratory and Diagnostics Result Diagrams: 05/22/18 05:55 05/22/18 05:55 Labs: 05/17/18 17:37 Blood Blood Culture - Preliminary 05/17/18 17:32 Blood Blood Culture - Preliminary Laboratory WBC 9.6 X10^3/uL (3.6-10.0) 05/22/18 05:55 RBC 4.15 X10^6/uL (3.5-5.4) 05/22/18 05:55 Hgb 12.1 g/dL (12.0-16.0) 05/22/18 05:55 Hct 36.9 % (36.0-47.0) 05/22/18 05:55 MCV 88.9 fL (80.0-100.0) 05/22/18 05:55 MCH 29.1 pg (27.0-34.0) 05/22/18 05:55 MCHC 32.7 g/dL (33.0-35.0) L 05/22/18 05:55 RDW 14.9 % (11.6-16.5) 05/22/18 05:55 Plt Count 152 X10^3/uL (150.0-450.0) 05/22/18 05:55 Plt Count Comment Adequate (ADEQUATE) 05/21/18 05:40 MPV 8.2 fL (7.4-11.0) 05/22/18 05:55 Neut % (Auto) 84.0 % (42.0-75.0) H 05/22/18 05:55 Lymph % (Auto) 6.1 % (21.0-51.0) L 05/22/18 05:55 [place] % (Auto) 9.5 % (0.0-13.0) 05/22/18 05:55 Eos % (Auto) 0.0 % (0.9-2.9) L 05/22/18 05:55 Baso % (Auto) 0.4 % (0.2-1.0) 05/22/18 05:55 Neut # (Auto) 8.0 x10^3/uL (2.2-4.8) H 05/22/18 05:55 Lymph # (Auto) 0.6 X10^3/uL (1.3-2.9) L 05/22/18 05:55 [place] # (Auto) 0.9 x10^3/uL (0.3-0.8) H 05/22/18 05:55 Eos # (Auto) 0.0 x10^3/uL (0.0-0.2) 05/22/18 05:55 Baso # (Auto) 0.0 X10^3/uL (0.0-0.1) 05/22/18 05:55 Absolute Nucleated RBC 0.1 /100WBC 05/22/18 05:55 Total Counted 100 05/21/18 05:40 Neutrophils % (Manual) 80 % (39-76) H 05/21/18 05:40 Band Neutrophils % 2 % (0-10) 05/19/18 06:09 Lymphocytes % (Manual) 18 % (13-43) 05/21/18 05:40 Monocytes % (Manual) 2 % (4-9) L 05/21/18 05:40 Plt Morphology Comment Normal (NORMAL) 05/21/18 05:40 RBC Morphology Normal (NORMAL) 05/21/18 05:40 INR Target Range - 05/17/18 14:35 INR 0.91 (0.8-1.3) 05/17/18 14:35 APTT 31.6 SECONDS (22.9-36.5) 05/17/18 14:35 PTT Comment - 05/17/18 14:35 D-Dimer < 100 ng/mL (0-400) 05/17/18 14:35 Sample Site Rbra 05/22/18 05:30 ABG pH 7.410 (7.35-7.45) 05/22/18 05:30 ABG pCO2 72.0 mmHg (35.0-45.0) H* 05/22/18 05:30 ABG pO2 87.0 mmHg (80.0-100.0) 05/22/18 05:30 ABG HCO3 45.6 mmol/L (22-26) H* 05/22/18 05:30 ABG O2 Saturation 97.0 % (90-100) 05/22/18 05:30 ABG Base Excess 17.4 mmol/L (-2.0-2.0) H 05/22/18 05:30 Ramin Test Na 05/22/18 05:30 A-a Gradient 108.0 mmHg 05/22/18 05:30 FiO2 40.0 05/22/18 05:30 Blood Gas Comments Lizandro abg well-mtf 05/22/18 05:30 Sodium 139 mmol/L (136-145) 05/22/18 05:55 Corrected Sodium TNP 05/22/18 05:55 Potassium 4.6 mmol/L (3.5-5.1) 05/22/18 05:55 Chloride 102 mmol/L (98-107) 05/22/18 05:55 Carbon Dioxide 38.6 mmol/L (21-32) H 05/22/18 05:55 BUN 23 mg/dL (7-18) H 05/22/18 05:55 Creatinine 0.60 mg/dL (0.55-1.02) 05/22/18 05:55 Est GFR (MDRD) Af Amer > 60 (>60) 05/22/18 05:55 Est GFR (MDRD) Non-Af > 60 (>60) 05/22/18 05:55 Glucose 98 mg/dL (65-99) 05/22/18 05:55 Lactic Acid 0.9 mmol/L (0.4-2.0) 05/17/18 17:32 Calcium 7.9 mg/dL (8.5-10.1) L 05/22/18 05:55 Corrected Calcium 9.1 mg/dL (8.5-10.1) 05/22/18 05:55 Magnesium 1.7 mg/dL (1.7-2.9) 05/17/18 14:35 Total Bilirubin 0.30 mg/dL (0.2-1.0) 05/22/18 05:55 AST 27 Units/L (15-37) 05/22/18 05:55 ALT 23 Units/L (12-78) 05/22/18 05:55 Alkaline Phosphatase 51 Units/L (46-116) 05/22/18 05:55 Creatine Kinase 40 Units/L (26-192) 05/17/18 14:35 CK-MB (CK-2) < 1.0 ng/mL (0-4.0) 05/17/18 14:35 CK/CKMB % Calc 2.5 % (<4) 05/17/18 14:35 Troponin I < 0.02 ng/mL (0-1.5) 05/17/18 14:35 Total Protein 5.2 g/dL (6.4-8.2) L 05/22/18 05:55 Albumin 2.5 g/dL (3.4-5.0) L 05/22/18 05:55 Globulin 2.7 g/dL (2.5-4.5) 05/22/18 05:55 Albumin/Globulin Ratio 0.9 Ratio (1.1-2.1) L 05/22/18 05:55 Specimen Type Catherized urine 05/18/18 11:02 Urine Color Yellow (YELLOW) 05/18/18 11:02 Urine Appearance Hazy (CLEAR) 05/18/18 11:02 Urine pH 5.0 (5.0 - 8.0) 05/18/18 11:02 Ur Specific [place] 1.025 (1.000-1.030) 05/18/18 11:02 Urine Protein 3+ (NEGATIVE) 05/18/18 11:02 Urine Glucose (UA) Negative (NEGATIVE) 05/18/18 11:02 Urine Ketones Negative (NEGATIVE) 05/18/18 11:02 Urine Occult Blood Negative (NEGATIVE) 05/18/18 11:02 Urine Nitrite Negative (NEGATIVE) 05/18/18 11:02 Urine Bilirubin Negative (NEGATIVE) 05/18/18 11:02 Urine Urobilinogen Normal (NORMAL) 05/18/18 11:02 Ur Leukocyte Esterase Negative (NEGATIVE) 05/18/18 11:02 Urine RBC 0-2 /HPF (NONE SEEN) 05/18/18 11:02 Urine WBC 0-2 /HPF (NONE SEEN) 05/18/18 11:02 Ur Squamous Epith Cells Few /HPF (NEGATIVE) 05/18/18 11:02 Amorphous Sediment 2+ /HPF (NEGATIVE) 05/18/18 11:02 Urine Bacteria Negative /HPF (NEGATIVE) 05/18/18 11:02 Hyaline Casts Rare /LPF (NEGATIVE) 05/17/18 22:30 Ur Culture Indicated? No/not indicated 05/18/18 11:02 Influenza Type A (PCR) Positive (NEGATIVE) A 05/17/18 14:20 Influenza Type B (PCR) Negative (NEGATIVE) 05/17/18 14:20 - Plan (1) Acute respiratory distress Status: Acute Plan: CONTINUE RESP THERAPY, IV ATBX. AM ABG, AM CXR, SUPPLEMENTAL O2. STRICT I & OS. BP CONTROL, BIPAP PRN (2) Hyperkalemia Status: Acute (3) CAD (coronary artery disease) Status: Chronic (4) CHF (congestive heart failure) Status: Chronic (5) Anxiety Status: Chronic (6) COPD (chronic obstructive pulmonary disease) with acute bronchitis Status: Acute (7) Hypoxia Status: Acute Plan: RESPIRATORY TREATMENTS, SUPPLEMENTAL OXYGEN, CONTINUE TO MONITOR (8) Influenza A Status: Acute Plan: TAMIFLU, N/V
--- NOTE | 2018-05-22 18:36 | PCM.PROG ---
Progress Note - Subjective Subjective: 72 WF ER ADMISSION WITH RESPIRATORY DISTRESS, PT HAS CO2 84 THIS AM. PT PLACED ON BIPAP, VERY WEAK THIS AM. PT HAS PMH OF CHRONIC RESP FAILURE. PT IS CURRENTLY ON IV ATBX, RESP THERAPY, IV SOLU MEDROL. PT K 4.6 THIS AM, ENCOURAGED ORAL HYDRATION AND CONTINUOUS CARIDAC MONITORING. - Past Medical Family Social History Past Med/Fam/Surg Hx: No changes since H&P Allergies: Allergies No Known Drug Allergies Allergy (Verified 04/15/18 08:30) - Review of Systems ROS: No change since H&P - Vital Signs and I&O's Vital Signs: Temperature 97.7 F Pulse Rate [Apical] 99 Pulse Rate 88 Respiratory Rate 19 Blood Pressure [Left Arm] 158/87 Blood Pressure [Right Arm] 161/75 Blood Pressure 133/61 O2 Sat by Pulse Oximetry 92 Intake and Output: Intake & Output 05/20/18 05/21/18 05/22/18 05/23/18 11:59 11:59 11:59 11:59 Intake Total 2462 / 2462 2838 / 2838 3172 / 3172 250 / 250 Output Total 825 / 825 800 / 800 1750 / 1750 1700 / 1700 Balance 1637 / 1637 2038 / 2038 1422 / 1422 -1450 / -1450 - Physical Exam Oriented: Normal Eyes: Normal Ear: Normal Nose: Normal Throat: Normal Respiratory: Diminished, Wheezes Cardiovascular: Tachycardia : Normal Auscultation: Bowel Sounds: Normal Tenderness: Normal Skin: Normal Musculoskeletal: Back:Lumbar, Tender Psychiatric: Normal Mood Description: Calm Affect: Normal Speech Pattern: Clear, Appropriate - Laboratory and Diagnostics Result Diagrams: 05/22/18 05:55 05/22/18 05:55 Labs: 05/17/18 17:37 Blood Blood Culture - Preliminary 05/17/18 17:32 Blood Blood Culture - Preliminary Laboratory WBC 9.6 X10^3/uL (3.6-10.0) 05/22/18 05:55 RBC 4.15 X10^6/uL (3.5-5.4) 05/22/18 05:55 Hgb 12.1 g/dL (12.0-16.0) 05/22/18 05:55 Hct 36.9 % (36.0-47.0) 05/22/18 05:55 MCV 88.9 fL (80.0-100.0) 05/22/18 05:55 MCH 29.1 pg (27.0-34.0) 05/22/18 05:55 MCHC 32.7 g/dL (33.0-35.0) L 05/22/18 05:55 RDW 14.9 % (11.6-16.5) 05/22/18 05:55 Plt Count 152 X10^3/uL (150.0-450.0) 05/22/18 05:55 Plt Count Comment Adequate (ADEQUATE) 05/21/18 05:40 MPV 8.2 fL (7.4-11.0) 05/22/18 05:55 Neut % (Auto) 84.0 % (42.0-75.0) H 05/22/18 05:55 Lymph % (Auto) 6.1 % (21.0-51.0) L 05/22/18 05:55 [place] % (Auto) 9.5 % (0.0-13.0) 05/22/18 05:55 Eos % (Auto) 0.0 % (0.9-2.9) L 05/22/18 05:55 Baso % (Auto) 0.4 % (0.2-1.0) 05/22/18 05:55 Neut # (Auto) 8.0 x10^3/uL (2.2-4.8) H 05/22/18 05:55 Lymph # (Auto) 0.6 X10^3/uL (1.3-2.9) L 05/22/18 05:55 Bertie # (Auto) 0.9 x10^3/uL (0.3-0.8) H 05/22/18 05:55 Eos # (Auto) 0.0 x10^3/uL (0.0-0.2) 05/22/18 05:55 Baso # (Auto) 0.0 X10^3/uL (0.0-0.1) 05/22/18 05:55 Absolute Nucleated RBC 0.1 /100WBC 05/22/18 05:55 Total Counted 100 05/21/18 05:40 Neutrophils % (Manual) 80 % (39-76) H 05/21/18 05:40 Band Neutrophils % 2 % (0-10) 05/19/18 06:09 Lymphocytes % (Manual) 18 % (13-43) 05/21/18 05:40 Monocytes % (Manual) 2 % (4-9) L 05/21/18 05:40 Plt Morphology Comment Normal (NORMAL) 05/21/18 05:40 RBC Morphology Normal (NORMAL) 05/21/18 05:40 INR Target Range - 05/17/18 14:35 INR 0.91 (0.8-1.3) 05/17/18 14:35 APTT 31.6 SECONDS (22.9-36.5) 05/17/18 14:35 PTT Comment - 05/17/18 14:35 D-Dimer < 100 ng/mL (0-400) 05/17/18 14:35 Sample Site Rbra 05/22/18 05:30 ABG pH 7.410 (7.35-7.45) 05/22/18 05:30 ABG pCO2 72.0 mmHg (35.0-45.0) H* 05/22/18 05:30 ABG pO2 87.0 mmHg (80.0-100.0) 05/22/18 05:30 ABG HCO3 45.6 mmol/L (22-26) H* 05/22/18 05:30 ABG O2 Saturation 97.0 % (90-100) 05/22/18 05:30 ABG Base Excess 17.4 mmol/L (-2.0-2.0) H 05/22/18 05:30 Ramin Test Na 05/22/18 05:30 A-a Gradient 108.0 mmHg 05/22/18 05:30 FiO2 40.0 05/22/18 05:30 Blood Gas Comments Lizandro abg well-mtf 05/22/18 05:30 Sodium 139 mmol/L (136-145) 05/22/18 05:55 Corrected Sodium TNP 05/22/18 05:55 Potassium 4.6 mmol/L (3.5-5.1) 05/22/18 05:55 Chloride 102 mmol/L (98-107) 05/22/18 05:55 Carbon Dioxide 38.6 mmol/L (21-32) H 05/22/18 05:55 BUN 23 mg/dL (7-18) H 05/22/18 05:55 Creatinine 0.60 mg/dL (0.55-1.02) 05/22/18 05:55 Est GFR (MDRD) Af Amer > 60 (>60) 05/22/18 05:55 Est GFR (MDRD) Non-Af > 60 (>60) 05/22/18 05:55 Glucose 98 mg/dL (65-99) 05/22/18 05:55 Lactic Acid 0.9 mmol/L (0.4-2.0) 05/17/18 17:32 Calcium 7.9 mg/dL (8.5-10.1) L 05/22/18 05:55 Corrected Calcium 9.1 mg/dL (8.5-10.1) 05/22/18 05:55 Magnesium 1.7 mg/dL (1.7-2.9) 05/17/18 14:35 Total Bilirubin 0.30 mg/dL (0.2-1.0) 05/22/18 05:55 AST 27 Units/L (15-37) 05/22/18 05:55 ALT 23 Units/L (12-78) 05/22/18 05:55 Alkaline Phosphatase 51 Units/L (46-116) 05/22/18 05:55 Creatine Kinase 40 Units/L (26-192) 05/17/18 14:35 CK-MB (CK-2) < 1.0 ng/mL (0-4.0) 05/17/18 14:35 CK/CKMB % Calc 2.5 % (<4) 05/17/18 14:35 Troponin I < 0.02 ng/mL (0-1.5) 05/17/18 14:35 Total Protein 5.2 g/dL (6.4-8.2) L 05/22/18 05:55 Albumin 2.5 g/dL (3.4-5.0) L 05/22/18 05:55 Globulin 2.7 g/dL (2.5-4.5) 05/22/18 05:55 Albumin/Globulin Ratio 0.9 Ratio (1.1-2.1) L 05/22/18 05:55 Specimen Type Catherized urine 05/18/18 11:02 Urine Color Yellow (YELLOW) 05/18/18 11:02 Urine Appearance Hazy (CLEAR) 05/18/18 11:02 Urine pH 5.0 (5.0 - 8.0) 05/18/18 11:02 Ur Specific [place] 1.025 (1.000-1.030) 05/18/18 11:02 Urine Protein 3+ (NEGATIVE) 05/18/18 11:02 Urine Glucose (UA) Negative (NEGATIVE) 05/18/18 11:02 Urine Ketones Negative (NEGATIVE) 05/18/18 11:02 Urine Occult Blood Negative (NEGATIVE) 05/18/18 11:02 Urine Nitrite Negative (NEGATIVE) 05/18/18 11:02 Urine Bilirubin Negative (NEGATIVE) 05/18/18 11:02 Urine Urobilinogen Normal (NORMAL) 05/18/18 11:02 Ur Leukocyte Esterase Negative (NEGATIVE) 05/18/18 11:02 Urine RBC 0-2 /HPF (NONE SEEN) 05/18/18 11:02 Urine WBC 0-2 /HPF (NONE SEEN) 05/18/18 11:02 Ur Squamous Epith Cells Few /HPF (NEGATIVE) 05/18/18 11:02 Amorphous Sediment 2+ /HPF (NEGATIVE) 05/18/18 11:02 Urine Bacteria Negative /HPF (NEGATIVE) 05/18/18 11:02 Hyaline Casts Rare /LPF (NEGATIVE) 05/17/18 22:30 Ur Culture Indicated? No/not indicated 05/18/18 11:02 Influenza Type A (PCR) Positive (NEGATIVE) A 05/17/18 14:20 Influenza Type B (PCR) Negative (NEGATIVE) 05/17/18 14:20 - Plan (1) Acute respiratory distress Status: Acute Plan: CONTINUE RESP THERAPY, IV ATBX. AM ABG, AM CXR, SUPPLEMENTAL O2. STRICT I & OS. BP CONTROL, BIPAP PRN (2) Hyperkalemia Status: Acute (3) CAD (coronary artery disease) Status: Chronic (4) CHF (congestive heart failure) Status: Chronic (5) Anxiety Status: Chronic (6) COPD (chronic obstructive pulmonary disease) with acute bronchitis Status: Acute (7) Hypoxia Status: Acute Plan: RESPIRATORY TREATMENTS, SUPPLEMENTAL OXYGEN, CONTINUE TO MONITOR (8) Influenza A Status: Acute Plan: TAMIFLU, N/V
[2018-05-22] MEDS ORDERED: NORVASC TAB 2.5 MG ONE (19:42)
[2018-05-22] MEDS: NORVASC TAB 2.5 MG PO SCH (20:20)
[2018-05-23] MEDS: DUONEB 0.5 MG/3 MG NEB SCH ×4 (01:30→12:20)
[2018-05-23] MEDS: XANAX PO PRN ×3 (05:20→21:06)
[2018-05-23] MEDS: NS 1000 ML 1,000 ML IV SCH (05:20)
[2018-05-23 06:20] LABS: BASOPHILS % (AUTO) 0.4 % (0.2-1.0); HEMATOCRIT 41.8 % (36.0-47.0); HEMOGLOBIN 13.9 g/dL (12.0-16.0); LYMPHOCYTES % (AUTO) 10.1 % (21.0-51.0); MEAN CORPUSCULAR HEMOGLOBIN 29.3 pg (27.0-34.0); MEAN CORPUSCULAR HGB CONC 33.2 g/dL (33.0-35.0); MEAN CORPUSCULAR VOLUME 88.1 fL (80.0-100.0); MEAN PLATELET VOLUME 8.6 fL (7.4-11.0); MONOCYTES # (AUTO) 1.2 x10^3/uL (0.3-0.8); MONOCYTES % (AUTO) 12.1 % (0.0-13.0); NEUTROPHILS # (AUTO) 7.9 x10^3/uL (2.2-4.8); NEUTROPHILS % (AUTO) 77.4 % (42.0-75.0); PLATELET COUNT 166 X10^3/uL (150.0-450.0); RED BLOOD COUNT 4.74 X10^6/uL (3.5-5.4); RED CELL DISTRIBUTION WIDTH 14.7 % (11.6-16.5); WHITE BLOOD COUNT 10.2 X10^3/uL (3.6-10.0)
[2018-05-23 06:23] LABS: ALANINE AMINOTRANSFERASE 28 Units/L (12-78); ALBUMIN 3.1 g/dL (3.4-5.0); ALKALINE PHOSPHATASE 67 Units/L (46-116); ASPARTATE AMINO TRANSFERASE 39 Units/L (15-37); BLOOD UREA NITROGEN 11 mg/dL (7-18); CALCIUM 8.6 mg/dL (8.5-10.1); CARBON DIOXIDE 39.2 mmol/L (21-32); CHLORIDE 99 mmol/L (98-107); COR CA(FOR HYPOALB) 9.3 mg/dL (8.5-10.1); CREATININE 0.56 mg/dL (0.55-1.02); SODIUM 140 mmol/L (136-145); TOTAL PROTEIN 6.2 g/dL (6.4-8.2); eGFR NON BLACK RACES > 60 (>60)
[2018-05-23] MEDS ORDERED: NORVASC TAB 2.5 MG ONE (07:39)
[2018-05-23] MEDS: MILK OF MAGNESIA PO SCH (08:09)
[2018-05-23] MEDS: COLACE CAP 100 MG PO PRN (08:09)
[2018-05-23] MEDS: TAMIFLU PO SCH ×2 (08:09→21:07)
[2018-05-23] MEDS: NORVASC TAB 2.5 MG PO SCH (08:10)
[2018-05-23] MEDS: BROVANA IN SCH ×2 (09:11→20:32)
[2018-05-23] MEDS: PULMICORT NEB TX 0.5 MG NEB SCH ×2 (09:11→20:32)
[2018-05-23] MEDS: ZITHROMAX INJ 500 MG VIAL 250 MG in NS 250 ML IV 250 ML IV SCH (09:51)
[2018-05-23] MEDS: LEVAQUIN PREMIX IV 500 MG 500 MG/100 ML BAG IV SCH (09:51)
[2018-05-23] MEDS ORDERED: LEVAQUIN TAB 500 MG PO SCH (10:00)
[2018-05-23 13:36] LABS: CKMB % 1.5 % (<4); CREATINE KINASE 65 Units/L (26-192); CREATINE KINASE MB < 1.0 ng/mL (0-4.0); TROPONIN I 0.06 ng/mL (0-1.5)
[2018-05-23] MEDS ORDERED: XOPENEX 1.25 MG/3 ML NEBULE NEB PRN ×2 (13:40→18:21)
[2018-05-23] MEDS: CARDIZEM SR 60 MG PO SCH ×2 (14:18→21:07)
[2018-05-23] MEDS ORDERED: CARDIZEM INJ 50 MG VIAL IVP ONE (14:37)
[2018-05-23] MEDS ORDERED: LANOXIN INJ IVP ONE (15:00)
[2018-05-23] MEDS: XOPENEX 1.25 MG/3 ML NEBULE NEB SCH (17:41)
[2018-05-24] MEDS: XOPENEX 1.25 MG/3 ML NEBULE NEB SCH ×3 (00:10→12:32)
[2018-05-24] MEDS: NS 1000 ML 1,000 ML IV SCH ×4 (04:32→15:18)
[2018-05-24] MEDS: CARDIZEM SR 60 MG PO SCH ×2 (05:38→13:50)
[2018-05-24 06:00] LABS: BASOPHILS % (AUTO) 0.3 % (0.2-1.0); EOSINOPHILS # (AUTO) 0.1 x10^3/uL (0.0-0.2); EOSINOPHILS % (AUTO) 1.6 % (0.9-2.9); HEMATOCRIT 37.1 % (36.0-47.0); HEMOGLOBIN 12.2 g/dL (12.0-16.0); LYMPHOCYTES # (AUTO) 1.1 X10^3/uL (1.3-2.9); LYMPHOCYTES % (AUTO) 16.3 % (21.0-51.0); MEAN CORPUSCULAR HEMOGLOBIN 29.2 pg (27.0-34.0); MEAN CORPUSCULAR HGB CONC 32.8 g/dL (33.0-35.0); MEAN CORPUSCULAR VOLUME 89.1 fL (80.0-100.0); MEAN PLATELET VOLUME 8.1 fL (7.4-11.0); MONOCYTES # (AUTO) 0.7 x10^3/uL (0.3-0.8); MONOCYTES % (AUTO) 10.1 % (0.0-13.0); NEUTROPHILS % (AUTO) 71.7 % (42.0-75.0); PLATELET COUNT 133 X10^3/uL (150.0-450.0); RED BLOOD COUNT 4.16 X10^6/uL (3.5-5.4); RED CELL DISTRIBUTION WIDTH 14.9 % (11.6-16.5)
[2018-05-24 06:12] LABS: ALANINE AMINOTRANSFERASE 26 Units/L (12-78); ALBUMIN 2.5 g/dL (3.4-5.0); ALKALINE PHOSPHATASE 56 Units/L (46-116); ASPARTATE AMINO TRANSFERASE 31 Units/L (15-37); BLOOD UREA NITROGEN 9 mg/dL (7-18); CALCIUM 7.9 mg/dL (8.5-10.1); CHLORIDE 100 mmol/L (98-107); COR CA(FOR HYPOALB) 9.1 mg/dL (8.5-10.1); CREATININE 0.57 mg/dL (0.55-1.02); SODIUM 140 mmol/L (136-145); eGFR NON BLACK RACES > 60 (>60)
[2018-05-24 06:17] LABS: CARBON DIOXIDE 43.4 mmol/L (21-32)
[2018-05-24] MEDS: BROVANA IN SCH (08:14)
[2018-05-24] MEDS: PULMICORT NEB TX 0.5 MG NEB SCH (08:14)
[2018-05-24] MEDS ORDERED: LEVAQUIN PREMIX IV 250 MG 250 MG/50 ML BAG IV SCH (09:00)
[2018-05-24] MEDS: TAMIFLU PO SCH (09:30)
[2018-05-24] MEDS: MILK OF MAGNESIA PO SCH (09:30)
[2018-05-24] MEDS: COLACE CAP 100 MG PO PRN (09:30)
[2018-05-24] MEDS: ROBITUSSIN DM PO PRN (09:30)
[2018-05-24] MEDS: XANAX PO PRN (13:50)
[2018-05-24 15:18] VITALS: BP 136/64
== END 2018-05-24 15:10 | disposition home or self-care (01) | DRG 191 ==
LOC: ER 12:34 → ICU 18:15
PROVIDERS: ADMIT Internal Medicine; ATTEND Internal Medicine
DX: R26.89 Other abnormalities of gait and mobility; R07.89 Other chest pain; R94.31 Abnormal electrocardiogram [ECG] [EKG]; R09.02 Hypoxemia; I25.10 Atherosclerotic heart disease of native coronary artery without angina pectoris; F41.8 Other specified anxiety disorders; R06.02 Shortness of breath; J84.112 Idiopathic pulmonary fibrosis; F02.81 Dementia in other diseases classified elsewhere, unspecified severity, with behavioral disturbance; J44.1 Chronic obstructive pulmonary disease with (acute) exacerbation; K59.09 Other constipation; J20.8 Acute bronchitis due to other specified organisms; J10.1 Influenza due to other identified influenza virus with other respiratory manifestations
CPT/HCPCS: 36415; 36600; 71010; 71045; 80048; 80053; 81001; 82550; 82553; 82803; 83605; 83735; 84484; 85025; 85378; 85610; 85730; 87040; 87502; 93005; 94640; 94660; 96365; 96367; 96374; 96375; 97110; 97163; 97166; 97530; 99284; A4216; A4222; A4618; A7030; G9035; J0456; J1160; J1940; J1956; J2405; J2550; J2920; J2930; J3490; J7030; J7050; J7620; J7626

== ENCOUNTER 2019-03-08 12:27 | Inpatient (IN) ==
[2019-03-08] MEDS ORDERED: SOLU-Medrol 125 MG VIAL IVP ONE (13:48)
--- NOTE | 2019-03-08 13:48 | DR.SOBA ---
HPI Time Seen Time Seen by Provider: 03/08/19 13:23 Primary Care Physician Primary Care Physician: AVILA PIKE HPI Comment HPI Comment: PATIENT IS 73 YR OLD WHITE FEMALE WITH SEVER COPD ON HOME OXYGEN AND BIPAP AT HOME IN EMERGENCY ROOM WITH INCREASING SOB AND WORSENING OF HER SYMPTOMS. EVAL Complaints Chief Complaint Doctors Comments: COUGH, CONGESTION, CHEST PAIN AND SOB TIMES 3 DAYS. Chief Complaint:: PT C/O HAVING COLD FOR A FEW DAYS AND IT GOT WORSE ,BR PT C/O SOB ABDALLA, PT STARTED DOXYCYCLINE YESTERDAY , PT C/O CONGESTION ,PT WENT TO [place] 2 DAYS AGO AND PT WAS TO BE SENT TO [place], AND SHE DID NOT WANT TO GO , PT STATES " THEY SAID I DID NOT HAVE PNEUMONIA ",R Reviewed Nurses Notes Reviewed: Yes Source History Provided: Patient Mode of Arrival Mode of Arrival: Ambulatory Timing Onset of Chief Complaint: 03/06/19 PMH PMH Past Medical History: Yes Past Medical History: Anxiety, CHF, COPD, Coronary Artery Disease, Kidney Stones and Renal Disease Past Surgical History: Yes Surgical History: Other Past Surgical History Comment: RIGHT NEPHECTOMY Family History History of Family Medical Conditions: Yes Family Medical History: Diabetes Mellitus Social History Does patient currently use any type of tobacco product: No Have you used tobacco products in the last 12 months: No Type of Tobacco Use: None Does any household member use tobacco: No Alcohol Use: None Do you use any recreational Drugs:: No Lives With: Family Lives Where: Home infectious screening In the last 2 months have you had wt loss of >10#?: NO Have you had fever, night sweats or hemotysis?: No Have you traveled outside the country in the last 6 months?: No Isolation: Standard ROS Review of Systems Constitutional: No Symptoms Reported and See HPI Eyes: No Symptoms Reported and See HPI ENTM: No Symptoms Reported and See HPI Respiratoy: See HPI, Moist Cough and Short of Breath Cardiovascular: No Symptoms Reported and See HPI Gastrointestinal/Abdominal: No Symptoms Reported and See HPI Genitourinary: No Symptoms Reported and See HPI Neurological: No Symptoms Reported and See HPI Musculoskeletal: No Symptoms Reported and See HPI Integumentary: No Symptoms Reported and See HPI Hematologic/Lymphatic: No Symptoms Reported and See HPI Endocrine: No Symptoms Reported and See HPI Psychiatric: No Symptoms Reported and See HPI All Other Systems: Reviewed and Negative PE Vital Signs Vitals: Temperature 96.9 F Pulse Rate 97 Respiratory Rate 20 Blood Pressure [Left Arm] 136/64 Blood Pressure [Right Arm] 198/84 Blood Pressure 114/51 O2 Sat by Pulse Oximetry 91 General Limitations: No Limitations General Appearance: Alert and In No Apparent Distress Head Head Exam: Normal Inspection Eyes Eye exam: Normal Appearance ENT ENT Exam: Normal Exam Neck Neck Exam: Normal Inspection Chest Chest Inspection: Normal Inspection Respiratory Respiratory Exam: Normal Lung Sounds Bilat Respiratory Exam: Bilateral: Rhonchi (bilateral lower lobes) Cardiovascular Cardiovascular Exam: Regular Rate and Normal Rhythm Abdominal Exam Abdominal Exam: Normal Inspection, Normal Bowel Sounds and Soft Extremities Extremities Exam: Normal Inspection Back Back Exam: Normal Inspection Neurologic Neurological Exam: Alert and Oriented X3 Psychiatric Psychiatric Exam: Normal Affect, Normal Mood and Anxious Skin Skin Exam: Warm, Dry, Intact and Normal Color MDM Differential Diagnosis Differential Diagnosis: Anxiety, Bronchitis, CHF, COPD, Pneumonia and Respiratory Failure COURSE Treatment Treatment: See Orders Consultation Consultation Comments: Dr. Dewitt notified agrees to admit patient ROR Labs Reviewed Laboratory Results Reviewed?: Yes Result Diagrams: 03/23/19 04:44 03/23/19 04:44 Laboratory: 03/08/19 14:30 Blood Blood Culture - Final 03/08/19 14:20 Blood Blood Culture - Final 03/08/19 14:24 Sputum - Expectorated Sputum Sputum Culture - Final 03/08/19 14:24 Sputum - Expectorated Sputum - Final WBC 12.8 X10^3/uL (3.6-10.0) H 03/08/19 14:20 RBC 4.61 X10^6/uL (3.5-5.4) 03/08/19 14:20 Hgb 13.6 g/dL (12.0-16.0) 03/08/19 14:20 Hct 40.7 % (36.0-47.0) 03/08/19 14:20 MCV 88.3 fL (80.0-100.0) 03/08/19 14:20 MCH 29.5 pg (27.0-34.0) 03/08/19 14:20 MCHC 33.4 g/dL (33.0-35.0) 03/08/19 14:20 RDW 14.8 % (11.6-16.5) 03/08/19 14:20 Plt Count 164 X10^3/uL (150.0-450.0) 03/08/19 14:20 MPV 7.9 fL (7.4-11.0) 03/08/19 14:20 Neut % (Auto) 85.1 % (42.0-75.0) H 03/08/19 14:20 Lymph % (Auto) 3.0 % (21.0-51.0) L 03/08/19 14:20 [place] % (Auto) 11.7 % (0.0-13.0) 03/08/19 14:20 Eos % (Auto) 0.0 % (0.9-2.9) L 03/08/19 14:20 Baso % (Auto) 0.2 % (0.2-1.0) 03/08/19 14:20 Neut # (Auto) 10.8 x10^3/uL (2.2-4.8) H 03/08/19 14:20 Lymph # (Auto) 0.4 X10^3/uL (1.3-2.9) L 03/08/19 14:20 [place] # (Auto) 1.5 x10^3/uL (0.3-0.8) H 03/08/19 14:20 Eos # (Auto) 0.0 x10^3/uL (0.0-0.2) 03/08/19 14:20 Baso # (Auto) 0.0 X10^3/uL (0.0-0.1) 03/08/19 14:20 Absolute Nucleated RBC 0.1 /100WBC 03/08/19 14:20 PT 11.8 SECONDS (11.8-14.3) 03/08/19 14:20 INR Target Range - 03/08/19 14:20 INR 0.90 (0.8-1.3) 03/08/19 14:20 APTT 31.5 SECONDS (22.9-36.5) 03/08/19 14:20 PTT Comment - 03/08/19 14:20 Sample Site Lr 03/08/19 15:05 ABG pH 7.230 (7.35-7.45) L 03/08/19 15:05 ABG pCO2 94.0 mmHg (35.0-45.0) H* 03/08/19 15:05 ABG pO2 50.0 mmHg (80.0-100.0) L 03/08/19 15:05 ABG HCO3 39.4 mmol/L (22-26) H* 03/08/19 15:05 ABG O2 Saturation 77.0 % (90-100) L* 03/08/19 15:05 ABG Base Excess 8.5 mmol/L (-2.0-2.0) H 03/08/19 15:05 Ramin Test Pos 03/08/19 15:05 A-a Gradient 118.0 mmHg 03/08/19 15:05 FiO2 40.0 03/08/19 15:05 Blood Gas Comments Lizandro well cb 03/08/19 15:05 Sodium 132 mmol/L (136-145) L 03/08/19 14:20 Corrected Sodium TNP 03/08/19 14:20 Potassium 5.3 mmol/L (3.5-5.1) H 03/08/19 14:20 Chloride 94 mmol/L (98-107) L 03/08/19 14:20 Carbon Dioxide 31.7 mmol/L (21-32) 03/08/19 14:20 BUN 65 mg/dL (7-18) H 03/08/19 14:20 Creatinine 1.64 mg/dL (0.55-1.02) H 03/08/19 14:20 Est GFR (MDRD) Af Amer 39 (>60) L 03/08/19 14:20 Est GFR (MDRD) Non-Af 32 (>60) L 03/08/19 14:20 Glucose 97 mg/dL (65-99) 03/08/19 14:20 Lactic Acid 1.0 mmol/L (0.4-2.0) 03/08/19 14:20 Calcium 9.4 mg/dL (8.5-10.1) 03/08/19 14:20 Corrected Calcium TNP 03/08/19 14:20 Magnesium 2.1 mg/dL (1.7-2.9) 03/08/19 14:20 Total Bilirubin 0.60 mg/dL (0.2-1.0) 03/08/19 14:20 AST 52 Units/L (15-37) H 03/08/19 14:20 ALT 32 Units/L (12-78) 03/08/19 14:20 Alkaline Phosphatase 68 Units/L (46-116) 03/08/19 14:20 Creatine Kinase 116 Units/L (26-192) 03/08/19 14:20 CK-MB (CK-2) 1.8 ng/mL (0-4.0) 03/08/19 14:20 CK/CKMB % Calc 1.6 % (<4) 03/08/19 14:20 Troponin I < 0.02 ng/mL (0-1.5) 03/08/19 14:20 C-Reactive Protein 42.20 mg/L (0-3.0) H 03/08/19 14:20 B-Natriuretic Peptide 252 pg/mL (0-79) H 03/08/19 14:20 Total Protein 8.2 g/dL (6.4-8.2) 03/08/19 14:20 Albumin 3.7 g/dL (3.4-5.0) 03/08/19 14:20 Globulin 4.5 g/dL (2.5-4.5) 03/08/19 14:20 Albumin/Globulin Ratio 0.8 Ratio (1.1-2.1) L 03/08/19 14:20 Specimen Type Clean catch urine 03/08/19 15:04 Urine Color Pale yellow (YELLOW) 03/08/19 15:04 Urine Appearance Clear (CLEAR) 03/08/19 15:04 Urine pH 5.0 (5.0 - 8.0) 03/08/19 15:04 Ur Specific [place] 1.020 (1.000-1.030) 03/08/19 15:04 Urine Protein 2+ (NEGATIVE) 03/08/19 15:04 Urine Glucose (UA) Negative (NEGATIVE) 03/08/19 15:04 Urine Ketones Negative (NEGATIVE) 03/08/19 15:04 Urine Occult Blood Negative (NEGATIVE) 03/08/19 15:04 Urine Nitrite Negative (NEGATIVE) 03/08/19 15:04 Urine Bilirubin Negative (NEGATIVE) 03/08/19 15:04 Urine Urobilinogen Normal (NORMAL) 03/08/19 15:04 Ur Leukocyte Esterase Negative (NEGATIVE) 03/08/19 15:04 Urine RBC None seen /HPF (0-3) 03/08/19 15:04 Urine WBC None seen /HPF (0-5) 03/08/19 15:04 Ur Squamous Epith Cells Rare /HPF (NEGATIVE) 03/08/19 15:04 Amorphous Sediment Trace /HPF (NEGATIVE) 03/08/19 15:04 Urine Bacteria Negative /HPF (NEGATIVE) 03/08/19 15:04 Hyaline Casts Rare /LPF (NEGATIVE) 03/08/19 15:04 Urine Mucus Few /HPF (NEGATIVE) 03/08/19 15:04 Ur Culture Indicated? No/not indicated 03/08/19 15:04 Other Results Comments: Findings: The trachea is midline. The cardiac silhouette is unremarkable. Chronic pleural thickening the right apical lung zone is noted pleural parenchymal scarring. Chronic interstitial changes with flattening of the diaphragm is observed consistent with underlying COPD. The bony thorax is unremarkable. IMPRESSION: Chronic interstitial lung changes consistent with COPD as detailed above. XRAY XRAY Interpreted by: Radiologist EKG Rate: 84 [place]: Normal Rhythm: NSR Block: None ST: Nonsp Opioid Opioid Risk Tool Age (Thanh box if 16-45): No History of Preadolescent Sexual Abuse: No Total: 0 Total Score Risk Category: Low Risk Copyright: Ronnie NORTON predicting aberrant behaviors Instructions Instructions: Fall Prevention in the Home, Adult, [id number] Home Oxygen Use, Adult Hypoxia Chronic Obstructive Pulmonary Disease Exacerbation, [id number] Heart Failure, [id number] Atrial Fibrillation, [id number] Forms: Excuse From Work Patient Portal
[2019-03-08] MEDS ORDERED: SOLU-Medrol 125 MG VIAL ONE (14:07)
--- NOTE | 2019-03-08 14:13 | RAD ---
HISTORY: Shortness of breath Study: Two-view chest Comparison: 05/21/2018 Findings: The trachea is midline. The cardiac silhouette is unremarkable. Chronic pleural thickening the right apical lung zone is noted pleural parenchymal scarring. Chronic interstitial changes with flattening of the diaphragm is observed consistent with underlying COPD. The bony thorax is unremarkable. IMPRESSION: Chronic interstitial lung changes consistent with COPD as detailed above. Reported By:
[2019-03-08 14:54] LABS: BASOPHILS % (AUTO) 0.2 % (0.2-1.0); HEMATOCRIT 40.7 % (36.0-47.0); HEMOGLOBIN 13.6 g/dL (12.0-16.0); LYMPHOCYTES # (AUTO) 0.4 X10^3/uL (1.3-2.9); MEAN CORPUSCULAR HEMOGLOBIN 29.5 pg (27.0-34.0); MEAN CORPUSCULAR HGB CONC 33.4 g/dL (33.0-35.0); MEAN CORPUSCULAR VOLUME 88.3 fL (80.0-100.0); MEAN PLATELET VOLUME 7.9 fL (7.4-11.0); MONOCYTES # (AUTO) 1.5 x10^3/uL (0.3-0.8); MONOCYTES % (AUTO) 11.7 % (0.0-13.0); NEUTROPHILS # (AUTO) 10.8 x10^3/uL (2.2-4.8); NEUTROPHILS % (AUTO) 85.1 % (42.0-75.0); PLATELET COUNT 164 X10^3/uL (150.0-450.0); RED BLOOD COUNT 4.61 X10^6/uL (3.5-5.4); RED CELL DISTRIBUTION WIDTH 14.8 % (11.6-16.5); WHITE BLOOD COUNT 12.8 X10^3/uL (3.6-10.0)
[2019-03-08 15:00] LABS: BLOOD UREA NITROGEN 65 mg/dL (7-18); CALCIUM 9.4 mg/dL (8.5-10.1); CARBON DIOXIDE 31.7 mmol/L (21-32); CHLORIDE 94 mmol/L (98-107); CREATININE 1.64 mg/dL (0.55-1.02); SODIUM 132 mmol/L (136-145); TROPONIN I < 0.02 ng/mL (0-1.5); eGFR NON BLACK RACES 32 (>60)
[2019-03-08 15:06] LABS: ALANINE AMINOTRANSFERASE 32 Units/L (12-78); ALBUMIN 3.7 g/dL (3.4-5.0); ALKALINE PHOSPHATASE 68 Units/L (46-116); ASPARTATE AMINO TRANSFERASE 52 Units/L (15-37); CKMB % 1.6 % (<4); CREATINE KINASE 116 Units/L (26-192); CREATINE KINASE MB 1.8 ng/mL (0-4.0); MAGNESIUM 2.1 mg/dL (1.7-2.9); TOTAL PROTEIN 8.2 g/dL (6.4-8.2)
[2019-03-08 15:11] LABS: ABG BASE EXCESS 8.5 mmol/L (-2.0-2.0)
[2019-03-08 15:13] LABS: ABG ALLEN TEST POS; ABG HCO3 39.4 mmol/L (22-26)
[2019-03-08 15:19] LABS: BILIRUBIN,URINE NEGATIVE (NEGATIVE); BLOOD/HEMOGLOBIN,URINE NEGATIVE (NEGATIVE); GLUCOSE, URINE NEGATIVE (NEGATIVE); KETONES,URINE NEGATIVE (NEGATIVE); LEUKOCYTE ESTERASE ,URINE NEGATIVE (NEGATIVE); NITRITES,URINE NEGATIVE (NEGATIVE); PROTEIN,URINE 2+ (NEGATIVE); UROBILINOGEN,URINE NORMAL (NORMAL)
[2019-03-08 15:27] LABS: APPEARANCE,URINE CLEAR (CLEAR); COLOR,URINE PALE YELLOW (YELLOW)
[2019-03-08 15:28] LABS: AMORPHOUS SEDIMENT,UR TRACE /HPF (NEGATIVE); BACTERIA,URINE NEGATIVE /HPF (NEGATIVE); HYALINE CASTS, URINE RARE /LPF (NEGATIVE); MUCUS,URINE FEW /HPF (NEGATIVE); RBC,URINE NONE SEEN /HPF (0-3); SQUAMOUS EPITHELIAL CELL,UR RARE /HPF (NEGATIVE)
[2019-03-08 18:18] VITALS: BMI 16.0
[2019-03-08] MEDS ORDERED: NS 1000 ML 1,000 ML ONE (18:27)
[2019-03-08] MEDS: NS 1000 ML 1,000 ML IV SCH (18:37)
[2019-03-08] MEDS: FORTAZ or TAZICEF VIAL INJ 1 G in NS 100 ML IV + SPIKE MINIBAG* 100 ML IV SCH (18:40)
[2019-03-08] MEDS: XANAX PO PRN (19:07)
[2019-03-08] MEDS ORDERED: PATIENT'S HOME MEDICATION (Fluticasone-Salmeterol 500/50 1 PUFF) IN SCH (21:00)
[2019-03-08] MEDS ORDERED: DUONEB 0.5 MG/3 MG (3 mL) NEB SCH (21:00)
[2019-03-08] MEDS: PULMICORT NEB TX 0.5 MG NEB SCH (21:10)
[2019-03-08] MEDS: DUONEB 0.5 MG/3 MG (3 mL) NEB SCH (21:10)
[2019-03-09] MEDS: DUONEB 0.5 MG/3 MG (3 mL) NEB SCH ×6 (01:10→21:00)
[2019-03-09 05:04] LABS: ABG PCO2 > 115.0 mmHg (35.0-45.0)
[2019-03-09 06:14] LABS: ABG BASE EXCESS 5.3 mmol/L (-2.0-2.0)
[2019-03-09 06:16] LABS: ABG HCO3 36.3 mmol/L (22-26)
[2019-03-09 06:17] LABS: ABG ALLEN TEST P
[2019-03-09 06:54] LABS: BASOPHILS % (AUTO) 0.2 % (0.2-1.0); HEMATOCRIT 45.4 % (36.0-47.0); HEMOGLOBIN 15.2 g/dL (12.0-16.0); LYMPHOCYTES # (AUTO) 0.1 X10^3/uL (1.3-2.9); MEAN CORPUSCULAR HGB CONC 33.4 g/dL (33.0-35.0); MEAN CORPUSCULAR VOLUME 89.9 fL (80.0-100.0); MONOCYTES # (AUTO) 0.3 x10^3/uL (0.3-0.8); MONOCYTES % (AUTO) 4.5 % (0.0-13.0); NEUTROPHILS # (AUTO) 5.8 x10^3/uL (2.2-4.8); NEUTROPHILS % (AUTO) 93.3 % (42.0-75.0); PLATELET COUNT 149 X10^3/uL (150.0-450.0); RED BLOOD COUNT 5.05 X10^6/uL (3.5-5.4); RED CELL DISTRIBUTION WIDTH 14.7 % (11.6-16.5); WHITE BLOOD COUNT 6.3 X10^3/uL (3.6-10.0)
[2019-03-09 06:54] LABS: CARBON DIOXIDE 32.8 mmol/L (21-32); CREATININE 1.65 mg/dL (0.55-1.02)
[2019-03-09 07:14] LABS: PLATELET MORPHOLOGY COMMENT NORMAL (NORMAL)
[2019-03-09] MEDS: FORTAZ or TAZICEF VIAL INJ 1 G in NS 100 ML IV + SPIKE MINIBAG* 100 ML IV SCH (08:51)
[2019-03-09] MEDS: ASPIRIN EC 81 MG PO SCH (08:51)
[2019-03-09] MEDS ORDERED: SOLU-Medrol 40 MG VIAL IVP SCH (09:00)
[2019-03-09] MEDS: ACCUNEB 1.25 MG NEBULE NEB SCH (09:43)
[2019-03-09] MEDS: PULMICORT NEB TX 0.5 MG NEB SCH ×2 (09:45→21:01)
[2019-03-09 10:07] LABS: BILIRUBIN,URINE NEGATIVE (NEGATIVE); BLOOD/HEMOGLOBIN,URINE NEGATIVE (NEGATIVE); GLUCOSE, URINE NEGATIVE (NEGATIVE); KETONES,URINE NEGATIVE (NEGATIVE); LEUKOCYTE ESTERASE ,URINE NEGATIVE (NEGATIVE); NITRITES,URINE NEGATIVE (NEGATIVE); PROTEIN,URINE 2+ (NEGATIVE); UROBILINOGEN,URINE NORMAL (NORMAL)
--- NOTE | 2019-03-09 10:22 | RAD ---
HISTORY: Shortness of breath, respiratory distress. Prior history of coronary artery disease, COPD and CHF. Study: Single-view chest, done portably. Comparison: 03/08/2019. Findings: Trachea is midline. Heart size is normal. There is aortic uncoiling. There is hyperinflation of the lungs. There is a mixture of emphysematous change and increased interstitial markings. Interstitial markings have improved slightly compared to the prior study. This is best appreciated left upper lobe and right lower lobe regions. No consolidation, CHF or pleural fluid is seen. There is no evidence of pneumothorax. Osseous structures are intact. IMPRESSION: Severe COPD. There has been slight interval improvement with decreased interstitial markings seen in left upper and right lower lobe regions. No consolidation or CHF is seen. Reported By:
[2019-03-09 10:27] LABS: APPEARANCE,URINE SLIGHTLY HAZY (CLEAR); BACTERIA,URINE TRACE /HPF (NEGATIVE); COLOR,URINE YELLOW (YELLOW); RBC,URINE 0-2 /HPF (0-3); SQUAMOUS EPITHELIAL CELL,UR RARE /HPF (NEGATIVE)
[2019-03-09 10:28] LABS: AMORPHOUS SEDIMENT,UR 1+ /HPF (NEGATIVE); TRIPLE PHOSPHATE CRYSTAL,UR RARE /HPF (NEGATIVE); URIC ACID CRYSTALS,URINE MANY /HPF (NEGATIVE)
[2019-03-09] MEDS: PROTONIX INJ 40 MG VIAL IVP SCH (11:33)
[2019-03-09] MEDS: LOVENOX INJ 30 MG SYR SC SCH (11:39)
--- NOTE | 2019-03-09 12:42 | DR.H&P ---
H&P - History & Physical for Day of: H&P Date: 03/08/19 - Chief Complaint Chief Complaint: SOB - History of Present Illness History of Present Illness: PT IS 73 EF ER ADMISSION AFTRE PRESENTING WITH C/O HAVING COLD FOR A FEW DAYS AND IT GOT WORSE ,BR PT C/O SOB ABDALLA, PT STARTED DOXYCYCLINE YESTERDAY , PT C/O CONGESTION ,PT WENT TO [place] 2 DAYS AGO AND PT WAS TO BE SENT TO [place], AND SHE DID NOT WANT TO GO , PT STATES " THEY SAID I DID NOT HAVE PNEUMONIA " PT HAS TRILOGY AT HOME, USING DUO NEBS WITHOUT IMPROVEMENT. - Past Medical History Past Medical History: Coronary Artery Disease, Renal Disease, Anxiety, COPD, Kidney Stones, CHF Additional Medical History: Blind (L) Eye, Cataracts, Emphysema, Hepatits C, Osteoporosis - Past Surgical History Surgical History: Other Additional Surgical History: Nephrectomy, Eye Surgery - Family History Family Medical History: Diabetes Mellitus - Social History Does patient currently use any type of tobacco product: No Have you used tobacco products in the last 12 months: No Type of Tobacco Use: Cigarettes How many years tobacco product used: 20 Does any household member use tobacco: Yes (DAUGHTER SMOKES OUTSIDE) Alcohol Use: None Drug Use: None - Medications Home Medications: No Known Drug Allergies Allergy (Verified 03/08/19 12:35) - Review of Systems Constitutional: Weakness Eyes: No Symptoms Reported ENT: No Symptoms Reported Respiratory: Cough, Shortness of Breath, SOB with Excertion, Wheezing Cardiovascular: denies: Edema Gastrointestinal: No Symptoms Reported Genitourinary: No Symptoms Reported Musculoskeletal: Back Pain Skin: No Symptoms Reported Neurological: Weakness - Physical Exam Vital Signs: Temperature 98.3 F Pulse Rate [Left Brachial] 72 Pulse Rate 75 Respiratory Rate 24 Blood Pressure [Left Arm] 121/55 Blood Pressure [Right Arm] 198/84 Blood Pressure 114/51 O2 Sat by Pulse Oximetry 100 Oriented: Normal Eyes: Normal Ear: Normal Nose: Normal Throat: Dry Respiratory: Diminished Throughout Cardiovascular: Tachycardia : Normal Auscultation: Bowel Sounds: Normal Palpation: Normal Tenderness: Normal Skin: Decreased Turgur Psychiatric: Anxiety Affect: Anxious Speech Pattern: Clear, Appropriate - Assessment/Plan (1) Acute respiratory distress Status: Acute Plan: ADMIT, CE ON ADMISSION. ABG ON ADMISSION, BIPAP PRN. SUPPLEMENTAL O2, IV ANTIBIOTICS, IV STEROIDS. RESP THERAPY, CXR ON ADMISSION AND Q AM, BLOOD AND SPUTUM CUTLURES ON ADMISSION. VERIFY HOME MEDICATION, CONTINOUS CARDIAC MONITORING (2) COPD (chronic obstructive pulmonary disease) with acute bronchitis Status: Acute (3) Anxiety Status: Chronic (4) Hepatitis C Status: Chronic (5) Osteoarthritis Status: Chronic - Allergies Allergies/Adverse Reactions: Allergies Allergy/AdvReac Type Severity Reaction Status Date / Time No Known Drug Allergies Allergy Verified 03/08/19 12:35
[2019-03-09 12:59] LABS: CKMB % 3.4 % (<4); CREATINE KINASE MB 1.3 ng/mL (0-4.0); TROPONIN I 0.03 ng/mL (0-1.5)
[2019-03-09] MEDS: KAYEXALATE SUSP PO SCH ×2 (13:36→21:24)
[2019-03-09] MEDS: SOLU-Medrol 40 MG VIAL IVP SCH ×2 (13:37→21:25)
[2019-03-09] MEDS: ROBITUSSIN DM PO SCH ×3 (13:37→21:24)
[2019-03-09 13:56] LABS: ABG BASE EXCESS 4.8 mmol/L (-2.0-2.0)
[2019-03-09 13:57] LABS: ABG HCO3 36.5 mmol/L (22-26)
[2019-03-09 16:20] LABS: CARBON DIOXIDE 35.1 mmol/L (21-32); CREATININE 1.59 mg/dL (0.55-1.02)
--- NOTE | 2019-03-09 16:49 | PCM.PROG ---
Progress Note - Progress Note for Day of Date of Exam: 03/09/19 - Subjective Subjective: 73 WF ER ADMISSION WITH SOB. PT HAS HX OF RESP FAILURE WITH TRILOGY AT HOME AND CONTINUOUS SUPPLEMENTAL O2. PT WAS DEHYDRATED ON ADMISSION WITH BUN 70 CREAT 1.65, K+ 6.4 THIS AM. PT IS ON BIPAP. SOLU MEDROL GIVEN IN ER. PT NOTED TO HAVE MODERATE RESP DISTRESS WITH DIFFUSE DIMINISHED LUNG SOUNDS. PT MOVED TO ICU, REPEAT ABG AND CXR ORDERED STAT. PT IVF FLUIDS INCREASED TO 100CC/HR, CONDE CATH ORDERED FOR STRICT I & OS, KAYEXALATE X 2 DOSES AND REPEAT BMP. CE AND CONTINUOUS CARDIAC MONITORING. - Past Medical Family Social History Past Med/Fam/Surg Hx: No changes since H&P Allergies: Allergies No Known Drug Allergies Allergy (Verified 03/08/19 12:35) - Review of Systems ROS: No change since H&P - Vital Signs and I&O's Vital Signs: Temperature 97.5 F Pulse Rate [Left Brachial] 74 Pulse Rate 71 Respiratory Rate 24 Blood Pressure [Left Arm] 121/55 Blood Pressure [Right Arm] 118/58 Blood Pressure 121/60 O2 Sat by Pulse Oximetry 91 Intake and Output: Intake & Output 03/07/19 03/08/19 03/09/19 03/10/19 11:59 11:59 11:59 11:59 Intake Total 224 / 224 Balance 224 / 224 - Physical Exam Oriented: Normal Eyes: Normal Ear: Normal Nose: Normal Throat: Dry Respiratory: Diminished (MODERATE RESPIRATORY DISTRESS), Wheezes, Rhonchi Cardiovascular: Tachycardia : Normal Auscultation: Bowel Sounds: Normal Tenderness: Normal Skin: Decreased Turgur Psychiatric: Anxiety Affect: Anxious Speech Pattern: Clear, Appropriate - Laboratory and Diagnostics Result Diagrams: 03/09/19 05:52 03/09/19 16:05 Labs: 03/08/19 14:24 Sputum - Expectorated Sputum Sputum Culture - Preliminary 03/08/19 14:24 Sputum - Expectorated Sputum - Final Laboratory WBC 6.3 X10^3/uL (3.6-10.0) 03/09/19 05:52 RBC 5.05 X10^6/uL (3.5-5.4) 03/09/19 05:52 Hgb 15.2 g/dL (12.0-16.0) 03/09/19 05:52 Hct 45.4 % (36.0-47.0) 03/09/19 05:52 MCV 89.9 fL (80.0-100.0) 03/09/19 05:52 MCH 30.0 pg (27.0-34.0) 03/09/19 05:52 MCHC 33.4 g/dL (33.0-35.0) 03/09/19 05:52 RDW 14.7 % (11.6-16.5) 03/09/19 05:52 Plt Count 149 X10^3/uL (150.0-450.0) L 03/09/19 05:52 Plt Count Comment Adequate (ADEQUATE) 03/09/19 05:52 MPV 8.0 fL (7.4-11.0) 03/09/19 05:52 Neut % (Auto) 93.3 % (42.0-75.0) H 03/09/19 05:52 Lymph % (Auto) 2.0 % (21.0-51.0) L 03/09/19 05:52 [place] % (Auto) 4.5 % (0.0-13.0) 03/09/19 05:52 Eos % (Auto) 0.0 % (0.9-2.9) L 03/09/19 05:52 Baso % (Auto) 0.2 % (0.2-1.0) 03/09/19 05:52 Neut # (Auto) 5.8 x10^3/uL (2.2-4.8) H 03/09/19 05:52 Lymph # (Auto) 0.1 X10^3/uL (1.3-2.9) L 03/09/19 05:52 [place] # (Auto) 0.3 x10^3/uL (0.3-0.8) 03/09/19 05:52 Eos # (Auto) 0.0 x10^3/uL (0.0-0.2) 03/09/19 05:52 Baso # (Auto) 0.0 X10^3/uL (0.0-0.1) 03/09/19 05:52 Absolute Nucleated RBC 0.5 /100WBC 03/09/19 05:52 Total Counted 100 03/09/19 05:52 Neutrophils % (Manual) 92 % (39-76) H 03/09/19 05:52 Lymphocytes % (Manual) 4 % (13-43) L 03/09/19 05:52 Monocytes % (Manual) 4 % (4-9) 03/09/19 05:52 Plt Morphology Comment Normal (NORMAL) 03/09/19 05:52 RBC Morphology Normal (NORMAL) 03/09/19 05:52 PT 11.8 SECONDS (11.8-14.3) 03/08/19 14:20 INR Target Range - 03/08/19 14:20 INR 0.90 (0.8-1.3) 03/08/19 14:20 APTT 31.5 SECONDS (22.9-36.5) 03/08/19 14:20 PTT Comment - 03/08/19 14:20 Sample Site Rb 03/09/19 13:50 ABG pH 7.170 (7.35-7.45) L* 03/09/19 13:50 ABG pCO2 100.0 mmHg (35.0-45.0) H* 03/09/19 13:50 ABG pO2 57.0 mmHg (80.0-100.0) L 03/09/19 13:50 ABG HCO3 36.5 mmol/L (22-26) H* 03/09/19 13:50 ABG O2 Saturation 81.0 % (90-100) L* 03/09/19 13:50 ABG Base Excess 4.8 mmol/L (-2.0-2.0) H 03/09/19 13:50 Ramin Test Na 03/09/19 13:50 A-a Gradient 46.0 mmHg 03/09/19 13:50 FiO2 32.0 03/09/19 13:50 Blood Gas Comments Lizandro well cb 03/09/19 13:50 Sodium 137 mmol/L (136-145) 03/09/19 16:05 Corrected Sodium 138 mmol/L (136-145) 03/09/19 16:05 Potassium 5.3 mmol/L (3.5-5.1) H 03/09/19 16:05 Chloride 99 mmol/L (98-107) 03/09/19 16:05 Carbon Dioxide 35.1 mmol/L (21-32) H 03/09/19 16:05 BUN 74 mg/dL (7-18) H 03/09/19 16:05 Creatinine 1.59 mg/dL (0.55-1.02) H 03/09/19 16:05 Est GFR (MDRD) Af Amer 41 (>60) L 03/09/19 16:05 Est GFR (MDRD) Non-Af 34 (>60) L 03/09/19 16:05 Glucose 139 mg/dL (65-99) H 03/09/19 16:05 Lactic Acid 1.0 mmol/L (0.4-2.0) 03/08/19 14:20 Calcium 9.0 mg/dL (8.5-10.1) 03/09/19 16:05 Corrected Calcium TNP 03/08/19 14:20 Magnesium 2.1 mg/dL (1.7-2.9) 03/08/19 14:20 Total Bilirubin 0.60 mg/dL (0.2-1.0) 03/08/19 14:20 AST 52 Units/L (15-37) H 03/08/19 14:20 ALT 32 Units/L (12-78) 03/08/19 14:20 Alkaline Phosphatase 68 Units/L (46-116) 03/08/19 14:20 Creatine Kinase 38 Units/L (26-192) 03/09/19 12:32 CK-MB (CK-2) 1.3 ng/mL (0-4.0) 03/09/19 12:32 CK/CKMB % Calc 3.4 % (<4) 03/09/19 12:32 Troponin I 0.03 ng/mL (0-1.5) 03/09/19 12:32 C-Reactive Protein 42.20 mg/L (0-3.0) H 03/08/19 14:20 B-Natriuretic Peptide 252 pg/mL (0-79) H 03/08/19 14:20 Total Protein 8.2 g/dL (6.4-8.2) 03/08/19 14:20 Albumin 3.7 g/dL (3.4-5.0) 03/08/19 14:20 Globulin 4.5 g/dL (2.5-4.5) 03/08/19 14:20 Albumin/Globulin Ratio 0.8 Ratio (1.1-2.1) L 03/08/19 14:20 Specimen Type Catherized urine 03/09/19 09:25 Urine Color Yellow (YELLOW) 03/09/19 09:25 Urine Appearance Slightly hazy (CLEAR) 03/09/19 09:25 Urine pH 5.0 (5.0 - 8.0) 03/09/19 09:25 Ur Specific [place] 1.020 (1.000-1.030) 03/09/19 09:25 Urine Protein 2+ (NEGATIVE) 03/09/19 09:25 Urine Glucose (UA) Negative (NEGATIVE) 03/09/19 09:25 Urine Ketones Negative (NEGATIVE) 03/09/19 09:25 Urine Occult Blood Negative (NEGATIVE) 03/09/19 09:25 Urine Nitrite Negative (NEGATIVE) 03/09/19 09:25 Urine Bilirubin Negative (NEGATIVE) 03/09/19 09:25 Urine Urobilinogen Normal (NORMAL) 03/09/19 09:25 Ur Leukocyte Esterase Negative (NEGATIVE) 03/09/19 09:25 Urine RBC 0-2 /HPF (0-3) 03/09/19 09:25 Urine WBC 0-2 /HPF (0-5) 03/09/19 09:25 Ur Squamous Epith Cells Rare /HPF (NEGATIVE) 03/09/19 09:25 Uric Acid Crystals Many /HPF (NEGATIVE) 03/09/19 09:25 Triple Phos Crystals Rare /HPF (NEGATIVE) 03/09/19 09:25 Amorphous Sediment 1+ /HPF (NEGATIVE) 03/09/19 09:25 Urine Bacteria Trace /HPF (NEGATIVE) 03/09/19 09:25 Hyaline Casts Rare /LPF (NEGATIVE) 03/08/19 15:04 Urine Mucus Few /HPF (NEGATIVE) 03/08/19 15:04 Ur Culture Indicated? No/not indicated 03/09/19 09:25 - Plan (1) Acute respiratory distress Status: Acute Plan: REPEAT CE, CONTINUOUS CARDIAC MONITORING. ABG ON ADMISSION, BIPAP PRN, REPEAT ABG. SUPPLEMENTAL O2, IV ANTIBIOTICS, IV STEROIDS. RESP THERAPY, REPEAT STAT CXR AND IN THE AM, BLOOD AND SPUTUM CUTLURES ON ADMISSION. VERIFY HOME MEDICATION, CONTINOUS CARDIAC MONITORING (2) COPD (chronic obstructive pulmonary disease) with acute bronchitis Status: Acute (3) Anxiety Status: Chronic (4) Hepatitis C Status: Chronic (5) Osteoarthritis Status: Chronic
[2019-03-09] MEDS: NS 1000 ML 1,000 ML IV SCH ×2 (20:55→23:15)
[2019-03-10] MEDS: DUONEB 0.5 MG/3 MG (3 mL) NEB SCH ×6 (01:40→20:56)
[2019-03-10 05:19] LABS: BASOPHILS % (AUTO) 0.3 % (0.2-1.0); HEMATOCRIT 40.4 % (36.0-47.0); HEMOGLOBIN 13.3 g/dL (12.0-16.0); LYMPHOCYTES # (AUTO) 0.2 X10^3/uL (1.3-2.9); LYMPHOCYTES % (AUTO) 3.1 % (21.0-51.0); MEAN CORPUSCULAR HEMOGLOBIN 29.7 pg (27.0-34.0); MEAN CORPUSCULAR VOLUME 90.1 fL (80.0-100.0); MEAN PLATELET VOLUME 8.4 fL (7.4-11.0); MONOCYTES # (AUTO) 0.4 x10^3/uL (0.3-0.8); MONOCYTES % (AUTO) 7.9 % (0.0-13.0); NEUTROPHILS # (AUTO) 4.6 x10^3/uL (2.2-4.8); NEUTROPHILS % (AUTO) 88.7 % (42.0-75.0); PLATELET COUNT 136 X10^3/uL (150.0-450.0); RED BLOOD COUNT 4.49 X10^6/uL (3.5-5.4); RED CELL DISTRIBUTION WIDTH 14.6 % (11.6-16.5); WHITE BLOOD COUNT 5.2 X10^3/uL (3.6-10.0)
[2019-03-10 05:32] LABS: ALBUMIN 2.9 g/dL (3.4-5.0); CALCIUM 8.4 mg/dL (8.5-10.1); CARBON DIOXIDE 34.4 mmol/L (21-32); COR CA(FOR HYPOALB) 9.3 mg/dL (8.5-10.1); CREATININE 1.33 mg/dL (0.55-1.02); TOTAL PROTEIN 6.6 g/dL (6.4-8.2)
[2019-03-10] MEDS: SOLU-Medrol 40 MG VIAL IVP SCH (06:04)
[2019-03-10 06:31] LABS: ABG BASE EXCESS 8.3 mmol/L (-2.0-2.0)
[2019-03-10 06:32] LABS: ABG HCO3 38.1 mmol/L (22-26)
[2019-03-10 06:33] LABS: ABG ALLEN TEST POS
[2019-03-10] MEDS: FORTAZ or TAZICEF VIAL INJ 1 G in NS 100 ML IV + SPIKE MINIBAG* 100 ML IV SCH (09:31)
[2019-03-10] MEDS: LOVENOX INJ 30 MG SYR SC SCH (09:32)
[2019-03-10] MEDS: ROBITUSSIN DM PO SCH ×4 (09:32→18:41)
[2019-03-10] MEDS: PROTONIX INJ 40 MG VIAL IVP SCH (09:32)
[2019-03-10] MEDS: ASPIRIN EC 81 MG PO SCH (09:32)
[2019-03-10] MEDS: PULMICORT NEB TX 0.5 MG NEB SCH ×2 (09:50→20:56)
[2019-03-10] MEDS: ACCUNEB 1.25 MG NEBULE NEB SCH ×3 (09:50→20:55)
--- NOTE | 2019-03-10 12:59 | RAD ---
HISTORY: Shortness of breath, respiratory distress, COPD. Prior history of coronary artery disease, COPD and CHF. Study: Single-view chest Comparison: 03/09/2019. Findings: Trachea is midline. Heart size is upper normal. There is aortic uncoiling and prominence of the main pulmonary artery segment. There is hyperinflation of the lungs with increased interstitial markings bilaterally as well as emphysematous changes. No CHF, infiltrate, pleural fluid or pneumothorax is seen. Osseous structures are intact. IMPRESSION: Severe COPD without infiltrate or CHF. Reported By:
[2019-03-10] MEDS: NS 1000 ML 1,000 ML IV SCH ×2 (15:40→19:49)
[2019-03-11] MEDS: ROBITUSSIN DM PO SCH ×5 (00:20→20:33)
[2019-03-11] MEDS: DUONEB 0.5 MG/3 MG (3 mL) NEB SCH ×6 (01:20→20:10)
[2019-03-11] MEDS: XANAX PO PRN (02:28)
[2019-03-11 05:24] LABS: BASOPHILS % (AUTO) 0.2 % (0.2-1.0); EOSINOPHILS % (AUTO) 0.1 % (0.9-2.9); HEMATOCRIT 39.7 % (36.0-47.0); HEMOGLOBIN 12.9 g/dL (12.0-16.0); LYMPHOCYTES # (AUTO) 0.3 X10^3/uL (1.3-2.9); LYMPHOCYTES % (AUTO) 2.8 % (21.0-51.0); MEAN CORPUSCULAR HEMOGLOBIN 29.6 pg (27.0-34.0); MEAN CORPUSCULAR HGB CONC 32.5 g/dL (33.0-35.0); MEAN CORPUSCULAR VOLUME 91.1 fL (80.0-100.0); MEAN PLATELET VOLUME 8.8 fL (7.4-11.0); MONOCYTES # (AUTO) 1.7 x10^3/uL (0.3-0.8); MONOCYTES % (AUTO) 18.8 % (0.0-13.0); NEUTROPHILS % (AUTO) 78.1 % (42.0-75.0); PLATELET COUNT 155 X10^3/uL (150.0-450.0); RED BLOOD COUNT 4.36 X10^6/uL (3.5-5.4); RED CELL DISTRIBUTION WIDTH 14.7 % (11.6-16.5)
[2019-03-11 05:36] LABS: PLATELET MORPHOLOGY COMMENT NORMAL (NORMAL)
[2019-03-11 05:46] LABS: ALBUMIN 2.9 g/dL (3.4-5.0); CALCIUM 8.3 mg/dL (8.5-10.1); CARBON DIOXIDE 34.1 mmol/L (21-32); COR CA(FOR HYPOALB) 9.2 mg/dL (8.5-10.1); CREATININE 1.2 mg/dL (0.55-1.02); TOTAL PROTEIN 6.8 g/dL (6.4-8.2)
[2019-03-11] MEDS: NS 1000 ML 1,000 ML IV SCH ×2 (06:32→20:33)
[2019-03-11 06:47] LABS: ABG BASE EXCESS 7.6 mmol/L (-2.0-2.0)
[2019-03-11 06:50] LABS: ABG ALLEN TEST POS; ABG HCO3 38.8 mmol/L (22-26)
[2019-03-11] MEDS: PULMICORT NEB TX 0.5 MG NEB SCH ×2 (09:09→20:10)
[2019-03-11] MEDS: ACCUNEB 1.25 MG NEBULE NEB SCH ×2 (09:09→20:10)
[2019-03-11] MEDS: LOVENOX INJ 30 MG SYR SC SCH (09:31)
[2019-03-11] MEDS: SOLU-Medrol 125 MG VIAL IVP SCH ×3 (09:33→21:10)
[2019-03-11] MEDS: FORTAZ or TAZICEF VIAL INJ 1 G in NS 100 ML IV + SPIKE MINIBAG* 100 ML IV SCH (09:33)
[2019-03-11] MEDS: PROTONIX INJ 40 MG VIAL IVP SCH (09:35)
[2019-03-11] MEDS: ASPIRIN EC 81 MG PO SCH (09:35)
--- NOTE | 2019-03-11 18:00 | PCM.PROG ---
Progress Note - Progress Note for Day of Date of Exam: 03/11/19 - Subjective Subjective: 73 WF ER ADMISSION WITH SOB. PT HAS HX OF RESP FAILURE WITH TRILOGY AT HOME AND CONTINUOUS SUPPLEMENTAL O2. PT WAS DEHYDRATED ON ADMISSION WITH BUN 70 CREAT 1.65, K+ 6.4 THIS AM BUN 55, CREAT 1.20 K+ 4.0 PT IS ON BIPAP. SOLU MEDROL GIVEN IN ER. PT NOTED TO HAVE MODERATE RESP DISTRESS WITH DIFFUSE DIMINISHED LUNG SOUNDS. CURRENTLY IN ICU, REPEAT ABG TODAY AND IN THE AM. NS AT 75CC/HR. DUO NEBS, BUDESONIDE, IV STEROIDS, BIPAP THERAPY - Past Medical Family Social History Past Med/Fam/Surg Hx: No changes since H&P Allergies: Allergies No Known Drug Allergies Allergy (Verified 03/08/19 12:35) - Review of Systems ROS: No change since H&P - Vital Signs and I&O's Vital Signs: Temperature 98.0 F Pulse Rate [Left Brachial] 82 Pulse Rate 86 Respiratory Rate 27 Blood Pressure [Right Calf] 91/51 Blood Pressure [Left Calf] 85/50 Blood Pressure [Left Arm] 145/67 Blood Pressure [Right Arm] 118/58 Blood Pressure 118/56 O2 Sat by Pulse Oximetry 100 Intake and Output: Intake & Output 03/09/19 03/10/19 03/11/19 03/12/19 11:59 11:59 11:59 11:59 Intake Total 224 / 224 1116 / 1116 2218 / 2218 Output Total 600 / 600 200 / 200 Balance 224 / 224 516 / 516 2017 - Physical Exam Oriented: Normal Eyes: Normal Ear: Normal Nose: Normal Throat: Dry Respiratory: Diminished (MODERATE RESPIRATORY DISTRESS), Wheezes, Rhonchi Cardiovascular: Tachycardia : Normal Auscultation: Bowel Sounds: Normal Tenderness: Normal Skin: Decreased Turgur Musculoskeletal: Back:Lumbar Psychiatric: Anxiety Affect: Anxious Speech Pattern: Clear, Appropriate - Laboratory and Diagnostics Result Diagrams: 03/11/19 04:27 03/11/19 04:27 Labs: 03/08/19 14:30 Blood Blood Culture - Preliminary 03/08/19 14:20 Blood Blood Culture - Preliminary 03/08/19 14:24 Sputum - Expectorated Sputum Sputum Culture - Final 03/08/19 14:24 Sputum - Expectorated Sputum - Final Laboratory WBC 9.0 X10^3/uL (3.6-10.0) 03/11/19 04:27 RBC 4.36 X10^6/uL (3.5-5.4) 03/11/19 04:27 Hgb 12.9 g/dL (12.0-16.0) 03/11/19 04:27 Hct 39.7 % (36.0-47.0) 03/11/19 04:27 MCV 91.1 fL (80.0-100.0) 03/11/19 04:27 MCH 29.6 pg (27.0-34.0) 03/11/19 04:27 MCHC 32.5 g/dL (33.0-35.0) L 03/11/19 04:27 RDW 14.7 % (11.6-16.5) 03/11/19 04:27 Plt Count 155 X10^3/uL (150.0-450.0) 03/11/19 04:27 Plt Count Comment Adequate (ADEQUATE) 03/11/19 04:27 MPV 8.8 fL (7.4-11.0) 03/11/19 04:27 Neut % (Auto) 78.1 % (42.0-75.0) H 03/11/19 04:27 Lymph % (Auto) 2.8 % (21.0-51.0) L 03/11/19 04:27 [place] % (Auto) 18.8 % (0.0-13.0) H 03/11/19 04:27 Eos % (Auto) 0.1 % (0.9-2.9) L 03/11/19 04:27 Baso % (Auto) 0.2 % (0.2-1.0) 03/11/19 04:27 Neut # (Auto) 7.0 x10^3/uL (2.2-4.8) H 03/11/19 04:27 Lymph # (Auto) 0.3 X10^3/uL (1.3-2.9) L 03/11/19 04:27 [place] # (Auto) 1.7 x10^3/uL (0.3-0.8) H 03/11/19 04:27 Eos # (Auto) 0.0 x10^3/uL (0.0-0.2) 03/11/19 04:27 Baso # (Auto) 0.0 X10^3/uL (0.0-0.1) 03/11/19 04:27 Absolute Nucleated RBC 0.5 /100WBC 03/11/19 04:27 Total Counted 100 03/11/19 04:27 Neutrophils % (Manual) 82 % (39-76) H 03/11/19 04:27 Lymphocytes % (Manual) 6 % (13-43) L 03/11/19 04:27 Monocytes % (Manual) 12 % (4-9) H 03/11/19 04:27 Plt Morphology Comment Normal (NORMAL) 03/11/19 04:27 RBC Morphology Normal (NORMAL) 03/11/19 04:27 PT 11.8 SECONDS (11.8-14.3) 03/08/19 14:20 INR Target Range - 03/08/19 14:20 INR 0.90 (0.8-1.3) 03/08/19 14:20 APTT 31.5 SECONDS (22.9-36.5) 03/08/19 14:20 PTT Comment - 03/08/19 14:20 Sample Site Rrad 03/11/19 06:36 ABG pH 7.210 (7.35-7.45) L 03/11/19 06:36 ABG pCO2 97.0 mmHg (35.0-45.0) H* 03/11/19 06:36 ABG pO2 70.0 mmHg (80.0-100.0) L 03/11/19 06:36 ABG HCO3 38.8 mmol/L (22-26) H* 03/11/19 06:36 ABG O2 Saturation 90.0 % (90-100) 03/11/19 06:36 ABG Base Excess 7.6 mmol/L (-2.0-2.0) H 03/11/19 06:36 Ramin Test Pos 03/11/19 06:36 A-a Gradient 65.0 mmHg 03/11/19 06:36 FiO2 36.0 03/11/19 06:36 Blood Gas Comments Lizandro abg well-mtf 03/11/19 06:36 Sodium 144 mmol/L (136-145) 03/11/19 04:27 Corrected Sodium 144 mmol/L (136-145) 03/11/19 04:27 Potassium 4.0 mmol/L (3.5-5.1) 03/11/19 04:27 Chloride 106 mmol/L (98-107) 03/11/19 04:27 Carbon Dioxide 34.1 mmol/L (21-32) H 03/11/19 04:27 BUN 55 mg/dL (7-18) H 03/11/19 04:27 Creatinine 1.20 mg/dL (0.55-1.02) H 03/11/19 04:27 Est GFR (MDRD) Af Amer 56 (>60) L 03/11/19 04:27 Est GFR (MDRD) Non-Af 47 (>60) L 03/11/19 04:27 Glucose 112 mg/dL (65-99) H 03/11/19 04:27 Lactic Acid 1.0 mmol/L (0.4-2.0) 03/08/19 14:20 Calcium 8.3 mg/dL (8.5-10.1) L 03/11/19 04:27 Corrected Calcium 9.2 mg/dL (8.5-10.1) 03/11/19 04:27 Magnesium 2.1 mg/dL (1.7-2.9) 03/08/19 14:20 Total Bilirubin 0.30 mg/dL (0.2-1.0) 03/11/19 04:27 AST 29 Units/L (15-37) 03/11/19 04:27 ALT 22 Units/L (12-78) 03/11/19 04:27 Alkaline Phosphatase 52 Units/L (46-116) 03/11/19 04:27 Creatine Kinase 38 Units/L (26-192) 03/09/19 12:32 CK-MB (CK-2) 1.3 ng/mL (0-4.0) 03/09/19 12:32 CK/CKMB % Calc 3.4 % (<4) 03/09/19 12:32 Troponin I 0.03 ng/mL (0-1.5) 03/09/19 12:32 C-Reactive Protein 42.20 mg/L (0-3.0) H 03/08/19 14:20 B-Natriuretic Peptide 252 pg/mL (0-79) H 03/08/19 14:20 Total Protein 6.8 g/dL (6.4-8.2) 03/11/19 04:27 Albumin 2.9 g/dL (3.4-5.0) L 03/11/19 04:27 Globulin 3.9 g/dL (2.5-4.5) 03/11/19 04:27 Albumin/Globulin Ratio 0.7 Ratio (1.1-2.1) L 03/11/19 04:27 Specimen Type Catherized urine 03/09/19 09:25 Urine Color Yellow (YELLOW) 03/09/19 09:25 Urine Appearance Slightly hazy (CLEAR) 03/09/19 09:25 Urine pH 5.0 (5.0 - 8.0) 03/09/19 09:25 Ur Specific [place] 1.020 (1.000-1.030) 03/09/19 09:25 Urine Protein 2+ (NEGATIVE) 03/09/19 09:25 Urine Glucose (UA) Negative (NEGATIVE) 03/09/19 09:25 Urine Ketones Negative (NEGATIVE) 03/09/19 09:25 Urine Occult Blood Negative (NEGATIVE) 03/09/19 09:25 Urine Nitrite Negative (NEGATIVE) 03/09/19 09:25 Urine Bilirubin Negative (NEGATIVE) 03/09/19 09:25 Urine Urobilinogen Normal (NORMAL) 03/09/19 09:25 Ur Leukocyte Esterase Negative (NEGATIVE) 03/09/19 09:25 Urine RBC 0-2 /HPF (0-3) 03/09/19 09:25 Urine WBC 0-2 /HPF (0-5) 03/09/19 09:25 Ur Squamous Epith Cells Rare /HPF (NEGATIVE) 03/09/19 09:25 Uric Acid Crystals Many /HPF (NEGATIVE) 03/09/19 09:25 Triple Phos Crystals Rare /HPF (NEGATIVE) 03/09/19 09:25 Amorphous Sediment 1+ /HPF (NEGATIVE) 03/09/19 09:25 Urine Bacteria Trace /HPF (NEGATIVE) 03/09/19 09:25 Hyaline Casts Rare /LPF (NEGATIVE) 03/08/19 15:04 Urine Mucus Few /HPF (NEGATIVE) 03/08/19 15:04 Ur Culture Indicated? No/not indicated 03/09/19 09:25 - Plan (1) Acute respiratory distress Status: Acute Plan: REPEAT CE, CONTINUOUS CARDIAC MONITORING. BIPAP PRN, REPEAT ABG. SUPPLEMENTAL O2, IV ANTIBIOTICS, IV STEROIDS. RESP THERAPY, REPEAT STAT CXR AND IN THE AM, BLOOD AND SPUTUM CUTLURES ON ADMISSION. VERIFY HOME MEDICATION, CONTINOUS CARDIAC MONITORING (2) COPD (chronic obstructive pulmonary disease) with acute bronchitis Status: Acute (3) Anxiety Status: Chronic (4) Hepatitis C Status: Chronic (5) Osteoarthritis Status: Chronic
[2019-03-11] MEDS: BROVANA IN SCH (20:20)
[2019-03-11] MEDS: COLACE CAP 100 MG PO SCH (20:33)
[2019-03-12] MEDS: DUONEB 0.5 MG/3 MG (3 mL) NEB SCH ×6 (00:35→21:22)
[2019-03-12] MEDS: XANAX PO PRN (03:04)
[2019-03-12 05:25] LABS: ABG BASE EXCESS 10.6 mmol/L (-2.0-2.0)
[2019-03-12 05:26] LABS: ABG ALLEN TEST POS; ABG HCO3 40.9 mmol/L (22-26)
[2019-03-12] MEDS: SOLU-Medrol 40 MG VIAL IVP SCH ×3 (05:46→22:22)
[2019-03-12 08:51] LABS: ABG BASE EXCESS 9.9 mmol/L (-2.0-2.0)
[2019-03-12 08:52] LABS: ABG HCO3 38.5 mmol/L (22-26)
[2019-03-12 09:08] LABS: BASOPHILS % (AUTO) 0.2 % (0.2-1.0); EOSINOPHILS % (AUTO) 0.1 % (0.9-2.9); HEMATOCRIT 34.9 % (36.0-47.0); HEMOGLOBIN 11.5 g/dL (12.0-16.0); LYMPHOCYTES # (AUTO) 0.2 X10^3/uL (1.3-2.9); LYMPHOCYTES % (AUTO) 3.9 % (21.0-51.0); MEAN CORPUSCULAR HEMOGLOBIN 29.5 pg (27.0-34.0); MEAN CORPUSCULAR VOLUME 89.7 fL (80.0-100.0); MEAN PLATELET VOLUME 8.2 fL (7.4-11.0); MONOCYTES # (AUTO) 0.2 x10^3/uL (0.3-0.8); MONOCYTES % (AUTO) 3.3 % (0.0-13.0); NEUTROPHILS # (AUTO) 4.7 x10^3/uL (2.2-4.8); NEUTROPHILS % (AUTO) 92.5 % (42.0-75.0); PLATELET COUNT 88 X10^3/uL (150.0-450.0); RED BLOOD COUNT 3.89 X10^6/uL (3.5-5.4); RED CELL DISTRIBUTION WIDTH 14.3 % (11.6-16.5); WHITE BLOOD COUNT 5.1 X10^3/uL (3.6-10.0)
[2019-03-12] MEDS: BROVANA IN SCH ×2 (09:20→21:21)
[2019-03-12] MEDS: PULMICORT NEB TX 0.5 MG NEB SCH ×2 (09:20→21:22)
[2019-03-12 09:21] LABS: ALANINE AMINOTRANSFERASE 22 Units/L (12-78); ALBUMIN 2.8 g/dL (3.4-5.0); ALKALINE PHOSPHATASE 51 Units/L (46-116); ASPARTATE AMINO TRANSFERASE 25 Units/L (15-37); BLOOD UREA NITROGEN 42 mg/dL (7-18); CALCIUM 8.4 mg/dL (8.5-10.1); CARBON DIOXIDE 36.8 mmol/L (21-32); CHLORIDE 107 mmol/L (98-107); COR CA(FOR HYPOALB) 9.4 mg/dL (8.5-10.1); COR NA(FOR HYPERGLY) 147 mmol/L (136-145); CREATININE 0.96 mg/dL (0.55-1.02); SODIUM 146 mmol/L (136-145); TOTAL PROTEIN 6.2 g/dL (6.4-8.2); eGFR NON BLACK RACES > 60 (>60)
[2019-03-12] MEDS: ACCUNEB 1.25 MG NEBULE NEB SCH (09:24)
[2019-03-12] MEDS: ROBITUSSIN DM PO SCH ×4 (09:57→22:21)
[2019-03-12] MEDS: FORTAZ or TAZICEF VIAL INJ 1 G in NS 100 ML IV + SPIKE MINIBAG* 100 ML IV SCH (09:57)
[2019-03-12] MEDS: PROTONIX INJ 40 MG VIAL IVP SCH (09:57)
[2019-03-12] MEDS: LOVENOX INJ 30 MG SYR SC SCH (09:58)
--- NOTE | 2019-03-12 10:14 | RAD ---
HISTORY: Shortness of breath Study: Portable chest Comparison:02/13/2016 Findings: The heart is normal. The pulmonary vessels are slightly engorged centrally and more prominent . The lungs are hyperinflated and emphysematous with hazy interstitial prominence along the lung bases which is more apparent . There is minimal blunting of the costophrenic sulci which is more apparent . There is biapical fibrosis and scarring which is unchanged. IMPRESSION: Mild central pulmonary congestion. COPD with questionable early bibasilar infiltrates or interstitial edema. Tiny bibasilar pleural effusions. Reported By:
[2019-03-12] MEDS: ASPIRIN EC 81 MG PO SCH (10:19)
[2019-03-12 10:54] LABS: PLATELET MORPHOLOGY COMMENT NORMAL (NORMAL)
--- NOTE | 2019-03-12 10:57 | RAD ---
HISTORY: Abdominal pain. Prior surgical history of right nephrectomy. Study: KUB Comparison: No priors Findings: Lung bases are clear. There is stool present throughout the colon. Air is seen at the level of the rectum. Very mild gaseous distention of small bowel loops is seen nonspecific pattern. Findings have the appearance of a mild small ileus. No evidence of bowel obstruction is seen no opaque stone is identified. There is mild mid lumbar scoliosis, convex to the patient's right side. IMPRESSION: Mild small bowel ileus pattern. No evidence of obstruction is seen. Reported By:
[2019-03-12] MEDS ORDERED: MILK OF MAGNESIA PO PRN (14:24)
[2019-03-12] MEDS ORDERED: NS 1/2 1000 ML IV 1,000 ML IV ONE (18:11)
[2019-03-12] MEDS: LASIX IVP SCH (18:12)
[2019-03-12] MEDS: NS 1/2 1000 ML IV 1,000 ML IV SCH (18:12)
[2019-03-12] MEDS: COLACE CAP 100 MG PO SCH (22:22)
[2019-03-13] MEDS: DUONEB 0.5 MG/3 MG (3 mL) NEB SCH ×6 (00:53→21:27)
[2019-03-13 05:39] LABS: ABG BASE EXCESS 25.8 mmol/L (-2.0-2.0)
[2019-03-13 05:40] LABS: ABG ALLEN TEST P
[2019-03-13 05:59] LABS: BASOPHILS % (AUTO) 0.2 % (0.2-1.0); HEMOGLOBIN 11.6 g/dL (12.0-16.0); LYMPHOCYTES # (AUTO) 0.2 X10^3/uL (1.3-2.9); LYMPHOCYTES % (AUTO) 3.2 % (21.0-51.0); MEAN CORPUSCULAR HEMOGLOBIN 29.4 pg (27.0-34.0); MEAN CORPUSCULAR HGB CONC 33.1 g/dL (33.0-35.0); MEAN CORPUSCULAR VOLUME 88.6 fL (80.0-100.0); MEAN PLATELET VOLUME 7.9 fL (7.4-11.0); MONOCYTES # (AUTO) 0.5 x10^3/uL (0.3-0.8); NEUTROPHILS # (AUTO) 6.1 x10^3/uL (2.2-4.8); NEUTROPHILS % (AUTO) 89.6 % (42.0-75.0); PLATELET COUNT 180 X10^3/uL (150.0-450.0); RED BLOOD COUNT 3.95 X10^6/uL (3.5-5.4); RED CELL DISTRIBUTION WIDTH 14.2 % (11.6-16.5); WHITE BLOOD COUNT 6.8 X10^3/uL (3.6-10.0)
[2019-03-13] MEDS: LASIX IVP SCH (05:59)
[2019-03-13] MEDS: SOLU-Medrol 40 MG VIAL IVP SCH ×3 (06:01→22:00)
[2019-03-13 06:17] LABS: ALANINE AMINOTRANSFERASE 21 Units/L (12-78); ALBUMIN 2.9 g/dL (3.4-5.0); ALKALINE PHOSPHATASE 51 Units/L (46-116); ASPARTATE AMINO TRANSFERASE 28 Units/L (15-37); BLOOD UREA NITROGEN 37 mg/dL (7-18); CALCIUM 8.6 mg/dL (8.5-10.1); CHLORIDE 103 mmol/L (98-107); COR CA(FOR HYPOALB) 9.5 mg/dL (8.5-10.1); SODIUM 146 mmol/L (136-145); TOTAL PROTEIN 6.6 g/dL (6.4-8.2); eGFR NON BLACK RACES > 60 (>60)
[2019-03-13 06:21] LABS: CARBON DIOXIDE 42.7 mmol/L (21-32)
[2019-03-13] MEDS: BROVANA IN SCH ×2 (09:34→21:28)
[2019-03-13] MEDS: PULMICORT NEB TX 0.5 MG NEB SCH ×2 (09:42→21:27)
[2019-03-13] MEDS ORDERED: NORVASC TAB 2.5 MG ONE (09:53)
[2019-03-13] MEDS: FORTAZ or TAZICEF VIAL INJ 1 G in NS 100 ML IV + SPIKE MINIBAG* 100 ML IV SCH (09:56)
[2019-03-13] MEDS: ROBITUSSIN DM PO SCH ×4 (09:56→20:29)
[2019-03-13] MEDS: NORVASC TAB 2.5 MG PO SCH (09:57)
[2019-03-13] MEDS: PROTONIX INJ 40 MG VIAL IVP SCH (09:57)
--- NOTE | 2019-03-13 10:03 | RAD ---
HISTORY: Shortness of breath Study: Chest AP portable Comparison: 03/12/2019 Findings: The heart is within normal limits in size. The xavier are normal. The aorta is calcified. The lungs are hyperinflated consistent with COPD. No acute alveolar infiltrates are identified. Mild interstitial changes are present in the lower lobes bilaterally. No definite pleural effusions are identified. IMPRESSION: Lungs hyperinflated but free of acute alveolar infiltrates. Consistent with COPD in the appropriate clinical setting Reported By:
[2019-03-13] MEDS: ASPIRIN EC 81 MG PO SCH (10:30)
[2019-03-13] MEDS: ACCUNEB 1.25 MG NEBULE NEB SCH (12:15)
--- NOTE | 2019-03-13 12:27 | PCM.PROG ---
Progress Note - Progress Note for Day of Date of Exam: 03/13/19 - Subjective Subjective: Lian is a 73-year-old white female with a history of emphysema, chronic respiratory failure, and she was admitted with acute on chronic respiratory failure with hypercapnia and chronic obstructive pulmonary disease exacerbation. Since admission, the patient has been on aggressive respiratory therapy including IV steroids, supplemental oxygen, and using BiPAP. The patient has had several ABGs. She is on Brovana and Budesonide, as well as Duonebs every four hours. The patient continues to be lethargic, but improving alertness this am. Pt sitting up, drinking coffee.. She will answer questions appropriately. Yesterday afternoon, the patient stated that she wanted to sign a limited do not resuscitate, and then refused to sign the do not resuscitate. She did state this morning to myself, as well as nurse in Case Management that if she had to be intubated for treatment of pulmonary arrest she would agree at that time and if not, the patient is requesting to continue with BiPAP as needed. She states that she really wants to go home. The patient does not want to be transferred to another facility. She is still on steroids today. - Past Medical Family Social History Past Med/Fam/Surg Hx: No changes since H&P Allergies: Allergies No Known Drug Allergies Allergy (Verified 03/08/19 12:35) - Review of Systems ROS: No change since H&P - Vital Signs and I&O's Vital Signs: Temperature 98.4 F Pulse Rate [Left Brachial] 87 Pulse Rate 89 Respiratory Rate 30 Blood Pressure [Right Calf] 173/77 Blood Pressure [Left Calf] 85/50 Blood Pressure [Left Arm] 165/74 Blood Pressure [Right Arm] 118/58 Blood Pressure 150/68 O2 Sat by Pulse Oximetry 94 Intake and Output: Intake & Output 03/11/19 03/12/19 03/13/19 03/14/19 11:59 11:59 11:59 11:59 Intake Total 2218 / 2218 2665 / 2665 1348 / 1348 Output Total 200 / 200 Balance 2017 2665 / 2665 1348 / 1348 - Physical Exam Oriented: Normal Eyes: Normal Ear: Normal Nose: Normal Throat: Dry Respiratory: Diminished (MODERATE RESPIRATORY DISTRESS), Wheezes, Rhonchi Cardiovascular: Tachycardia : Normal Auscultation: Bowel Sounds: Normal Tenderness: Normal Skin: Decreased Turgur Musculoskeletal: Back:Lumbar Psychiatric: Anxiety Affect: Anxious Speech Pattern: Clear, Appropriate - Laboratory and Diagnostics Result Diagrams: 03/13/19 04:42 03/13/19 04:42 Labs: 03/08/19 14:30 Blood Blood Culture - Preliminary 03/08/19 14:20 Blood Blood Culture - Preliminary 03/08/19 14:24 Sputum - Expectorated Sputum Sputum Culture - Final 03/08/19 14:24 Sputum - Expectorated Sputum - Final Laboratory WBC 6.8 X10^3/uL (3.6-10.0) 03/13/19 04:42 RBC 3.95 X10^6/uL (3.5-5.4) 03/13/19 04:42 Hgb 11.6 g/dL (12.0-16.0) L 03/13/19 04:42 Hct 35.0 % (36.0-47.0) L 03/13/19 04:42 MCV 88.6 fL (80.0-100.0) 03/13/19 04:42 MCH 29.4 pg (27.0-34.0) 03/13/19 04:42 MCHC 33.1 g/dL (33.0-35.0) 03/13/19 04:42 RDW 14.2 % (11.6-16.5) 03/13/19 04:42 Plt Count 180 X10^3/uL (150.0-450.0) 03/13/19 04:42 Plt Count Comment Decreased (ADEQUATE) A 03/12/19 08:47 MPV 7.9 fL (7.4-11.0) 03/13/19 04:42 Neut % (Auto) 89.6 % (42.0-75.0) H 03/13/19 04:42 Lymph % (Auto) 3.2 % (21.0-51.0) L 03/13/19 04:42 [place] % (Auto) 7.0 % (0.0-13.0) 03/13/19 04:42 Eos % (Auto) 0.0 % (0.9-2.9) L 03/13/19 04:42 Baso % (Auto) 0.2 % (0.2-1.0) 03/13/19 04:42 Neut # (Auto) 6.1 x10^3/uL (2.2-4.8) H 03/13/19 04:42 Lymph # (Auto) 0.2 X10^3/uL (1.3-2.9) L 03/13/19 04:42 [place] # (Auto) 0.5 x10^3/uL (0.3-0.8) 03/13/19 04:42 Eos # (Auto) 0.0 x10^3/uL (0.0-0.2) 03/13/19 04:42 Baso # (Auto) 0.0 X10^3/uL (0.0-0.1) 03/13/19 04:42 Absolute Nucleated RBC 0.3 /100WBC 03/13/19 04:42 Total Counted 100 03/12/19 08:47 Neutrophils % (Manual) 83 % (39-76) H 03/12/19 08:47 Lymphocytes % (Manual) 12 % (13-43) L 03/12/19 08:47 Monocytes % (Manual) 4 % (4-9) 03/12/19 08:47 Eosinophils % (Manual) 1 % (0-6) 03/12/19 08:47 Plt Morphology Comment Normal (NORMAL) 03/12/19 08:47 RBC Morphology Normal (NORMAL) 03/12/19 08:47 PT 11.8 SECONDS (11.8-14.3) 03/08/19 14:20 INR Target Range - 03/08/19 14:20 INR 0.90 (0.8-1.3) 03/08/19 14:20 APTT 31.5 SECONDS (22.9-36.5) 03/08/19 14:20 PTT Comment - 03/08/19 14:20 Sample Site Rr 03/13/19 05:00 ABG pH 7.440 (7.35-7.45) 03/13/19 05:00 ABG pCO2 81.0 mmHg (35.0-45.0) H* 03/13/19 05:00 ABG pO2 57.0 mmHg (80.0-100.0) L 03/13/19 05:00 ABG HCO3 55.0 mmol/L (22-26) H* 03/13/19 05:00 ABG O2 Saturation 90.0 % (90-100) 03/13/19 05:00 ABG Base Excess 25.8 mmol/L (-2.0-2.0) H 03/13/19 05:00 Ramin Test P 03/13/19 05:00 A-a Gradient 41.0 mmHg 03/13/19 05:00 FiO2 28.0 03/13/19 05:00 Blood Gas Comments Lizandro well 03/13/19 05:00 Sodium 146 mmol/L (136-145) H 03/13/19 04:42 Corrected Sodium TNP 03/13/19 04:42 Potassium 3.9 mmol/L (3.5-5.1) 03/13/19 04:42 Chloride 103 mmol/L (98-107) 03/13/19 04:42 Carbon Dioxide 42.7 mmol/L (21-32) H* 03/13/19 04:42 BUN 37 mg/dL (7-18) H 03/13/19 04:42 Creatinine 0.90 mg/dL (0.55-1.02) 03/13/19 04:42 Est GFR (MDRD) Af Amer > 60 (>60) 03/13/19 04:42 Est GFR (MDRD) Non-Af > 60 (>60) 03/13/19 04:42 Glucose 110 mg/dL (65-99) H 03/13/19 04:42 Lactic Acid 1.0 mmol/L (0.4-2.0) 03/08/19 14:20 Calcium 8.6 mg/dL (8.5-10.1) 03/13/19 04:42 Corrected Calcium 9.5 mg/dL (8.5-10.1) 03/13/19 04:42 Magnesium 2.1 mg/dL (1.7-2.9) 03/08/19 14:20 Total Bilirubin 0.40 mg/dL (0.2-1.0) 03/13/19 04:42 AST 28 Units/L (15-37) 03/13/19 04:42 ALT 21 Units/L (12-78) 03/13/19 04:42 Alkaline Phosphatase 51 Units/L (46-116) 03/13/19 04:42 Creatine Kinase 38 Units/L (26-192) 03/09/19 12:32 CK-MB (CK-2) 1.3 ng/mL (0-4.0) 03/09/19 12:32 CK/CKMB % Calc 3.4 % (<4) 03/09/19 12:32 Troponin I 0.03 ng/mL (0-1.5) 03/09/19 12:32 C-Reactive Protein 42.20 mg/L (0-3.0) H 03/08/19 14:20 B-Natriuretic Peptide 252 pg/mL (0-79) H 03/08/19 14:20 Total Protein 6.6 g/dL (6.4-8.2) 03/13/19 04:42 Albumin 2.9 g/dL (3.4-5.0) L 03/13/19 04:42 Globulin 3.7 g/dL (2.5-4.5) 03/13/19 04:42 Albumin/Globulin Ratio 0.8 Ratio (1.1-2.1) L 03/13/19 04:42 Specimen Type Catherized urine 03/09/19 09:25 Urine Color Yellow (YELLOW) 03/09/19 09:25 Urine Appearance Slightly hazy (CLEAR) 03/09/19 09:25 Urine pH 5.0 (5.0 - 8.0) 03/09/19 09:25 Ur Specific [place] 1.020 (1.000-1.030) 03/09/19 09:25 Urine Protein 2+ (NEGATIVE) 03/09/19 09:25 Urine Glucose (UA) Negative (NEGATIVE) 03/09/19 09:25 Urine Ketones Negative (NEGATIVE) 03/09/19 09:25 Urine Occult Blood Negative (NEGATIVE) 03/09/19 09:25 Urine Nitrite Negative (NEGATIVE) 03/09/19 09:25 Urine Bilirubin Negative (NEGATIVE) 03/09/19 09:25 Urine Urobilinogen Normal (NORMAL) 03/09/19 09:25 Ur Leukocyte Esterase Negative (NEGATIVE) 03/09/19 09:25 Urine RBC 0-2 /HPF (0-3) 03/09/19 09:25 Urine WBC 0-2 /HPF (0-5) 03/09/19 09:25 Ur Squamous Epith Cells Rare /HPF (NEGATIVE) 03/09/19 09:25 Uric Acid Crystals Many /HPF (NEGATIVE) 03/09/19 09:25 Triple Phos Crystals Rare /HPF (NEGATIVE) 03/09/19 09:25 Amorphous Sediment 1+ /HPF (NEGATIVE) 03/09/19 09:25 Urine Bacteria Trace /HPF (NEGATIVE) 03/09/19 09:25 Hyaline Casts Rare /LPF (NEGATIVE) 03/08/19 15:04 Urine Mucus Few /HPF (NEGATIVE) 03/08/19 15:04 Ur Culture Indicated? No/not indicated 03/09/19 09:25 - Plan (1) Acute respiratory distress Status: Acute Plan: REPEAT CE, CONTINUOUS CARDIAC MONITORING. BIPAP PRN, REPEAT ABG. SUPPLEMENTAL O2, IV ANTIBIOTICS, IV STEROIDS. RESP THERAPY, REPEAT STAT CXR AND IN THE AM, BLOOD AND SPUTUM CUTLURES ON ADMISSION. VERIFY HOME MEDICATION, CONTINOUS CARDIAC MONITORING (2) COPD (chronic obstructive pulmonary disease) with acute bronchitis Status: Acute (3) Anxiety Status: Chronic (4) Hepatitis C Status: Chronic (5) Osteoarthritis Status: Chronic
[2019-03-13] MEDS: NS 1/2 1000 ML IV 1,000 ML IV SCH (17:51)
[2019-03-13] MEDS: COLACE CAP 100 MG PO SCH (20:29)
[2019-03-13] MEDS: XANAX PO PRN (20:30)
[2019-03-13] MEDS ORDERED: LOPRESSOR INJ 5 MG AMP IVP ONE ×2 (21:13→22:52)
[2019-03-13] MEDS ORDERED: LOPRESSOR INJ 5 MG AMP ONE (21:14)
[2019-03-13 22:27] LABS: CKMB % 2.6 % (<4); CREATINE KINASE 39 Units/L (26-192); CREATINE KINASE MB < 1.0 ng/mL (0-4.0); TROPONIN I 0.04 ng/mL (0-1.5)
[2019-03-14] MEDS: DUONEB 0.5 MG/3 MG (3 mL) NEB SCH ×6 (01:02→21:30)
[2019-03-14 06:06] LABS: BASOPHILS % (AUTO) 0.1 % (0.2-1.0); EOSINOPHILS % (AUTO) 0.1 % (0.9-2.9); LYMPHOCYTES # (AUTO) 0.3 X10^3/uL (1.3-2.9); LYMPHOCYTES % (AUTO) 3.6 % (21.0-51.0); MEAN CORPUSCULAR HGB CONC 33.4 g/dL (33.0-35.0); MEAN CORPUSCULAR VOLUME 89.8 fL (80.0-100.0); MEAN PLATELET VOLUME 7.6 fL (7.4-11.0); MONOCYTES # (AUTO) 0.4 x10^3/uL (0.3-0.8); MONOCYTES % (AUTO) 5.7 % (0.0-13.0); NEUTROPHILS % (AUTO) 90.5 % (42.0-75.0); PLATELET COUNT 189 X10^3/uL (150.0-450.0); RED BLOOD COUNT 4.01 X10^6/uL (3.5-5.4); RED CELL DISTRIBUTION WIDTH 13.9 % (11.6-16.5); WHITE BLOOD COUNT 7.7 X10^3/uL (3.6-10.0)
[2019-03-14 06:19] LABS: ALANINE AMINOTRANSFERASE 25 Units/L (12-78); ALBUMIN 2.9 g/dL (3.4-5.0); ALKALINE PHOSPHATASE 52 Units/L (46-116); ASPARTATE AMINO TRANSFERASE 34 Units/L (15-37); BLOOD UREA NITROGEN 36 mg/dL (7-18); CALCIUM 8.5 mg/dL (8.5-10.1); CHLORIDE 97 mmol/L (98-107); COR CA(FOR HYPOALB) 9.4 mg/dL (8.5-10.1); CREATININE 0.84 mg/dL (0.55-1.02); SODIUM 143 mmol/L (136-145); TOTAL PROTEIN 6.3 g/dL (6.4-8.2); eGFR NON BLACK RACES > 60 (>60)
[2019-03-14] MEDS: SOLU-Medrol 40 MG VIAL IVP SCH ×3 (06:20→22:06)
[2019-03-14 06:24] LABS: CARBON DIOXIDE > 45.0 mmol/L (21-32)
[2019-03-14 06:47] LABS: BAND NEUTROPHILS % 3 % (0-10); PLATELET MORPHOLOGY COMMENT NORMAL (NORMAL)
[2019-03-14] MEDS ORDERED: NORVASC TAB 2.5 MG ONE ×2 (08:35→10:05)
[2019-03-14] MEDS: NORVASC TAB 2.5 MG PO SCH ×2 (08:59→14:55)
[2019-03-14] MEDS: ASPIRIN EC 81 MG PO SCH (08:59)
[2019-03-14] MEDS: PROTONIX INJ 40 MG VIAL IVP SCH (08:59)
[2019-03-14] MEDS: FORTAZ or TAZICEF VIAL INJ 1 G in NS 100 ML IV + SPIKE MINIBAG* 100 ML IV SCH (09:00)
[2019-03-14] MEDS: ROBITUSSIN DM PO SCH (09:00)
[2019-03-14] MEDS: PULMICORT NEB TX 0.5 MG NEB SCH ×2 (09:39→21:31)
[2019-03-14] MEDS: ACCUNEB 1.25 MG NEBULE NEB SCH (09:39)
[2019-03-14] MEDS: BROVANA IN SCH ×2 (10:30→21:43)
--- NOTE | 2019-03-14 12:28 | PCM.PROG ---
Progress Note Progress Note for Day of Date of Exam: 03/14/19 Subjective Subjective: Patient seen at bedside this AM, She is a 73-year-old female with a history of emphysema, chronic respiratory failure, and she was admitted with acute on chronic respiratory failure with hypercapnia and chronic obstructive pulmonary disease exacerbation. Patient reports improvement in her breathing, currently on 2.5 L nasal canula, she uses continuous 2L at home. Overnight, she had an episode of atrial fibrillation with HR in 170s. She received 2 doses of metoprolol 5 mg IV and she was back in sinus rhythm with HR in 70s. She was completely asymptomatic and sleeping during this episode. She denies prev hx of atrial fibrillation but does report episode of elevated HR last time due to taking robitussin. She states cough medications cause her heart rate to go up. Denies chest pain or pressure. Denies fever or chills. Past Medical Family Social History Past Med/Fam/Surg Hx: No changes since H&P Allergies: Allergies No Known Drug Allergies Allergy (Verified 03/08/19 12:35) Review of Systems ROS: No change since H&P Vital Signs and I&O's Vital Signs: Temperature 98.9 F Pulse Rate [Left Brachial] 85 Pulse Rate 77 Respiratory Rate 20 Blood Pressure [Right Calf] 173/77 Blood Pressure [Left Calf] 85/50 Blood Pressure [Left Arm] 163/76 Blood Pressure [Right Arm] 118/58 Blood Pressure 174/75 O2 Sat by Pulse Oximetry 100 Intake and Output: Intake & Output 03/11/19 03/12/19 03/13/19 03/14/19 23:59 23:59 23:59 23:59 Intake Total 2421 / 2421 1785 / 1785 1577 / 1577 213 / 213 Balance 2421 / 2421 1785 / 1785 1577 / 1577 213 / 213 Physical Exam Oriented: Normal (frail cachectic female ) Eyes: Normal Respiratory: Diminished (MODERATE RESPIRATORY DISTRESS) and Rhonchi Cardiovascular: Normal and Tachycardia Auscultation: Bowel Sounds: Normal Tenderness: Normal Skin: Decreased Turgur Musculoskeletal: Back:Lumbar Psychiatric: Normal Mood Description: Calm Affect: Normal Speech Pattern: Clear and Appropriate Laboratory and Diagnostics Result Diagrams: 03/14/19 05:20 03/14/19 05:20 Labs: 03/08/19 14:30 Blood Blood Culture - Final 03/08/19 14:20 Blood Blood Culture - Final 03/08/19 14:24 Sputum - Expectorated Sputum Sputum Culture - Final 03/08/19 14:24 Sputum - Expectorated Sputum - Final Laboratory WBC 7.7 X10^3/uL (3.6-10.0) 03/14/19 05:20 RBC 4.01 X10^6/uL (3.5-5.4) 03/14/19 05:20 Hgb 12.0 g/dL (12.0-16.0) 03/14/19 05:20 Hct 36.0 % (36.0-47.0) 03/14/19 05:20 MCV 89.8 fL (80.0-100.0) 03/14/19 05:20 MCH 30.0 pg (27.0-34.0) 03/14/19 05:20 MCHC 33.4 g/dL (33.0-35.0) 03/14/19 05:20 RDW 13.9 % (11.6-16.5) 03/14/19 05:20 Plt Count 189 X10^3/uL (150.0-450.0) 03/14/19 05:20 Plt Count Comment Adequate (ADEQUATE) 03/14/19 05:20 MPV 7.6 fL (7.4-11.0) 03/14/19 05:20 Neut % (Auto) 90.5 % (42.0-75.0) H 03/14/19 05:20 Lymph % (Auto) 3.6 % (21.0-51.0) L 03/14/19 05:20 [place] % (Auto) 5.7 % (0.0-13.0) 03/14/19 05:20 Eos % (Auto) 0.1 % (0.9-2.9) L 03/14/19 05:20 Baso % (Auto) 0.1 % (0.2-1.0) L 03/14/19 05:20 Neut # (Auto) 7.0 x10^3/uL (2.2-4.8) H 03/14/19 05:20 Lymph # (Auto) 0.3 X10^3/uL (1.3-2.9) L 03/14/19 05:20 [place] # (Auto) 0.4 x10^3/uL (0.3-0.8) 03/14/19 05:20 Eos # (Auto) 0.0 x10^3/uL (0.0-0.2) 03/14/19 05:20 Baso # (Auto) 0.0 X10^3/uL (0.0-0.1) 03/14/19 05:20 Absolute Nucleated RBC 0.1 /100WBC 03/14/19 05:20 Total Counted 100 03/14/19 05:20 Neutrophils % (Manual) 88 % (39-76) H 03/14/19 05:20 Band Neutrophils % 3 % (0-10) 03/14/19 05:20 Lymphocytes % (Manual) 4 % (13-43) L 03/14/19 05:20 Monocytes % (Manual) 5 % (4-9) 03/14/19 05:20 Eosinophils % (Manual) 1 % (0-6) 03/12/19 08:47 Plt Morphology Comment Normal (NORMAL) 03/14/19 05:20 RBC Morphology Normal (NORMAL) 03/14/19 05:20 PT 11.8 SECONDS (11.8-14.3) 03/08/19 14:20 INR Target Range - 03/08/19 14:20 INR 0.90 (0.8-1.3) 03/08/19 14:20 APTT 31.5 SECONDS (22.9-36.5) 03/08/19 14:20 PTT Comment - 03/08/19 14:20 Sample Site Rr 03/13/19 05:00 ABG pH 7.440 (7.35-7.45) 03/13/19 05:00 ABG pCO2 81.0 mmHg (35.0-45.0) H* 03/13/19 05:00 ABG pO2 57.0 mmHg (80.0-100.0) L 03/13/19 05:00 ABG HCO3 55.0 mmol/L (22-26) H* 03/13/19 05:00 ABG O2 Saturation 90.0 % (90-100) 03/13/19 05:00 ABG Base Excess 25.8 mmol/L (-2.0-2.0) H 03/13/19 05:00 Ramin Test P 03/13/19 05:00 A-a Gradient 41.0 mmHg 03/13/19 05:00 FiO2 28.0 03/13/19 05:00 Blood Gas Comments Lizandro well 03/13/19 05:00 Sodium 143 mmol/L (136-145) 03/14/19 05:20 Corrected Sodium TNP 03/14/19 05:20 Potassium 3.8 mmol/L (3.5-5.1) 03/14/19 05:20 Chloride 97 mmol/L (98-107) L 03/14/19 05:20 Carbon Dioxide > 45.0 mmol/L (21-32) H* 03/14/19 05:20 BUN 36 mg/dL (7-18) H 03/14/19 05:20 Creatinine 0.84 mg/dL (0.55-1.02) 03/14/19 05:20 Est GFR (MDRD) Af Amer > 60 (>60) 03/14/19 05:20 Est GFR (MDRD) Non-Af > 60 (>60) 03/14/19 05:20 Glucose 110 mg/dL (65-99) H 03/14/19 05:20 Lactic Acid 1.0 mmol/L (0.4-2.0) 03/08/19 14:20 Calcium 8.5 mg/dL (8.5-10.1) 03/14/19 05:20 Corrected Calcium 9.4 mg/dL (8.5-10.1) 03/14/19 05:20 Magnesium 2.1 mg/dL (1.7-2.9) 03/08/19 14:20 Total Bilirubin 0.60 mg/dL (0.2-1.0) 03/14/19 05:20 AST 34 Units/L (15-37) 03/14/19 05:20 ALT 25 Units/L (12-78) 03/14/19 05:20 Alkaline Phosphatase 52 Units/L (46-116) 03/14/19 05:20 Creatine Kinase 39 Units/L (26-192) 03/13/19 21:45 CK-MB (CK-2) < 1.0 ng/mL (0-4.0) 03/13/19 21:45 CK/CKMB % Calc 2.6 % (<4) 03/13/19 21:45 Troponin I 0.04 ng/mL (0-1.5) 03/13/19 21:45 C-Reactive Protein 42.20 mg/L (0-3.0) H 03/08/19 14:20 B-Natriuretic Peptide 252 pg/mL (0-79) H 03/08/19 14:20 Total Protein 6.3 g/dL (6.4-8.2) L 03/14/19 05:20 Albumin 2.9 g/dL (3.4-5.0) L 03/14/19 05:20 Globulin 3.4 g/dL (2.5-4.5) 03/14/19 05:20 Albumin/Globulin Ratio 0.9 Ratio (1.1-2.1) L 03/14/19 05:20 Specimen Type Catherized urine 03/09/19 09:25 Urine Color Yellow (YELLOW) 03/09/19 09:25 Urine Appearance Slightly hazy (CLEAR) 03/09/19 09:25 Urine pH 5.0 (5.0 - 8.0) 03/09/19 09:25 Ur Specific [place] 1.020 (1.000-1.030) 03/09/19 09:25 Urine Protein 2+ (NEGATIVE) 03/09/19 09:25 Urine Glucose (UA) Negative (NEGATIVE) 03/09/19 09:25 Urine Ketones Negative (NEGATIVE) 03/09/19 09:25 Urine Occult Blood Negative (NEGATIVE) 03/09/19 09:25 Urine Nitrite Negative (NEGATIVE) 03/09/19 09:25 Urine Bilirubin Negative (NEGATIVE) 03/09/19 09:25 Urine Urobilinogen Normal (NORMAL) 03/09/19 09:25 Ur Leukocyte Esterase Negative (NEGATIVE) 03/09/19 09:25 Urine RBC 0-2 /HPF (0-3) 03/09/19 09:25 Urine WBC 0-2 /HPF (0-5) 03/09/19 09:25 Ur Squamous Epith Cells Rare /HPF (NEGATIVE) 03/09/19 09:25 Uric Acid Crystals Many /HPF (NEGATIVE) 03/09/19 09:25 Triple Phos Crystals Rare /HPF (NEGATIVE) 03/09/19 09:25 Amorphous Sediment 1+ /HPF (NEGATIVE) 03/09/19 09:25 Urine Bacteria Trace /HPF (NEGATIVE) 03/09/19 09:25 Hyaline Casts Rare /LPF (NEGATIVE) 03/08/19 15:04 Urine Mucus Few /HPF (NEGATIVE) 03/08/19 15:04 Ur Culture Indicated? No/not indicated 03/09/19 09:25 Plan (1) Acute respiratory distress: Status: Acute Plan: Acute on chronic respiratory failure due to Severe COPD and fibrosis. Currently on baseline home oxygen 2-3L, continue steroids and abx. Aggressive pulmonary toilet. CXR: chronic COPD changes, pulmonary congestion. (2) COPD (chronic obstructive pulmonary disease) with acute bronchitis: Status: Acute (3) Metabolic alkalosis with respiratory acidosis: Status: Acute Plan: chronic due to underlying severe COPD. Bipap qHS (4) Idiopathic interstitial fibrosis: Status: Acute (5) Accelerated hypertension: Status: Acute Plan: BP elevated this AM: 185/74, will increase Norvasc to 5 mg. (6) Atrial fibrillation: Status: Acute Qualifiers: Qualified Code(s): I48.91 - Unspecified atrial fibrillation Plan: transient overnight, HR in 170s, received 2 doses of metoprolol 5 mg IV, currently in NSR with HR in 70-80s. Repeat EKG: normal sinus, continue cardiac monitoring. Patient reports similar episode after taking cough syrup during prev admission. Will continue to monitor, DC cough syrup. Patient asymptomatic. (7) Anxiety: Status: Chronic (8) Hepatitis C: Status: Chronic Qualifiers: Hepatic coma status: without hepatic coma Viral hepatitis chronicity: chronic Qualified Code(s): B18.2 - Chronic viral hepatitis C (9) Osteoarthritis: Status: Chronic Qualifiers: Osteoarthritis location: unspecified site Osteoarthritis type: unspecified Qualified Code(s): M19.90 - Unspecified osteoarthritis, unspecified site
[2019-03-14] MEDS: NS 1/2 1000 ML IV 1,000 ML IV SCH (17:12)
[2019-03-14] MEDS: XANAX PO PRN (20:45)
[2019-03-14] MEDS: COLACE CAP 100 MG PO SCH (20:45)
[2019-03-15] MEDS: DUONEB 0.5 MG/3 MG (3 mL) NEB SCH ×3 (00:05→08:35)
[2019-03-15] MEDS ORDERED: NS 1/2 1000 ML IV 1,000 ML IV ONE (04:47)
[2019-03-15] MEDS: NS 1/2 1000 ML IV 1,000 ML IV SCH ×2 (05:00→17:59)
[2019-03-15] MEDS: SOLU-Medrol 40 MG VIAL IVP SCH (05:56)
[2019-03-15 06:34] LABS: BASOPHILS % (AUTO) 0.3 % (0.2-1.0); HEMATOCRIT 37.3 % (36.0-47.0); HEMOGLOBIN 12.2 g/dL (12.0-16.0); LYMPHOCYTES # (AUTO) 0.3 X10^3/uL (1.3-2.9); LYMPHOCYTES % (AUTO) 2.4 % (21.0-51.0); MEAN CORPUSCULAR HEMOGLOBIN 29.3 pg (27.0-34.0); MEAN CORPUSCULAR HGB CONC 32.8 g/dL (33.0-35.0); MEAN CORPUSCULAR VOLUME 89.3 fL (80.0-100.0); MEAN PLATELET VOLUME 7.8 fL (7.4-11.0); MONOCYTES # (AUTO) 0.7 x10^3/uL (0.3-0.8); MONOCYTES % (AUTO) 5.8 % (0.0-13.0); NEUTROPHILS # (AUTO) 10.4 x10^3/uL (2.2-4.8); NEUTROPHILS % (AUTO) 91.5 % (42.0-75.0); PLATELET COUNT 206 X10^3/uL (150.0-450.0); RED BLOOD COUNT 4.17 X10^6/uL (3.5-5.4); WHITE BLOOD COUNT 11.3 X10^3/uL (3.6-10.0)
[2019-03-15 06:52] LABS: ALANINE AMINOTRANSFERASE 29 Units/L (12-78); ALKALINE PHOSPHATASE 60 Units/L (46-116); ASPARTATE AMINO TRANSFERASE 31 Units/L (15-37); BLOOD UREA NITROGEN 35 mg/dL (7-18); CALCIUM 8.6 mg/dL (8.5-10.1); CHLORIDE 96 mmol/L (98-107); COR CA(FOR HYPOALB) 9.4 mg/dL (8.5-10.1); COR NA(FOR HYPERGLY) 142 mmol/L (136-145); CREATININE 0.87 mg/dL (0.55-1.02); SODIUM 141 mmol/L (136-145); TOTAL PROTEIN 6.5 g/dL (6.4-8.2); eGFR NON BLACK RACES > 60 (>60)
[2019-03-15 06:54] LABS: BAND NEUTROPHILS % 1 % (0-10); PLATELET MORPHOLOGY COMMENT NORMAL (NORMAL)
[2019-03-15 07:05] LABS: CARBON DIOXIDE > 45.0 mmol/L (21-32)
[2019-03-15] MEDS: ACCUNEB 1.25 MG NEBULE NEB SCH (08:34)
[2019-03-15] MEDS: PULMICORT NEB TX 0.5 MG NEB SCH ×3 (08:35→21:15)
[2019-03-15] MEDS: BROVANA IN SCH (08:59)
[2019-03-15] MEDS ORDERED: NORVASC TAB 2.5 MG ONE (09:09)
[2019-03-15] MEDS: ASPIRIN EC 81 MG PO SCH (09:20)
[2019-03-15] MEDS: NORVASC TAB 2.5 MG PO SCH (09:21)
[2019-03-15] MEDS ORDERED: LOPRESSOR INJ 5 MG AMP ONE ×2 (09:27→19:03)
[2019-03-15] MEDS: LOVENOX INJ 30 MG SYR SC SCH (09:30)
[2019-03-15] MEDS: FORTAZ or TAZICEF VIAL INJ 1 G in NS 100 ML IV + SPIKE MINIBAG* 100 ML IV SCH (09:30)
[2019-03-15] MEDS: PROTONIX INJ 40 MG VIAL IVP SCH (09:31)
[2019-03-15] MEDS: XOPENEX 1.25 MG/3 ML NEBULE NEB SCH ×2 (12:18→17:16)
--- NOTE | 2019-03-15 12:28 | PCM.PROG ---
Progress Note Progress Note for Day of Date of Exam: 03/15/19 Subjective Subjective: Patient's HR jumped to 190s, irregular during rounds. She had received 2 different breathing treatments prior to this. She denied chest pain, reported palpitations. Stat EKG showed atrial fibrillation, within 5 mins HR normalized to 90s and back in sinus rhythm. Patient states she had similar episode during prev hospitalization after taking cough syrup. She states her breathing is back to baseline, on 2.5 L oxygen which she uses at home. She did not use the BiPAP last night. Past Medical Family Social History Past Med/Fam/Surg Hx: No changes since H&P Allergies: Allergies No Known Drug Allergies Allergy (Verified 03/08/19 12:35) Review of Systems ROS: No change since H&P Vital Signs and I&O's Vital Signs: Temperature 99.1 F Pulse Rate [Left Brachial] 85 Pulse Rate 92 Respiratory Rate 24 Blood Pressure [Right Calf] 173/77 Blood Pressure [Left Calf] 85/50 Blood Pressure [Left Arm] 163/76 Blood Pressure [Right Arm] 118/58 Blood Pressure 157/73 O2 Sat by Pulse Oximetry 98 Intake and Output: Intake & Output 03/12/19 03/13/19 03/14/19 03/15/19 23:59 23:59 23:59 23:59 Intake Total 1785 / 1785 1577 / 1577 1739 / 1739 313 / 313 Output Total 150 / 150 Balance 1785 / 1785 1577 / 1577 1589 / 1589 313 / 313 Physical Exam Oriented: Normal (frail cachectic female ) Eyes: Normal Ear: Normal Nose: Normal Respiratory: Diminished and Rhonchi Cardiovascular: Tachycardia Auscultation: Bowel Sounds: Normal Tenderness: Normal Skin: Decreased Turgur Musculoskeletal: Back:Lumbar Psychiatric: Normal Mood Description: Anxious Affect: Anxious Speech Pattern: Clear and Appropriate Laboratory and Diagnostics Result Diagrams: 03/15/19 06:11 03/15/19 06:11 Labs: 03/08/19 14:30 Blood Blood Culture - Final 03/08/19 14:20 Blood Blood Culture - Final 03/08/19 14:24 Sputum - Expectorated Sputum Sputum Culture - Final 03/08/19 14:24 Sputum - Expectorated Sputum - Final Laboratory WBC 11.3 X10^3/uL (3.6-10.0) H 03/15/19 06:11 RBC 4.17 X10^6/uL (3.5-5.4) 03/15/19 06:11 Hgb 12.2 g/dL (12.0-16.0) 03/15/19 06:11 Hct 37.3 % (36.0-47.0) 03/15/19 06:11 MCV 89.3 fL (80.0-100.0) 03/15/19 06:11 MCH 29.3 pg (27.0-34.0) 03/15/19 06:11 MCHC 32.8 g/dL (33.0-35.0) L 03/15/19 06:11 RDW 14.0 % (11.6-16.5) 03/15/19 06:11 Plt Count 206 X10^3/uL (150.0-450.0) 03/15/19 06:11 Plt Count Comment Adequate (ADEQUATE) 03/15/19 06:11 MPV 7.8 fL (7.4-11.0) 03/15/19 06:11 Neut % (Auto) 91.5 % (42.0-75.0) H 03/15/19 06:11 Lymph % (Auto) 2.4 % (21.0-51.0) L 03/15/19 06:11 [place] % (Auto) 5.8 % (0.0-13.0) 03/15/19 06:11 Eos % (Auto) 0.0 % (0.9-2.9) L 03/15/19 06:11 Baso % (Auto) 0.3 % (0.2-1.0) 03/15/19 06:11 Neut # (Auto) 10.4 x10^3/uL (2.2-4.8) H 03/15/19 06:11 Lymph # (Auto) 0.3 X10^3/uL (1.3-2.9) L 03/15/19 06:11 [place] # (Auto) 0.7 x10^3/uL (0.3-0.8) 03/15/19 06:11 Eos # (Auto) 0.0 x10^3/uL (0.0-0.2) 03/15/19 06:11 Baso # (Auto) 0.0 X10^3/uL (0.0-0.1) 03/15/19 06:11 Absolute Nucleated RBC 0.0 /100WBC 03/15/19 06:11 Total Counted 100 03/15/19 06:11 Neutrophils % (Manual) 89 % (39-76) H 03/15/19 06:11 Band Neutrophils % 1 % (0-10) 03/15/19 06:11 Lymphocytes % (Manual) 6 % (13-43) L 03/15/19 06:11 Monocytes % (Manual) 4 % (4-9) 03/15/19 06:11 Eosinophils % (Manual) 1 % (0-6) 03/12/19 08:47 Plt Morphology Comment Normal (NORMAL) 03/15/19 06:11 RBC Morphology Normal (NORMAL) 03/15/19 06:11 PT 11.8 SECONDS (11.8-14.3) 03/08/19 14:20 INR Target Range - 03/08/19 14:20 INR 0.90 (0.8-1.3) 03/08/19 14:20 APTT 31.5 SECONDS (22.9-36.5) 03/08/19 14:20 PTT Comment - 03/08/19 14:20 Sample Site Rr 03/13/19 05:00 ABG pH 7.440 (7.35-7.45) 03/13/19 05:00 ABG pCO2 81.0 mmHg (35.0-45.0) H* 03/13/19 05:00 ABG pO2 57.0 mmHg (80.0-100.0) L 03/13/19 05:00 ABG HCO3 55.0 mmol/L (22-26) H* 03/13/19 05:00 ABG O2 Saturation 90.0 % (90-100) 03/13/19 05:00 ABG Base Excess 25.8 mmol/L (-2.0-2.0) H 03/13/19 05:00 Ramin Test P 03/13/19 05:00 A-a Gradient 41.0 mmHg 03/13/19 05:00 FiO2 28.0 03/13/19 05:00 Blood Gas Comments Lizandro well 03/13/19 05:00 Sodium 141 mmol/L (136-145) 03/15/19 06:11 Corrected Sodium 142 mmol/L (136-145) 03/15/19 06:11 Potassium 3.9 mmol/L (3.5-5.1) 03/15/19 06:11 Chloride 96 mmol/L (98-107) L 03/15/19 06:11 Carbon Dioxide > 45.0 mmol/L (21-32) H* 03/15/19 06:11 BUN 35 mg/dL (7-18) H 03/15/19 06:11 Creatinine 0.87 mg/dL (0.55-1.02) 03/15/19 06:11 Est GFR (MDRD) Af Amer > 60 (>60) 03/15/19 06:11 Est GFR (MDRD) Non-Af > 60 (>60) 03/15/19 06:11 Glucose 125 mg/dL (65-99) H 03/15/19 06:11 Lactic Acid 1.0 mmol/L (0.4-2.0) 03/08/19 14:20 Calcium 8.6 mg/dL (8.5-10.1) 03/15/19 06:11 Corrected Calcium 9.4 mg/dL (8.5-10.1) 03/15/19 06:11 Magnesium 2.1 mg/dL (1.7-2.9) 03/08/19 14:20 Total Bilirubin 0.60 mg/dL (0.2-1.0) 03/15/19 06:11 AST 31 Units/L (15-37) 03/15/19 06:11 ALT 29 Units/L (12-78) 03/15/19 06:11 Alkaline Phosphatase 60 Units/L (46-116) 03/15/19 06:11 Creatine Kinase 39 Units/L (26-192) 03/13/19 21:45 CK-MB (CK-2) < 1.0 ng/mL (0-4.0) 03/13/19 21:45 CK/CKMB % Calc 2.6 % (<4) 03/13/19 21:45 Troponin I 0.04 ng/mL (0-1.5) 03/13/19 21:45 C-Reactive Protein 42.20 mg/L (0-3.0) H 03/08/19 14:20 B-Natriuretic Peptide 252 pg/mL (0-79) H 03/08/19 14:20 Total Protein 6.5 g/dL (6.4-8.2) 03/15/19 06:11 Albumin 3.0 g/dL (3.4-5.0) L 03/15/19 06:11 Globulin 3.5 g/dL (2.5-4.5) 03/15/19 06:11 Albumin/Globulin Ratio 0.9 Ratio (1.1-2.1) L 03/15/19 06:11 Specimen Type Catherized urine 03/09/19 09:25 Urine Color Yellow (YELLOW) 03/09/19 09:25 Urine Appearance Slightly hazy (CLEAR) 03/09/19 09:25 Urine pH 5.0 (5.0 - 8.0) 03/09/19 09:25 Ur Specific [place] 1.020 (1.000-1.030) 03/09/19 09:25 Urine Protein 2+ (NEGATIVE) 03/09/19 09:25 Urine Glucose (UA) Negative (NEGATIVE) 03/09/19 09:25 Urine Ketones Negative (NEGATIVE) 03/09/19 09:25 Urine Occult Blood Negative (NEGATIVE) 03/09/19 09:25 Urine Nitrite Negative (NEGATIVE) 03/09/19 09:25 Urine Bilirubin Negative (NEGATIVE) 03/09/19 09:25 Urine Urobilinogen Normal (NORMAL) 03/09/19 09:25 Ur Leukocyte Esterase Negative (NEGATIVE) 03/09/19 09:25 Urine RBC 0-2 /HPF (0-3) 03/09/19 09:25 Urine WBC 0-2 /HPF (0-5) 03/09/19 09:25 Ur Squamous Epith Cells Rare /HPF (NEGATIVE) 03/09/19 09:25 Uric Acid Crystals Many /HPF (NEGATIVE) 03/09/19 09:25 Triple Phos Crystals Rare /HPF (NEGATIVE) 03/09/19 09:25 Amorphous Sediment 1+ /HPF (NEGATIVE) 03/09/19 09:25 Urine Bacteria Trace /HPF (NEGATIVE) 03/09/19 09:25 Hyaline Casts Rare /LPF (NEGATIVE) 03/08/19 15:04 Urine Mucus Few /HPF (NEGATIVE) 03/08/19 15:04 Ur Culture Indicated? No/not indicated 03/09/19 09:25 Plan (1) Acute respiratory distress: Status: Acute Plan: Acute on chronic respiratory failure due to Severe COPD and fibrosis. Currently on baseline home oxygen 2-3L, continue steroids and abx. Aggressive pulmonary toilet. CXR: chronic COPD changes, pulmonary congestion. (2) COPD (chronic obstructive pulmonary disease) with acute bronchitis: Status: Acute (3) Metabolic alkalosis with respiratory acidosis: Status: Acute Plan: chronic due to underlying severe COPD. Bipap qHS (4) Idiopathic interstitial fibrosis: Status: Acute (5) Accelerated hypertension: Status: Acute Plan: continue Norvasc to 5 mg. (6) Atrial fibrillation: Status: Acute Qualifiers: Qualified Code(s): I48.91 - Unspecified atrial fibrillation Plan: Another episode of atrial fibrillation this AM after receiving 2 different breathing treatments back to back with Duonebs and Pulmicort. She is also taking Brovana. Patients HR elevated to 190s and converted back to NSR in 90s. Discussed the risk of stroke and being on anticoagulation since she has had multiple afib episodes. Will switch to Xopenex, DC duonebs and brovana. Continue cardiac monitoring. Patient mentioned that it was discussed with her in the past to start eliquis but she would not like to be on any anticoagulation at this time. (7) Anxiety: Status: Chronic (8) Hepatitis C: Status: Chronic Qualifiers: Hepatic coma status: without hepatic coma Viral hepatitis chronicity: chronic Qualified Code(s): B18.2 - Chronic viral hepatitis C (9) Osteoarthritis: Status: Chronic Qualifiers: Osteoarthritis location: unspecified site Osteoarthritis type: unspecified Qualified Code(s): M19.90 - Unspecified osteoarthritis, unspecified site
[2019-03-15] MEDS: XANAX PO PRN ×2 (13:50→22:00)
[2019-03-15] MEDS ORDERED: LOPRESSOR INJ 5 MG AMP IVP ONE (19:57)
[2019-03-15] MEDS: COLACE CAP 100 MG PO SCH (20:58)
[2019-03-16] MEDS: XOPENEX 1.25 MG/3 ML NEBULE NEB SCH ×4 (01:25→17:01)
--- NOTE | 2019-03-16 06:32 | RAD ---
HISTORY: Shortness of breathStudy: Chest AP portableComparison: 03/13/2019Findings:The heart is within normal limits in size. The xavier are normal. The aorta is calcified. The lungs are hyperinflated. No acute alveolar infiltrates or pleural effusions are identified. The bony thorax is unremarkable.IMPRESSION: Lungs hyperinflated but clear, consistent with COPD in the appropriate clinical settingReported By:
[2019-03-16 06:37] LABS: BLOOD UREA NITROGEN 33 mg/dL (7-18); CALCIUM 8.3 mg/dL (8.5-10.1); CHLORIDE 101 mmol/L (98-107); CREATININE 0.83 mg/dL (0.55-1.02); SODIUM 141 mmol/L (136-145); eGFR NON BLACK RACES > 60 (>60)
[2019-03-16 06:40] LABS: CARBON DIOXIDE 42.1 mmol/L (21-32)
[2019-03-16 07:10] LABS: BASOPHILS % (AUTO) 0.2 % (0.2-1.0); EOSINOPHILS # (AUTO) 0.5 x10^3/uL (0.0-0.2); EOSINOPHILS % (AUTO) 4.3 % (0.9-2.9); HEMATOCRIT 36.9 % (36.0-47.0); HEMOGLOBIN 12.1 g/dL (12.0-16.0); LYMPHOCYTES % (AUTO) 8.1 % (21.0-51.0); MEAN CORPUSCULAR HEMOGLOBIN 29.5 pg (27.0-34.0); MEAN CORPUSCULAR HGB CONC 32.8 g/dL (33.0-35.0); MEAN CORPUSCULAR VOLUME 89.9 fL (80.0-100.0); MEAN PLATELET VOLUME 7.1 fL (7.4-11.0); MONOCYTES % (AUTO) 8.1 % (0.0-13.0); NEUTROPHILS % (AUTO) 79.3 % (42.0-75.0); PLATELET COUNT 188 X10^3/uL (150.0-450.0); WHITE BLOOD COUNT 12.7 X10^3/uL (3.6-10.0)
[2019-03-16] MEDS: PULMICORT NEB TX 0.5 MG NEB SCH ×2 (08:37→20:20)
[2019-03-16] MEDS ORDERED: NORVASC TAB 2.5 MG ONE (08:43)
[2019-03-16] MEDS: LOPRESSOR TAB 25 MG PO SCH ×2 (08:49→21:36)
[2019-03-16] MEDS: PROTONIX INJ 40 MG VIAL IVP SCH (08:49)
[2019-03-16] MEDS: ASPIRIN EC 81 MG PO SCH (08:49)
[2019-03-16] MEDS: NORVASC TAB 2.5 MG PO SCH (08:50)
[2019-03-16] MEDS: FORTAZ or TAZICEF VIAL INJ 1 G in NS 100 ML IV + SPIKE MINIBAG* 100 ML IV SCH ×3 (08:50→21:36)
[2019-03-16] MEDS: LOVENOX INJ 30 MG SYR SC SCH (08:51)
[2019-03-16 14:16] LABS: ABG BASE EXCESS 22.4 mmol/L (-2.0-2.0)
[2019-03-16 14:17] LABS: ABG HCO3 52.1 mmol/L (22-26)
--- NOTE | 2019-03-16 17:58 | PCM.PROG ---
Progress Note - Progress Note for Day of Date of Exam: 03/16/19 - Subjective Subjective: 73 WF ADMITTED TO ICU FOR RESP DISTRESS. PT HAS BEEN ON CONTINOUS CARDIAC MONITORING, SUPPLEMENTAL O2 AND BIPAP PRN. PT HAD EPISODE OF A FIB OVER THE WEEKEND, EKG WITH SINUS RHYTHM RATE 80'S THIS AM. PT IS ON NASAL CANULA AT 3L, WITHOUT BIPAP DURING THE NIGHT REPORTS NURSING STAFF. PT IS MORE AWAKE. WE ENCOUARGE ORAL INTAKE AND PT/OT EVALUATION. PT IS ASKING TO GO HOME. WE DISCUSSED THE NEED FOR CARE IN HER HOME DUE TO EXTREME WEAKNESS AND CONTINUED RESPIRATORY DISTRESS WHICH WILL REQUIRE TRILOGY AT HOME IN ADDITION TO HER JET NEBS AND O2. WE REVIEWED XRAY AND LABS WITH PT. BUN 33, CREAT 0.83. - Past Medical Family Social History Past Med/Fam/Surg Hx: No changes since H&P Allergies: Allergies No Known Drug Allergies Allergy (Verified 03/08/19 12:35) - Review of Systems ROS: No change since H&P - Vital Signs and I&O's Vital Signs: Temperature 99.4 F Pulse Rate [Left Brachial] 85 Pulse Rate 76 Respiratory Rate 33 Blood Pressure [Right Calf] 173/77 Blood Pressure [Left Calf] 85/50 Blood Pressure [Left Arm] 163/76 Blood Pressure [Right Arm] 118/58 Blood Pressure 139/64 O2 Sat by Pulse Oximetry 92 Intake and Output: Intake & Output 03/14/19 03/15/19 03/16/19 03/17/19 11:59 11:59 11:59 11:59 Intake Total 1530 / 1530 1839 / 1839 2161 / 2161 450 / 450 Output Total 150 / 150 400 / 400 Balance 1530 / 1530 1689 / 1689 1761 / 1761 450 / 450 - Physical Exam Oriented: Normal (frail cachectic female) Eyes: Normal Ear: Normal Nose: Normal Throat: Dry Respiratory: Diminished, Rhonchi Cardiovascular: Tachycardia : Normal Auscultation: Bowel Sounds: Normal Tenderness: Normal Skin: Decreased Turgur Musculoskeletal: Back:Lumbar Psychiatric: Normal Mood Description: Anxious Affect: Anxious Speech Pattern: Clear, Appropriate - Laboratory and Diagnostics Result Diagrams: 03/16/19 06:47 03/16/19 05:40 Labs: 03/08/19 14:30 Blood Blood Culture - Final 03/08/19 14:20 Blood Blood Culture - Final 03/08/19 14:24 Sputum - Expectorated Sputum Sputum Culture - Final 03/08/19 14:24 Sputum - Expectorated Sputum - Final Laboratory WBC 12.7 X10^3/uL (3.6-10.0) H 03/16/19 06:47 RBC 4.10 X10^6/uL (3.5-5.4) 03/16/19 06:47 Hgb 12.1 g/dL (12.0-16.0) 03/16/19 06:47 Hct 36.9 % (36.0-47.0) 03/16/19 06:47 MCV 89.9 fL (80.0-100.0) 03/16/19 06:47 MCH 29.5 pg (27.0-34.0) 03/16/19 06:47 MCHC 32.8 g/dL (33.0-35.0) L 03/16/19 06:47 RDW 14.0 % (11.6-16.5) 03/16/19 06:47 Plt Count 188 X10^3/uL (150.0-450.0) 03/16/19 06:47 Plt Count Comment Adequate (ADEQUATE) 03/15/19 06:11 MPV 7.1 fL (7.4-11.0) L 03/16/19 06:47 Neut % (Auto) 79.3 % (42.0-75.0) H 03/16/19 06:47 Lymph % (Auto) 8.1 % (21.0-51.0) L 03/16/19 06:47 [place] % (Auto) 8.1 % (0.0-13.0) 03/16/19 06:47 Eos % (Auto) 4.3 % (0.9-2.9) H 03/16/19 06:47 Baso % (Auto) 0.2 % (0.2-1.0) 03/16/19 06:47 Neut # (Auto) 10.0 x10^3/uL (2.2-4.8) H 03/16/19 06:47 Lymph # (Auto) 1.0 X10^3/uL (1.3-2.9) L 03/16/19 06:47 [place] # (Auto) 1.0 x10^3/uL (0.3-0.8) H 03/16/19 06:47 Eos # (Auto) 0.5 x10^3/uL (0.0-0.2) H 03/16/19 06:47 Baso # (Auto) 0.0 X10^3/uL (0.0-0.1) 03/16/19 06:47 Absolute Nucleated RBC 0.0 /100WBC 03/16/19 06:47 Total Counted 100 03/15/19 06:11 Neutrophils % (Manual) 89 % (39-76) H 03/15/19 06:11 Band Neutrophils % 1 % (0-10) 03/15/19 06:11 Lymphocytes % (Manual) 6 % (13-43) L 03/15/19 06:11 Monocytes % (Manual) 4 % (4-9) 03/15/19 06:11 Eosinophils % (Manual) 1 % (0-6) 03/12/19 08:47 Plt Morphology Comment Normal (NORMAL) 03/15/19 06:11 RBC Morphology Normal (NORMAL) 03/15/19 06:11 PT 11.8 SECONDS (11.8-14.3) 03/08/19 14:20 INR Target Range - 03/08/19 14:20 INR 0.90 (0.8-1.3) 03/08/19 14:20 APTT 31.5 SECONDS (22.9-36.5) 03/08/19 14:20 PTT Comment - 03/08/19 14:[address] [facility] 03/16/19 14:07 ABG pH 7.390 (7.35-7.45) 03/16/19 14:07 ABG pCO2 86.0 mmHg (35.0-45.0) H* 03/16/19 14:07 ABG pO2 54.0 mmHg (80.0-100.0) L 03/16/19 14:07 ABG HCO3 52.1 mmol/L (22-26) H* 03/16/19 14:07 ABG O2 Saturation 87.0 % (90-100) L 03/16/19 14:07 ABG Base Excess 22.4 mmol/L (-2.0-2.0) H 03/16/19 14:07 Ramin Test N/a 03/16/19 14:07 A-a Gradient 38.0 mmHg 03/16/19 14:07 FiO2 28.0 03/16/19 14:07 Blood Gas Comments Pt kika well elj 03/16/19 14:07 Sodium 141 mmol/L (136-145) 03/16/19 05:40 Corrected Sodium TNP 03/16/19 05:40 Potassium 4.1 mmol/L (3.5-5.1) 03/16/19 05:40 Chloride 101 mmol/L (98-107) 03/16/19 05:40 Carbon Dioxide 42.1 mmol/L (21-32) H* 03/16/19 05:40 BUN 33 mg/dL (7-18) H 03/16/19 05:40 Creatinine 0.83 mg/dL (0.55-1.02) 03/16/19 05:40 Est GFR (MDRD) Af Amer > 60 (>60) 03/16/19 05:40 Est GFR (MDRD) Non-Af > 60 (>60) 03/16/19 05:40 Glucose 88 mg/dL (65-99) 03/16/19 05:40 Lactic Acid 1.0 mmol/L (0.4-2.0) 03/08/19 14:20 Calcium 8.3 mg/dL (8.5-10.1) L 03/16/19 05:40 Corrected Calcium 9.4 mg/dL (8.5-10.1) 03/15/19 06:11 Magnesium 2.1 mg/dL (1.7-2.9) 03/08/19 14:20 Total Bilirubin 0.60 mg/dL (0.2-1.0) 03/15/19 06:11 AST 31 Units/L (15-37) 03/15/19 06:11 ALT 29 Units/L (12-78) 03/15/19 06:11 Alkaline Phosphatase 60 Units/L (46-116) 03/15/19 06:11 Creatine Kinase 39 Units/L (26-192) 03/13/19 21:45 CK-MB (CK-2) < 1.0 ng/mL (0-4.0) 03/13/19 21:45 CK/CKMB % Calc 2.6 % (<4) 03/13/19 21:45 Troponin I 0.04 ng/mL (0-1.5) 03/13/19 21:45 C-Reactive Protein 42.20 mg/L (0-3.0) H 03/08/19 14:20 B-Natriuretic Peptide 252 pg/mL (0-79) H 03/08/19 14:20 Total Protein 6.5 g/dL (6.4-8.2) 03/15/19 06:11 Albumin 3.0 g/dL (3.4-5.0) L 03/15/19 06:11 Globulin 3.5 g/dL (2.5-4.5) 03/15/19 06:11 Albumin/Globulin Ratio 0.9 Ratio (1.1-2.1) L 03/15/19 06:11 Specimen Type Catherized urine 03/09/19 09:25 Urine Color Yellow (YELLOW) 03/09/19 09:25 Urine Appearance Slightly hazy (CLEAR) 03/09/19 09:25 Urine pH 5.0 (5.0 - 8.0) 03/09/19 09:25 Ur Specific [place] 1.020 (1.000-1.030) 03/09/19 09:25 Urine Protein 2+ (NEGATIVE) 03/09/19 09:25 Urine Glucose (UA) Negative (NEGATIVE) 03/09/19 09:25 Urine Ketones Negative (NEGATIVE) 03/09/19 09:25 Urine Occult Blood Negative (NEGATIVE) 03/09/19 09:25 Urine Nitrite Negative (NEGATIVE) 03/09/19 09:25 Urine Bilirubin Negative (NEGATIVE) 03/09/19 09:25 Urine Urobilinogen Normal (NORMAL) 03/09/19 09:25 Ur Leukocyte Esterase Negative (NEGATIVE) 03/09/19 09:25 Urine RBC 0-2 /HPF (0-3) 03/09/19 09:25 Urine WBC 0-2 /HPF (0-5) 03/09/19 09:25 Ur Squamous Epith Cells Rare /HPF (NEGATIVE) 03/09/19 09:25 Uric Acid Crystals Many /HPF (NEGATIVE) 03/09/19 09:25 Triple Phos Crystals Rare /HPF (NEGATIVE) 03/09/19 09:25 Amorphous Sediment 1+ /HPF (NEGATIVE) 03/09/19 09:25 Urine Bacteria Trace /HPF (NEGATIVE) 03/09/19 09:25 Hyaline Casts Rare /LPF (NEGATIVE) 03/08/19 15:04 Urine Mucus Few /HPF (NEGATIVE) 03/08/19 15:04 Ur Culture Indicated? No/not indicated 03/09/19 09:25 - Plan (1) Acute respiratory distress Status: Acute Plan: Acute on chronic respiratory failure due to Severe COPD and fibrosis. Currently on baseline home oxygen 2-3L, continue steroids and abx. Aggressive pulmonary toilet. CXR: chronic COPD changes, pulmonary congestion. (2) Weakness generalized Status: Acute Plan: PT CONSULT, NUTRITION (3) COPD (chronic obstructive pulmonary disease) with acute bronchitis Status: Acute (4) Anxiety Status: Chronic (5) Hepatitis C Status: Chronic Qualifiers: Viral hepatitis chronicity: chronic Hepatic coma status: without hepatic coma Qualified Code(s): B18.2 - Chronic viral hepatitis C (6) Osteoarthritis Status: Chronic Qualifiers: Osteoarthritis location: unspecified site Osteoarthritis type: unspecified Qualified Code(s): M19.90 - Unspecified osteoarthritis, unspecified site
[2019-03-16] MEDS ORDERED: NS 1/2 1000 ML IV 1,000 ML IV ONE (20:03)
[2019-03-16] MEDS: XANAX PO PRN (21:00)
[2019-03-16] MEDS: COLACE CAP 100 MG PO SCH (21:36)
[2019-03-16] MEDS: NS 1/2 1000 ML IV 1,000 ML IV SCH (21:37)
[2019-03-17] MEDS: XOPENEX 1.25 MG/3 ML NEBULE NEB SCH ×4 (00:50→17:08)
[2019-03-17] MEDS: FORTAZ or TAZICEF VIAL INJ 1 G in NS 100 ML IV + SPIKE MINIBAG* 100 ML IV SCH ×3 (05:25→21:45)
[2019-03-17 07:16] LABS: BASOPHILS # (AUTO) 0.1 X10^3/uL (0.0-0.1); BASOPHILS % (AUTO) 0.5 % (0.2-1.0); EOSINOPHILS # (AUTO) 0.7 x10^3/uL (0.0-0.2); EOSINOPHILS % (AUTO) 5.5 % (0.9-2.9); HEMOGLOBIN 13.5 g/dL (12.0-16.0); LYMPHOCYTES # (AUTO) 1.1 X10^3/uL (1.3-2.9); LYMPHOCYTES % (AUTO) 9.1 % (21.0-51.0); MEAN CORPUSCULAR HEMOGLOBIN 29.4 pg (27.0-34.0); MEAN CORPUSCULAR HGB CONC 32.8 g/dL (33.0-35.0); MEAN CORPUSCULAR VOLUME 89.6 fL (80.0-100.0); MEAN PLATELET VOLUME 8.3 fL (7.4-11.0); MONOCYTES # (AUTO) 0.9 x10^3/uL (0.3-0.8); MONOCYTES % (AUTO) 7.4 % (0.0-13.0); NEUTROPHILS # (AUTO) 9.3 x10^3/uL (2.2-4.8); NEUTROPHILS % (AUTO) 77.5 % (42.0-75.0); PLATELET COUNT 133 X10^3/uL (150.0-450.0); RED BLOOD COUNT 4.58 X10^6/uL (3.5-5.4); RED CELL DISTRIBUTION WIDTH 14.1 % (11.6-16.5)
[2019-03-17 07:36] LABS: ALANINE AMINOTRANSFERASE 22 Units/L (12-78); ALBUMIN 2.4 g/dL (3.4-5.0); ALKALINE PHOSPHATASE 56 Units/L (46-116); ASPARTATE AMINO TRANSFERASE 26 Units/L (15-37); BLOOD UREA NITROGEN 23 mg/dL (7-18); CALCIUM 8.1 mg/dL (8.5-10.1); CHLORIDE 99 mmol/L (98-107); COR CA(FOR HYPOALB) 9.4 mg/dL (8.5-10.1); CREATININE 0.71 mg/dL (0.55-1.02); SODIUM 143 mmol/L (136-145); TOTAL PROTEIN 5.5 g/dL (6.4-8.2); eGFR NON BLACK RACES > 60 (>60)
[2019-03-17 07:43] LABS: CARBON DIOXIDE 44.6 mmol/L (21-32)
[2019-03-17] MEDS: PULMICORT NEB TX 0.5 MG NEB SCH ×2 (08:59→21:05)
[2019-03-17] MEDS ORDERED: NORVASC TAB 2.5 MG ONE (09:31)
[2019-03-17] MEDS: LOVENOX INJ 30 MG SYR SC SCH (09:55)
[2019-03-17] MEDS: LOPRESSOR TAB 25 MG PO SCH ×2 (09:55→20:37)
[2019-03-17] MEDS: ASPIRIN EC 81 MG PO SCH (09:55)
[2019-03-17] MEDS: NORVASC TAB 2.5 MG PO SCH (09:55)
[2019-03-17] MEDS: PROTONIX INJ 40 MG VIAL IVP SCH (09:56)
[2019-03-17 10:23] LABS: ABG BASE EXCESS 23.6 mmol/L (-2.0-2.0)
[2019-03-17 10:24] LABS: ABG HCO3 53.3 mmol/L (22-26)
[2019-03-17] MEDS: NS 1/2 1000 ML IV 1,000 ML IV SCH (20:37)
[2019-03-17] MEDS: COLACE CAP 100 MG PO SCH (20:37)
[2019-03-18] MEDS: XOPENEX 1.25 MG/3 ML NEBULE NEB SCH ×4 (01:20→16:59)
[2019-03-18] MEDS: FORTAZ or TAZICEF VIAL INJ 1 G in NS 100 ML IV + SPIKE MINIBAG* 100 ML IV SCH ×3 (05:15→21:00)
[2019-03-18 06:17] LABS: BASOPHILS % (AUTO) 0.1 % (0.2-1.0); EOSINOPHILS # (AUTO) 0.7 x10^3/uL (0.0-0.2); EOSINOPHILS % (AUTO) 5.7 % (0.9-2.9); HEMATOCRIT 36.1 % (36.0-47.0); HEMOGLOBIN 11.9 g/dL (12.0-16.0); LYMPHOCYTES # (AUTO) 0.7 X10^3/uL (1.3-2.9); LYMPHOCYTES % (AUTO) 5.8 % (21.0-51.0); MEAN CORPUSCULAR HEMOGLOBIN 29.4 pg (27.0-34.0); MEAN CORPUSCULAR VOLUME 89.3 fL (80.0-100.0); MEAN PLATELET VOLUME 7.5 fL (7.4-11.0); MONOCYTES # (AUTO) 0.9 x10^3/uL (0.3-0.8); NEUTROPHILS % (AUTO) 81.4 % (42.0-75.0); PLATELET COUNT 165 X10^3/uL (150.0-450.0); RED BLOOD COUNT 4.05 X10^6/uL (3.5-5.4); RED CELL DISTRIBUTION WIDTH 14.2 % (11.6-16.5); WHITE BLOOD COUNT 12.3 X10^3/uL (3.6-10.0)
[2019-03-18 06:24] LABS: ALANINE AMINOTRANSFERASE 23 Units/L (12-78); ALBUMIN 2.5 g/dL (3.4-5.0); ALKALINE PHOSPHATASE 64 Units/L (46-116); ASPARTATE AMINO TRANSFERASE 29 Units/L (15-37); BLOOD UREA NITROGEN 17 mg/dL (7-18); CALCIUM 8.3 mg/dL (8.5-10.1); CHLORIDE 100 mmol/L (98-107); COR CA(FOR HYPOALB) 9.5 mg/dL (8.5-10.1); CREATININE 0.81 mg/dL (0.55-1.02); SODIUM 142 mmol/L (136-145); TOTAL PROTEIN 5.8 g/dL (6.4-8.2); eGFR NON BLACK RACES > 60 (>60)
[2019-03-18 06:28] LABS: CARBON DIOXIDE 44.2 mmol/L (21-32)
[2019-03-18] MEDS ORDERED: NORVASC TAB 2.5 MG ONE (08:31)
[2019-03-18] MEDS ORDERED: SOLU-Medrol 40 MG VIAL IVP ONE (08:47)
[2019-03-18] MEDS: ASPIRIN EC 81 MG PO SCH (08:58)
[2019-03-18] MEDS: LOPRESSOR TAB 25 MG PO SCH ×2 (08:58→20:59)
[2019-03-18] MEDS: NORVASC TAB 2.5 MG PO SCH (08:58)
[2019-03-18] MEDS: PROTONIX INJ 40 MG VIAL IVP SCH (08:58)
[2019-03-18] MEDS: LOVENOX INJ 30 MG SYR SC SCH (09:00)
[2019-03-18] MEDS: PULMICORT NEB TX 0.5 MG NEB SCH ×2 (09:04→20:50)
[2019-03-18] MEDS: PREDNISONE TAB 5 MG PO SCH (10:30)
[2019-03-18] MEDS: NS 1/2 1000 ML IV 1,000 ML IV SCH (17:52)
[2019-03-18] MEDS: COLACE CAP 100 MG PO SCH (20:59)
[2019-03-19] MEDS: XOPENEX 1.25 MG/3 ML NEBULE NEB SCH ×4 (00:25→17:27)
[2019-03-19] MEDS: FORTAZ or TAZICEF VIAL INJ 1 G in NS 100 ML IV + SPIKE MINIBAG* 100 ML IV SCH ×3 (05:14→21:02)
[2019-03-19 06:40] LABS: BASOPHILS % (AUTO) 0.2 % (0.2-1.0); EOSINOPHILS # (AUTO) 0.2 x10^3/uL (0.0-0.2); EOSINOPHILS % (AUTO) 1.7 % (0.9-2.9); HEMATOCRIT 32.6 % (36.0-47.0); HEMOGLOBIN 10.9 g/dL (12.0-16.0); LYMPHOCYTES # (AUTO) 0.7 X10^3/uL (1.3-2.9); LYMPHOCYTES % (AUTO) 6.2 % (21.0-51.0); MEAN CORPUSCULAR HEMOGLOBIN 29.9 pg (27.0-34.0); MEAN CORPUSCULAR HGB CONC 33.5 g/dL (33.0-35.0); MEAN CORPUSCULAR VOLUME 89.2 fL (80.0-100.0); MEAN PLATELET VOLUME 7.6 fL (7.4-11.0); MONOCYTES # (AUTO) 0.9 x10^3/uL (0.3-0.8); MONOCYTES % (AUTO) 8.6 % (0.0-13.0); NEUTROPHILS # (AUTO) 8.8 x10^3/uL (2.2-4.8); NEUTROPHILS % (AUTO) 83.3 % (42.0-75.0); PLATELET COUNT 174 X10^3/uL (150.0-450.0); RED BLOOD COUNT 3.65 X10^6/uL (3.5-5.4); RED CELL DISTRIBUTION WIDTH 14.1 % (11.6-16.5); WHITE BLOOD COUNT 10.6 X10^3/uL (3.6-10.0)
[2019-03-19 06:48] LABS: ALANINE AMINOTRANSFERASE 23 Units/L (12-78); ALBUMIN 2.3 g/dL (3.4-5.0); ALKALINE PHOSPHATASE 58 Units/L (46-116); ASPARTATE AMINO TRANSFERASE 29 Units/L (15-37); BLOOD UREA NITROGEN 15 mg/dL (7-18); CALCIUM 8.1 mg/dL (8.5-10.1); CHLORIDE 100 mmol/L (98-107); COR CA(FOR HYPOALB) 9.5 mg/dL (8.5-10.1); CREATININE 0.75 mg/dL (0.55-1.02); SODIUM 140 mmol/L (136-145); TOTAL PROTEIN 5.5 g/dL (6.4-8.2); eGFR NON BLACK RACES > 60 (>60)
[2019-03-19 07:35] LABS: CARBON DIOXIDE 43.2 mmol/L (21-32)
[2019-03-19] MEDS ORDERED: NORVASC TAB 2.5 MG ONE (08:16)
[2019-03-19] MEDS: PULMICORT NEB TX 0.5 MG NEB SCH ×2 (08:50→20:40)
[2019-03-19] MEDS: LOPRESSOR TAB 25 MG PO SCH ×2 (09:12→21:00)
[2019-03-19] MEDS: NORVASC TAB 2.5 MG PO SCH (09:12)
[2019-03-19] MEDS: ASPIRIN EC 81 MG PO SCH (09:12)
[2019-03-19] MEDS: PREDNISONE TAB 5 MG PO SCH (09:12)
[2019-03-19] MEDS: LOVENOX INJ 30 MG SYR SC SCH (09:13)
[2019-03-19] MEDS: PROTONIX INJ 40 MG VIAL IVP SCH (09:18)
[2019-03-19] MEDS: NS 1/2 1000 ML IV 1,000 ML IV SCH (17:45)
--- NOTE | 2019-03-19 18:24 | PCM.PROG ---
Progress Note - Progress Note for Day of Date of Exam: 03/19/19 - Subjective Subjective: Mrs. Beal is a 73-year-old white female who was admitted with chronic obstructive pulmonary disease exacerbation, respiratory distress, and acute on chronic respiratory failure with hypercapnia. For the last several nights, the patient has been wearing nasal cannula. She has not been on BiPAP. This morning she does seem more awake and alert. She is sitting up on the side of the bed. The patient states that she continues to feel weak, however, overall she looks much improved. She is more responsive. The patient is eating. She did have two bowel movements yesterday per nursing staff. The patient denies any abdominal pain at this time. She has improved oral intake. The patient continues to have shortness of breath. On exam, she is noted to have moderate respiratory distress, but not moderate to severe, maybe [id number]. She is still requiring supplemental oxygen, but is able to speak a few words without pausing for breath where previously she could only speak one word at the time, very limited verbal response previously but today is improving. - Past Medical Family Social History Past Med/Fam/Surg Hx: No changes since H&P Allergies: Allergies No Known Drug Allergies Allergy (Verified 03/08/19 12:35) - Review of Systems ROS: No change since H&P - Vital Signs and I&O's Vital Signs: Temperature 98.8 F Pulse Rate [Right Brachial] 80 Pulse Rate [Left Brachial] 74 Pulse Rate 74 Respiratory Rate 20 Blood Pressure [Right Calf] 173/77 Blood Pressure [Left Calf] 85/50 Blood Pressure [Left Arm] 140/61 Blood Pressure [Right Arm] 132/53 Blood Pressure 139/64 O2 Sat by Pulse Oximetry 91 Intake and Output: Intake & Output 03/17/19 03/18/19 03/19/19 03/20/19 11:59 11:59 11:59 11:59 Intake Total 930 / 930 2240 / 2240 2480 / 2480 460 / 460 Output Total 900 / 900 1200 / 1200 Balance 930 / 930 2240 / 2240 1580 / 1580 -740 / -740 - Physical Exam Oriented: Normal (frail cachectic female) Eyes: Normal Ear: Normal Nose: Normal Throat: Dry Respiratory: Diminished, Rhonchi Cardiovascular: Tachycardia : Normal Auscultation: Bowel Sounds: Normal Tenderness: Normal Skin: Decreased Turgur Musculoskeletal: Back:Lumbar Psychiatric: Normal Mood Description: Anxious Affect: Anxious Speech Pattern: Clear, Appropriate - Laboratory and Diagnostics Result Diagrams: 03/19/19 06:15 03/19/19 06:15 Labs: 03/08/19 14:30 Blood Blood Culture - Final 03/08/19 14:20 Blood Blood Culture - Final 03/08/19 14:24 Sputum - Expectorated Sputum Sputum Culture - Final 03/08/19 14:24 Sputum - Expectorated Sputum - Final Laboratory WBC 10.6 X10^3/uL (3.6-10.0) H 03/19/19 06:15 RBC 3.65 X10^6/uL (3.5-5.4) 03/19/19 06:15 Hgb 10.9 g/dL (12.0-16.0) L 03/19/19 06:15 Hct 32.6 % (36.0-47.0) L 03/19/19 06:15 MCV 89.2 fL (80.0-100.0) 03/19/19 06:15 MCH 29.9 pg (27.0-34.0) 03/19/19 06:15 MCHC 33.5 g/dL (33.0-35.0) 03/19/19 06:15 RDW 14.1 % (11.6-16.5) 03/19/19 06:15 Plt Count 174 X10^3/uL (150.0-450.0) 03/19/19 06:15 Plt Count Comment Adequate (ADEQUATE) 03/15/19 06:11 MPV 7.6 fL (7.4-11.0) 03/19/19 06:15 Neut % (Auto) 83.3 % (42.0-75.0) H 03/19/19 06:15 Lymph % (Auto) 6.2 % (21.0-51.0) L 03/19/19 06:15 Dunn % (Auto) 8.6 % (0.0-13.0) 03/19/19 06:15 Eos % (Auto) 1.7 % (0.9-2.9) 03/19/19 06:15 Baso % (Auto) 0.2 % (0.2-1.0) 03/19/19 06:15 Neut # (Auto) 8.8 x10^3/uL (2.2-4.8) H 03/19/19 06:15 Lymph # (Auto) 0.7 X10^3/uL (1.3-2.9) L 03/19/19 06:15 Dunn # (Auto) 0.9 x10^3/uL (0.3-0.8) H 03/19/19 06:15 Eos # (Auto) 0.2 x10^3/uL (0.0-0.2) 03/19/19 06:15 Baso # (Auto) 0.0 X10^3/uL (0.0-0.1) 03/19/19 06:15 Absolute Nucleated RBC 0.0 /100WBC 03/19/19 06:15 Total Counted 100 03/15/19 06:11 Neutrophils % (Manual) 89 % (39-76) H 03/15/19 06:11 Band Neutrophils % 1 % (0-10) 03/15/19 06:11 Lymphocytes % (Manual) 6 % (13-43) L 03/15/19 06:11 Monocytes % (Manual) 4 % (4-9) 03/15/19 06:11 Eosinophils % (Manual) 1 % (0-6) 03/12/19 08:47 Plt Morphology Comment Normal (NORMAL) 03/15/19 06:11 RBC Morphology Normal (NORMAL) 03/15/19 06:11 PT 11.8 SECONDS (11.8-14.3) 03/08/19 14:20 INR Target Range - 03/08/19 14:20 INR 0.90 (0.8-1.3) 03/08/19 14:20 APTT 31.5 SECONDS (22.9-36.5) 03/08/19 14:20 PTT Comment - 03/08/19 14:20 Sample Site Right brachial 03/17/19 10:15 ABG pH 7.400 (7.35-7.45) 03/17/19 10:15 ABG pCO2 86.0 mmHg (35.0-45.0) H* 03/17/19 10:15 ABG pO2 60.0 mmHg (80.0-100.0) L 03/17/19 10:15 ABG HCO3 53.3 mmol/L (22-26) H* 03/17/19 10:15 ABG O2 Saturation 91.0 % (90-100) 03/17/19 10:15 ABG Base Excess 23.6 mmol/L (-2.0-2.0) H 03/17/19 10:15 Ramin Test Na 03/17/19 10:15 A-a Gradient 46.0 mmHg 03/17/19 10:15 FiO2 30.0 03/17/19 10:15 Blood Gas Comments Lizandro well aw 03/17/19 10:15 Sodium 140 mmol/L (136-145) 03/19/19 06:15 Corrected Sodium TNP 03/19/19 06:15 Potassium 4.0 mmol/L (3.5-5.1) 03/19/19 06:15 Chloride 100 mmol/L (98-107) 03/19/19 06:15 Carbon Dioxide 43.2 mmol/L (21-32) H* 03/19/19 06:15 BUN 15 mg/dL (7-18) 03/19/19 06:15 Creatinine 0.75 mg/dL (0.55-1.02) 03/19/19 06:15 Est GFR (MDRD) Af Amer > 60 (>60) 03/19/19 06:15 Est GFR (MDRD) Non-Af > 60 (>60) 03/19/19 06:15 Glucose 88 mg/dL (65-99) 03/19/19 06:15 Lactic Acid 1.0 mmol/L (0.4-2.0) 03/08/19 14:20 Calcium 8.1 mg/dL (8.5-10.1) L 03/19/19 06:15 Corrected Calcium 9.5 mg/dL (8.5-10.1) 03/19/19 06:15 Magnesium 2.1 mg/dL (1.7-2.9) 03/08/19 14:20 Total Bilirubin 0.30 mg/dL (0.2-1.0) 03/19/19 06:15 AST 29 Units/L (15-37) 03/19/19 06:15 ALT 23 Units/L (12-78) 03/19/19 06:15 Alkaline Phosphatase 58 Units/L (46-116) 03/19/19 06:15 Creatine Kinase 39 Units/L (26-192) 03/13/19 21:45 CK-MB (CK-2) < 1.0 ng/mL (0-4.0) 03/13/19 21:45 CK/CKMB % Calc 2.6 % (<4) 03/13/19 21:45 Troponin I 0.04 ng/mL (0-1.5) 03/13/19 21:45 C-Reactive Protein 42.20 mg/L (0-3.0) H 03/08/19 14:20 B-Natriuretic Peptide 252 pg/mL (0-79) H 03/08/19 14:20 Total Protein 5.5 g/dL (6.4-8.2) L 03/19/19 06:15 Albumin 2.3 g/dL (3.4-5.0) L 03/19/19 06:15 Globulin 3.2 g/dL (2.5-4.5) 03/19/19 06:15 Albumin/Globulin Ratio 0.7 Ratio (1.1-2.1) L 03/19/19 06:15 Specimen Type Catherized urine 03/09/19 09:25 Urine Color Yellow (YELLOW) 03/09/19 09:25 Urine Appearance Slightly hazy (CLEAR) 03/09/19 09:25 Urine pH 5.0 (5.0 - 8.0) 03/09/19 09:25 Ur Specific [place] 1.020 (1.000-1.030) 03/09/19 09:25 Urine Protein 2+ (NEGATIVE) 03/09/19 09:25 Urine Glucose (UA) Negative (NEGATIVE) 03/09/19 09:25 Urine Ketones Negative (NEGATIVE) 03/09/19 09:25 Urine Occult Blood Negative (NEGATIVE) 03/09/19 09:25 Urine Nitrite Negative (NEGATIVE) 03/09/19 09:25 Urine Bilirubin Negative (NEGATIVE) 03/09/19 09:25 Urine Urobilinogen Normal (NORMAL) 03/09/19 09:25 Ur Leukocyte Esterase Negative (NEGATIVE) 03/09/19 09:25 Urine RBC 0-2 /HPF (0-3) 03/09/19 09:25 Urine WBC 0-2 /HPF (0-5) 03/09/19 09:25 Ur Squamous Epith Cells Rare /HPF (NEGATIVE) 03/09/19 09:25 Uric Acid Crystals Many /HPF (NEGATIVE) 03/09/19 09:25 Triple Phos Crystals Rare /HPF (NEGATIVE) 03/09/19 09:25 Amorphous Sediment 1+ /HPF (NEGATIVE) 03/09/19 09:25 Urine Bacteria Trace /HPF (NEGATIVE) 03/09/19 09:25 Hyaline Casts Rare /LPF (NEGATIVE) 03/08/19 15:04 Urine Mucus Few /HPF (NEGATIVE) 03/08/19 15:04 Ur Culture Indicated? No/not indicated 03/09/19 09:25 - Plan (1) Acute respiratory distress Status: Acute Plan: Acute on chronic respiratory failure due to Severe COPD and fibrosis. Currently on baseline home oxygen 2-3L, continue steroids and abx. Aggressive pulmonary toilet. CXR: chronic COPD changes, pulmonary congestion. (2) Weakness generalized Status: Acute Plan: PT CONSULT, NUTRITION (3) COPD (chronic obstructive pulmonary disease) with acute bronchitis Status: Acute (4) Anxiety Status: Chronic (5) Hepatitis C Status: Chronic Qualifiers: Viral hepatitis chronicity: chronic Hepatic coma status: without hepatic coma Qualified Code(s): B18.2 - Chronic viral hepatitis C (6) Osteoarthritis Status: Chronic Qualifiers: Osteoarthritis location: unspecified site Osteoarthritis type: unspecified Qualified Code(s): M19.90 - Unspecified osteoarthritis, unspecified site
[2019-03-19] MEDS: COLACE CAP 100 MG PO SCH (21:00)
[2019-03-20] MEDS: XOPENEX 1.25 MG/3 ML NEBULE NEB SCH ×5 (00:40→17:36)
[2019-03-20] MEDS: FORTAZ or TAZICEF VIAL INJ 1 G in NS 100 ML IV + SPIKE MINIBAG* 100 ML IV SCH ×3 (05:21→21:05)
[2019-03-20 06:08] LABS: BASOPHILS % (AUTO) 0.2 % (0.2-1.0); EOSINOPHILS # (AUTO) 0.4 x10^3/uL (0.0-0.2); EOSINOPHILS % (AUTO) 3.7 % (0.9-2.9); HEMATOCRIT 32.7 % (36.0-47.0); HEMOGLOBIN 10.8 g/dL (12.0-16.0); LYMPHOCYTES # (AUTO) 0.7 X10^3/uL (1.3-2.9); LYMPHOCYTES % (AUTO) 7.6 % (21.0-51.0); MEAN CORPUSCULAR HGB CONC 33.2 g/dL (33.0-35.0); MEAN CORPUSCULAR VOLUME 90.2 fL (80.0-100.0); MEAN PLATELET VOLUME 7.9 fL (7.4-11.0); MONOCYTES # (AUTO) 1.1 x10^3/uL (0.3-0.8); MONOCYTES % (AUTO) 11.4 % (0.0-13.0); NEUTROPHILS # (AUTO) 7.5 x10^3/uL (2.2-4.8); NEUTROPHILS % (AUTO) 77.1 % (42.0-75.0); PLATELET COUNT 198 X10^3/uL (150.0-450.0); RED BLOOD COUNT 3.62 X10^6/uL (3.5-5.4); RED CELL DISTRIBUTION WIDTH 14.3 % (11.6-16.5); WHITE BLOOD COUNT 9.7 X10^3/uL (3.6-10.0)
[2019-03-20 06:20] LABS: ALANINE AMINOTRANSFERASE 30 Units/L (12-78); ALBUMIN 2.5 g/dL (3.4-5.0); ALKALINE PHOSPHATASE 61 Units/L (46-116); ASPARTATE AMINO TRANSFERASE 37 Units/L (15-37); BLOOD UREA NITROGEN 13 mg/dL (7-18); CALCIUM 8.3 mg/dL (8.5-10.1); CHLORIDE 100 mmol/L (98-107); COR CA(FOR HYPOALB) 9.5 mg/dL (8.5-10.1); CREATININE 0.71 mg/dL (0.55-1.02); SODIUM 142 mmol/L (136-145); eGFR NON BLACK RACES > 60 (>60)
[2019-03-20 06:43] LABS: CARBON DIOXIDE > 45.0 mmol/L (21-32)
[2019-03-20] MEDS ORDERED: NORVASC TAB 2.5 MG ONE (08:21)
[2019-03-20] MEDS: PROTONIX INJ 40 MG VIAL IVP SCH (08:50)
[2019-03-20] MEDS: PREDNISONE TAB 5 MG PO SCH (08:50)
[2019-03-20] MEDS: ASPIRIN EC 81 MG PO SCH (08:50)
[2019-03-20] MEDS: NORVASC TAB 2.5 MG PO SCH (08:50)
[2019-03-20] MEDS: LOVENOX INJ 30 MG SYR SC SCH (08:50)
[2019-03-20] MEDS: LOPRESSOR TAB 25 MG PO SCH ×2 (08:50→20:40)
[2019-03-20 09:43] LABS: ABG BASE EXCESS 24.7 mmol/L (-2.0-2.0)
[2019-03-20 09:44] LABS: ABG ALLEN TEST POS; ABG HCO3 55.5 mmol/L (22-26)
[2019-03-20] MEDS: PULMICORT NEB TX 0.5 MG NEB SCH ×2 (09:45→20:15)
[2019-03-20] MEDS ORDERED: NS 1/2 1000 ML IV 1,000 ML IV ONE (17:35)
[2019-03-20] MEDS: NS 1/2 1000 ML IV 1,000 ML IV SCH (17:39)
[2019-03-20] MEDS: COLACE CAP 100 MG PO SCH (20:40)
[2019-03-20] MEDS ORDERED: BUTT CREAM (COMPOUND) TOP PRN (20:41)
[2019-03-21] MEDS: XOPENEX 1.25 MG/3 ML NEBULE NEB SCH ×4 (00:29→15:30)
[2019-03-21] MEDS: FORTAZ or TAZICEF VIAL INJ 1 G in NS 100 ML IV + SPIKE MINIBAG* 100 ML IV SCH ×3 (05:10→21:47)
[2019-03-21 06:30] LABS: BASOPHILS % (AUTO) 0.3 % (0.2-1.0); EOSINOPHILS # (AUTO) 0.3 x10^3/uL (0.0-0.2); EOSINOPHILS % (AUTO) 3.2 % (0.9-2.9); HEMATOCRIT 32.5 % (36.0-47.0); HEMOGLOBIN 10.7 g/dL (12.0-16.0); LYMPHOCYTES # (AUTO) 0.8 X10^3/uL (1.3-2.9); LYMPHOCYTES % (AUTO) 8.7 % (21.0-51.0); MEAN CORPUSCULAR HEMOGLOBIN 30.1 pg (27.0-34.0); MEAN CORPUSCULAR VOLUME 91.1 fL (80.0-100.0); MEAN PLATELET VOLUME 8.3 fL (7.4-11.0); MONOCYTES # (AUTO) 1.1 x10^3/uL (0.3-0.8); MONOCYTES % (AUTO) 11.3 % (0.0-13.0); NEUTROPHILS # (AUTO) 7.2 x10^3/uL (2.2-4.8); NEUTROPHILS % (AUTO) 76.5 % (42.0-75.0); PLATELET COUNT 182 X10^3/uL (150.0-450.0); RED BLOOD COUNT 3.56 X10^6/uL (3.5-5.4); RED CELL DISTRIBUTION WIDTH 14.4 % (11.6-16.5); WHITE BLOOD COUNT 9.5 X10^3/uL (3.6-10.0)
[2019-03-21 06:35] LABS: ALANINE AMINOTRANSFERASE 28 Units/L (12-78); ALBUMIN 2.5 g/dL (3.4-5.0); ALKALINE PHOSPHATASE 61 Units/L (46-116); ASPARTATE AMINO TRANSFERASE 34 Units/L (15-37); BLOOD UREA NITROGEN 14 mg/dL (7-18); CALCIUM 8.3 mg/dL (8.5-10.1); CHLORIDE 101 mmol/L (98-107); COR CA(FOR HYPOALB) 9.5 mg/dL (8.5-10.1); CREATININE 0.72 mg/dL (0.55-1.02); SODIUM 142 mmol/L (136-145); TOTAL PROTEIN 5.8 g/dL (6.4-8.2); eGFR NON BLACK RACES > 60 (>60)
[2019-03-21 07:51] LABS: ABG BASE EXCESS 22.5 mmol/L (-2.0-2.0)
[2019-03-21 07:56] LABS: ABG HCO3 53.1 mmol/L (22-26)
[2019-03-21 07:57] LABS: ABG ALLEN TEST POS
[2019-03-21] MEDS ORDERED: NORVASC TAB 2.5 MG ONE (09:09)
[2019-03-21] MEDS: LOVENOX INJ 30 MG SYR SC SCH (09:13)
[2019-03-21] MEDS: PROTONIX INJ 40 MG VIAL IVP SCH (09:14)
[2019-03-21] MEDS: LOPRESSOR TAB 25 MG PO SCH ×2 (09:14→21:47)
[2019-03-21] MEDS: ASPIRIN EC 81 MG PO SCH (09:14)
[2019-03-21] MEDS: PREDNISONE TAB 5 MG PO SCH (09:16)
[2019-03-21] MEDS: NORVASC TAB 2.5 MG PO SCH (09:16)
[2019-03-21] MEDS: XANAX PO PRN (09:17)
[2019-03-21] MEDS: PULMICORT NEB TX 0.5 MG NEB SCH ×2 (09:49→22:35)
--- NOTE | 2019-03-21 14:58 | RAD ---
HISTORY: Respiratory distressStudy: Chest AP portableComparison: 03/16/2019Findings:The heart is within normal limits in size. The xavier are normal. The lungs are markedly hyperinflated consistent with COPD. No acute alveolar infiltrates are identified. Interstitial lung changes are present. There is now small left pleural effusion present.IMPRESSION: COPD with interstitial lung changesSmallReported By:
[2019-03-21] MEDS: NS 1/2 1000 ML IV 1,000 ML IV SCH (17:21)
[2019-03-21 21:22] LABS: ABG PCO2 > 115.0 mmHg (35.0-45.0)
[2019-03-21 21:23] LABS: ABG ALLEN TEST POSTITIVE
[2019-03-21] MEDS: COLACE CAP 100 MG PO SCH (21:47)
[2019-03-21] MEDS ORDERED: ACCUNEB 1.25 MG NEBULE NEB PRN (23:35)
[2019-03-21] MEDS: SOLU-Medrol 125 MG VIAL IVP SCH (23:55)
[2019-03-22] MEDS: DUONEB 0.5 MG/3 MG (3 mL) NEB SCH ×4 (00:50→17:36)
[2019-03-22] MEDS: XANAX PO PRN (01:09)
[2019-03-22] MEDS: FORTAZ or TAZICEF VIAL INJ 1 G in NS 100 ML IV + SPIKE MINIBAG* 100 ML IV SCH ×3 (05:03→21:04)
[2019-03-22] MEDS: SOLU-Medrol 125 MG VIAL IVP SCH ×3 (05:04→17:21)
[2019-03-22 05:23] LABS: BASOPHILS % (AUTO) 0.3 % (0.2-1.0); EOSINOPHILS % (AUTO) 0.3 % (0.9-2.9); HEMATOCRIT 33.6 % (36.0-47.0); LYMPHOCYTES # (AUTO) 0.1 X10^3/uL (1.3-2.9); LYMPHOCYTES % (AUTO) 1.3 % (21.0-51.0); MEAN CORPUSCULAR HGB CONC 32.7 g/dL (33.0-35.0); MEAN CORPUSCULAR VOLUME 91.6 fL (80.0-100.0); MEAN PLATELET VOLUME 7.6 fL (7.4-11.0); MONOCYTES # (AUTO) 0.2 x10^3/uL (0.3-0.8); MONOCYTES % (AUTO) 1.7 % (0.0-13.0); NEUTROPHILS # (AUTO) 9.6 x10^3/uL (2.2-4.8); NEUTROPHILS % (AUTO) 96.4 % (42.0-75.0); PLATELET COUNT 167 X10^3/uL (150.0-450.0); RED BLOOD COUNT 3.67 X10^6/uL (3.5-5.4); RED CELL DISTRIBUTION WIDTH 14.9 % (11.6-16.5)
[2019-03-22 05:33] LABS: ABG PCO2 > 115.0 mmHg (35.0-45.0)
[2019-03-22 05:34] LABS: ABG ALLEN TEST POSITIVE
[2019-03-22 05:46] LABS: ALANINE AMINOTRANSFERASE 30 Units/L (12-78); ALBUMIN 2.7 g/dL (3.4-5.0); ALKALINE PHOSPHATASE 74 Units/L (46-116); ASPARTATE AMINO TRANSFERASE 27 Units/L (15-37); BLOOD UREA NITROGEN 16 mg/dL (7-18); CALCIUM 8.4 mg/dL (8.5-10.1); CHLORIDE 99 mmol/L (98-107); COR CA(FOR HYPOALB) 9.4 mg/dL (8.5-10.1); COR NA(FOR HYPERGLY) 144 mmol/L (136-145); CREATININE 0.77 mg/dL (0.55-1.02); SODIUM 142 mmol/L (136-145); TOTAL PROTEIN 6.3 g/dL (6.4-8.2); eGFR NON BLACK RACES > 60 (>60)
[2019-03-22 06:00] LABS: CARBON DIOXIDE > 45.0 mmol/L (21-32)
[2019-03-22 06:44] LABS: BAND NEUTROPHILS % 4 % (0-10); PLATELET MORPHOLOGY COMMENT NORMAL (NORMAL)
[2019-03-22] MEDS ORDERED: NORVASC TAB 2.5 MG ONE (08:25)
[2019-03-22] MEDS: LOPRESSOR TAB 25 MG PO SCH ×2 (08:34→21:05)
[2019-03-22] MEDS: NORVASC TAB 2.5 MG PO SCH (08:35)
[2019-03-22] MEDS: PROTONIX INJ 40 MG VIAL IVP SCH (08:35)
[2019-03-22] MEDS: ASPIRIN EC 81 MG PO SCH (08:35)
[2019-03-22] MEDS: PREDNISONE TAB 5 MG PO SCH (08:36)
[2019-03-22] MEDS: LOVENOX INJ 30 MG SYR SC SCH (08:36)
[2019-03-22] MEDS ORDERED: XOPENEX 1.25 MG/3 ML NEBULE NEB SCH (09:00)
[2019-03-22] MEDS ORDERED: XOPENEX 1.25 MG/3 ML NEBULE NEB PRN (09:16)
[2019-03-22] MEDS: PULMICORT NEB TX 0.5 MG NEB SCH ×2 (09:39→20:55)
[2019-03-22] MEDS ORDERED: NS 1/2 1000 ML IV 1,000 ML IV ONE (16:56)
[2019-03-22] MEDS: NS 1/2 1000 ML IV 1,000 ML IV SCH (17:21)
[2019-03-22] MEDS: COLACE CAP 100 MG PO SCH (21:05)
[2019-03-23] MEDS: SOLU-Medrol 125 MG VIAL IVP SCH ×2 (00:08→05:49)
[2019-03-23] MEDS: DUONEB 0.5 MG/3 MG (3 mL) NEB SCH ×3 (01:00→12:02)
[2019-03-23 05:29] LABS: BASOPHILS % (AUTO) 0.3 % (0.2-1.0); HEMOGLOBIN 10.8 g/dL (12.0-16.0); LYMPHOCYTES # (AUTO) 0.1 X10^3/uL (1.3-2.9); LYMPHOCYTES % (AUTO) 1.6 % (21.0-51.0); MEAN CORPUSCULAR HEMOGLOBIN 30.8 pg (27.0-34.0); MEAN CORPUSCULAR HGB CONC 33.8 g/dL (33.0-35.0); MEAN CORPUSCULAR VOLUME 91.3 fL (80.0-100.0); MEAN PLATELET VOLUME 8.4 fL (7.4-11.0); MONOCYTES # (AUTO) 0.2 x10^3/uL (0.3-0.8); MONOCYTES % (AUTO) 2.4 % (0.0-13.0); NEUTROPHILS # (AUTO) 8.6 x10^3/uL (2.2-4.8); NEUTROPHILS % (AUTO) 95.7 % (42.0-75.0); PLATELET COUNT 176 X10^3/uL (150.0-450.0); RED CELL DISTRIBUTION WIDTH 14.5 % (11.6-16.5)
[2019-03-23 05:33] LABS: BLOOD UREA NITROGEN 23 mg/dL (7-18); CALCIUM 8.8 mg/dL (8.5-10.1); CHLORIDE 98 mmol/L (98-107); COR NA(FOR HYPERGLY) 145 mmol/L (136-145); CREATININE 0.86 mg/dL (0.55-1.02); SODIUM 143 mmol/L (136-145); eGFR NON BLACK RACES > 60 (>60)
[2019-03-23 05:35] LABS: CARBON DIOXIDE 44.8 mmol/L (21-32)
[2019-03-23] MEDS: FORTAZ or TAZICEF VIAL INJ 1 G in NS 100 ML IV + SPIKE MINIBAG* 100 ML IV SCH (05:49)
[2019-03-23 06:00] LABS: ALANINE AMINOTRANSFERASE 24 Units/L (12-78); ALBUMIN 2.7 g/dL (3.4-5.0); ALKALINE PHOSPHATASE 69 Units/L (46-116); ASPARTATE AMINO TRANSFERASE 22 Units/L (15-37); COR CA(FOR HYPOALB) 9.8 mg/dL (8.5-10.1); TOTAL PROTEIN 6.4 g/dL (6.4-8.2)
[2019-03-23 06:04] LABS: BAND NEUTROPHILS % 2 % (0-10); PLATELET MORPHOLOGY COMMENT NORMAL (NORMAL)
--- NOTE | 2019-03-23 07:15 | RAD ---
HISTORY: COPD exacerbationStudy: Single view chestComparison: 03/21/2019Findings:Lungs are hyperinflated with coarsened interstitial markings compatible with COPD changes. There is a trace left pleural effusion. There is right apical scarring/thickening. The cardiac and mediastinal contours are within normal limits. The soft tissues are unremarkable. IMPRESSION: 1. COPD changes with trace left pleural effusion.Reported By:
[2019-03-23] MEDS ORDERED: NORVASC TAB 2.5 MG ONE (08:00)
[2019-03-23] MEDS ORDERED: LASIX IVP ONE (08:08)
[2019-03-23] MEDS: ASPIRIN EC 81 MG PO SCH (08:25)
[2019-03-23] MEDS: NORVASC TAB 2.5 MG PO SCH (08:25)
[2019-03-23] MEDS: LOPRESSOR TAB 25 MG PO SCH (08:25)
[2019-03-23 08:34] VITALS: BP 133/60
[2019-03-23] MEDS: PULMICORT NEB TX 0.5 MG NEB SCH (09:25)
[2019-03-23] MEDS: PROTONIX INJ 40 MG VIAL IVP SCH (09:36)
[2019-03-23] MEDS: PREDNISONE TAB 5 MG PO SCH ×2 (09:37→10:58)
[2019-03-23] MEDS: LOVENOX INJ 30 MG SYR SC SCH (09:37)
== END 2019-03-23 11:50 | disposition home health service (06) | DRG 189 ==
LOC: ER 12:27 → MED/SURG 17:05 → ICU 03-09 09:00 → MED/SURG 03-16 16:50
PROVIDERS: ADMIT Obstetrics & Gynecology Obstetrics; ATTEND Internal Medicine
DX: M19.90 Unspecified osteoarthritis, unspecified site; E87.4 Mixed disorder of acid-base balance; F41.9 Anxiety disorder, unspecified; J20.9 Acute bronchitis, unspecified; R79.82 Elevated C-reactive protein (CRP); J44.1 Chronic obstructive pulmonary disease with (acute) exacerbation; L89.159 Pressure ulcer of sacral region, unspecified stage; R62.7 Adult failure to thrive; R26.89 Other abnormalities of gait and mobility; I10 Essential (primary) hypertension; J96.22 Acute and chronic respiratory failure with hypercapnia; J84.112 Idiopathic pulmonary fibrosis; R53.1 Weakness; R94.31 Abnormal electrocardiogram [ECG] [EKG]; J96.21 Acute and chronic respiratory failure with hypoxia; B18.2 Chronic viral hepatitis C; I48.91 Unspecified atrial fibrillation
CPT/HCPCS: 36415; 36600; 71010; 71020; 71045; 71046; 74000; 74018; 80048; 80053; 81001; 82550; 82553; 82803; 83605; 83735; 83880; 84484; 85025; 85610; 85730; 86140; 87040; 87070; 87205; 93005; 94640; 94660; 94760; 96365; 96374; 97110; 97112; 97162; 97166; 97530; 97535; 99284; A4216; A4222; A4618; A7030; C9113; J0713; J1650; J1940; J2920; J2930; J3490; J7030; J7050; J7512; J7613; J7620; J7626